=== PATIENT | female | born 1990 | race Caucasian/White ===

== ENCOUNTER 2023-11-25 23:17 | Inpatient (IN) | payer OTHER, SELFPAY ==
--- NOTE | ~2023-11-25 | FL_ITS ---
EXAMINATION: XR FLUOROSCOPY WITH IMAGES CLINICAL INFORMATION: Laparoscopic cholecystectomy. COMPARISON: CT abdomen and pelvis 11/26/2023. TECHNIQUE: Fluoroscopy Supervised By: Dr. Aissatou Lozano. Fluoroscopy Time: 63.6 seconds. Cumulative Dose: 37.74 mGy. Images: 6. FINDINGS: Contrast is seen within the common bile duct and intrahepatic biliary ducts. Some contrast is seen in the region of the jorge alberto hepatis. Please see Dr. Aissatou Lozano's report for full details. FL/FL guidance in OR IMPRESSION: Fluoroscopy and spot films provided during laparoscopic cholecystectomy.
--- NOTE | ~2023-11-25 | US_ITS ---
EXAMINATION: US ABDOMEN LIMITED CLINICAL INFORMATION: Right upper quadrant pain. Elevated LFTs. COMPARISON: CT abdomen and pelvis 11/26/2023. TECHNIQUE: Real-time imaging of the right upper quadrant abdominal viscera. FINDINGS: PANCREAS: Evaluation of pancreas limited due to bowel gas distribution. LIVER: Liver is not enlarged with the right lobe measures 16.5 cm of increased echogenicity without intrahepatic masses or ductal dilatation is seen and there is no evidence of ascites. The liver contour is normal GALLBLADDER: Gallbladder is abnormal with multiple mobile stones. The gallbladder wall collection. Sonographic Miller's sign reported positive. COMMON BILE DUCT: Normal in caliber measuring 0.6 cm in diameter. RIGHT KIDNEY: Normal. No hydronephrosis. No renal calculi or focal parenchymal lesions. The kidney measures 9.3 cm in maximum dimension. FREE FLUID: None. US/US abdomen limited IMPRESSION: Cholelithiasis with sensitivity on compression but no other evidence of cholecystitis. Limited evaluation of the pancreas. Hepatic steatosis.
--- NOTE | ~2023-11-25 | CT_ITS ---
EXAMINATION: CT ABDOMEN AND PELVIS WITHOUT CONTRAST CLINICAL INFORMATION: Right sided abdominal pain. COMPARISON: None available. TECHNIQUE: Multidetector volumetric imaging was performed from the superior aspect of the liver through the pubic symphysis. Sagittal and coronal reformatted images were obtained on the technologist's workstation. This CT examination was performed using dose optimization techniques as appropriate, variously including the following: *Automated exposure control *Adjustment of mA and/or kV according to patient size (this includes techniques or standardized protocols for targeted exams where dose is matched to indication/reason for exam; i.e. extremities or head) *Use of iterative reconstruction technique DLP: 1481 mGy-cm FINDINGS: LUNG BASES: The visualized lung bases are unremarkable. LIVER, GALLBLADDER, AND BILIARY TREE: The liver is normal in size, shape, and attenuation. No focal hepatic lesion or biliary ductal dilatation is present. The gallbladder is unremarkable with no evidence of radiopaque gallstones, gallbladder wall thickening, or obvious pericholecystic inflammatory changes. PANCREAS: There is moderate peripancreatic infiltration/fluid. SPLEEN: Unremarkable. ADRENAL GLANDS: Unremarkable. KIDNEYS AND URETERS: The kidneys are normal in size, shape, and attenuation. No hydronephrosis, hydroureter, or calculi seen. No perinephric stranding. BLADDER: Unremarkable. GASTROINTESTINAL TRACT: The small and large bowel are unremarkable. A small tubular structure along the cecum is likely the appendix. ABDOMINAL WALL: No significant hernia is appreciated. LYMPH NODES: Normal. VASCULAR: Unremarkable. PELVIC VISCERA: Unremarkable. There is a small amount of free fluid within the pelvis. OSSEOUS STRUCTURES: Unremarkable. CT/CT abdomen pelvis wo IV con IMPRESSION: 1. Moderate peripancreatic infiltration/fluid consistent with acute pancreatitis. 2. Small amount of free fluid within the pelvis. Fleischner guidelines were followed.
--- NOTE | ~2023-11-25 | FL_ITS ---
EXAMINATION: XR FLUOROSCOPY WITH IMAGES CLINICAL INFORMATION: Cholelithiasis. COMPARISON: None available. TECHNIQUE: Fluoroscopy Supervised By: Dr. Joslyn De Leon Fluoroscopy Time: 1.9 minutes. Cumulative Dose: 74.5 mGy-cm DAP: 20.3 Gy-cm2 Images: 9 FINDINGS: There are 9 digital images obtained during ERCP with contrast opacifying the CBD, right and left hepatic ducts with no intraluminal filling defect. On the last image there is a common bile duct stent. The gallbladder has been surgically removed. FL/FL guidance in OR IMPRESSION: Fluoroscopy guidance was provided to referring physician for ERCP.
[2023-11-25 23:24] VITALS: BP 133/77; PULSE 79; RESP 18; TEMP 36.6; O2SAT 98; BMI 56.7
[2023-11-25 23:53] LABS: Appearance Urine Cloudy; Color Urine Dark Yellow; Glucose Urine UA Negative (Negative); Leukocyte Esterase Urine Small (1+) (Negative); Nitrite Urine Negative (Negative); UMIC TRIGGER UACC YES; Urine Blood Negative (Negative); Urine Ketones Negative (Negative); Urine Protein Negative (Neg-Trace)
[2023-11-25 23:56] LABS: UPreg QC Valid YES; Urine Pregnancy NEGATIVE (NEGATIVE)
[2023-11-25 23:57] LABS: Bacteria Urine 2+ (None Seen); Hyaline Casts Urine 0-2 /LPF (0-2); RBC Urine 0-2 /HPF (0-2); UACC Culture Trigger YES
[2023-11-26] VITALS (7 sets, daily range): BP systolic 113–135; BP diastolic 61–72; PULSE 78–86; RESP 16–20; TEMP 36.6–36.7; O2SAT 95–99
--- NOTE | 2023-11-26 00:30 | ED.ABDPAIN ---
HPI - Abdominal Pain General Chief Complaint: Abdominal Pain Stated Complaint: Abd pain Time Seen by Provider: 11/26/23 00:00 Source: patient Mode of arrival: ambulatory Limitations: no limitations History of Present Illness HPI narrative: A 33-year-old obese female otherwise healthy came in for right upper quadrant abdominal pain for the past few weeks progressively worse today at 18:00 pain is severe and constant associated with nausea and decreased appetite, no vomiting, no fever, no chills. Pain gets worse with food. No urinary frequency or dysuria or hematuria. Patient had a normal bowel movement this morning. Never had intra-abdominal history of surgery. Patient occasionally drink alcohol. Related Data Allergies Allergy/AdvReac Type Severity Reaction Status Date / Time No Known Allergies Allergy Verified 11/25/23 23:23 Review of Systems Review of Systems All other systems are reviewed and are negative Constitutional: Reports as per HPI and Reports no additional constitutional complaints Eyes: Reports as per HPI and Reports no additional eye complaints Reports system reviewed and no additional complaints, except as documented Cardiovascular: Reports as per HPI and Reports no additional cardiovascular complaints Respiratory: Reports as per HPI and Reports no additional respiratory complaints Gastrointestinal: Reports as per HPI and Reports no additional gastrointestinal complaints Genitourinary: Reports no additional female genitourinary complaints Musculoskeletal: Reports no additional musculoskeletal complaints Skin/Breast: Reports system reviewed and no additional complaints, except as docu Psychiatric: Reports no additional psychiatric complaints Endocrine: Reports no additional endocrine complaints Hematologic/Lymphatic: Reports no additional hematologic/lymphatic complaints Allergic/Immunologic: Reports no additional allergic/immunologic complaints Reports system reviewed and no additional complaints, except as documented and Reports Abnormal speech present [facility] Social History Social History Smoked in Last 30 Days: No Use of substances other than those prescribed or required for medical reasons: No Advance Directives: No Advance Directives Information Provided: Yes Patient : No Physical Exam ED Vital Signs: Vital Signs - 24 hr 11/25/23 23:24 11/26/23 02:25 11/26/23 05:11 Temperature 97.8 F 98 F 98.0 F Pulse Rate 79 78 Respiratory Rate 18 16 16 Blood Pressure 133/77 135/72 129/63 Pulse Oximetry 98 99 96 Oxygen Delivery Method Room Air Room Air Room Air BMI result Body Mass Index 56.7 Vital signs have been reviewed and appear to be correct. Blood pressure elevated. Heart rate normal. Respiratory rate normal. Temperature normal. Oxygen saturation normal. Appearance: Alert. Oriented X3. No acute distress. Head: Normal external exam. Normocephalic. Atraumatic. No Mary signs noted. No raccoon eyes noted Eyes: PERRLA. EOMI. Conjunctiva and sclera normal. Eyelids normal. ENT: TM's Normal. Pharynx normal. Uvula midline. Moist mucous membranes. No trismus noted. No drooling noted. No muffled voice noted. Neck: Normal inspection. Neck supple. FROM. No adenopathy. Thyroid Normal. No meningeal signs. No neck mass noted. CVS: Normal heart rate and rhythm. Heart sound normal. No murmurs noted. Pulses normal throughout. Respiratory: No respiratory distress. Painless inspiration. Breath sounds normal. No wheezes/rales/rhonchi noted. Chest nontender. No accessory muscle usage noted or decreased air movement noted. Abdomen: Soft, obese, RUQ tenderness, no guarding, no rebound tenderness, Bowel sounds normal in all 4 quadrants. No distention noted. No organomegaly noted. No visible injury noted. Back: No CVA tenderness. Full range of motion noted. Skin: Skin warm and dry. Normal skin color. Normal skin turgor. No rashes/lesions/lacerations noted. Extremities: No lower extremity edema. Extremities exhibit normal range of motion. Extremities nontender. Neuro: Oriented X 3. Cranial nerve exam: II-XII are grossly intact No motor deficit. No sensory deficit. Reflexes normal. Course Reevaluation(s) Reevaluation #1: Acute pancreatitis with elevation of LFTs, patient is morbid obese which can be reason for her pancreatitis gallbladder appeared normal on the CT, ultrasound is not available in our facility at this time, discussed with Dr. Greer to get an inpatient ultrasound in the a.m., will admit as an inpatient for IV fluids, pain management. Time: 04:08 Medical Decision Making Differential Diagnosis Differential Diagnoses: The differential diagnosis associated with the presentation includes (Pancreatitis, colitis, cholecystitis, hepatitis, appendicitis, electrolyte abnormality, severe anemia, UTI, .) Admission/Observation Consideration of admission/observation: Escalation of care including admission/observation considered Consult Healthcare Provider Management of the patient was discussed with: Hospitalist (Dr. Greer) Lab Data MDM Lab Attestation statement: I reviewed the patient's lab results. 11/26/23 00:33 11/26/23 01:27 Labs: Lab Results 11/25/23 11/26/23 11/26/23 Range/Units 23:45 00:33 01:27 WBC 9.7 (4.8-10.8) X10*3/uL RBC 4.94 (4.20-5.50) X10*6/uL Hgb 13.9 (12.0-16.0) g/dl Hct 42.3 (37.0-47.0) % MCV 85.6 (80.0-98.0) fL MCH 28.1 (27.0-33.0) pg MCHC 32.9 (31.0-35.0) g/dl RDW 12.8 (11.0-16.0) % Plt Count 232 (160-400) X10*3/uL MPV 10.2 (9.4-12.3) fL Immature Gran % (Auto) 0.4 (0.0-0.4) % Neut % (Auto) 77.5 H (45-73) % Lymph % (Auto) 15.2 L (20-40) % Vance % (Auto) 6.3 (2-11) % Eos % (Auto) 0.3 (0-4) % Baso % (Auto) 0.3 (0-2) % Lymph # (Auto) 1.5 (1.2-4.9) X10*3/uL Vance # (Auto) 0.6 (0.1-1.2) X10*3/uL Eos # (Auto) 0.0 (0.0-0.4) X10*3/uL Baso # (Auto) 0.0 (0.0-0.2) X10*3/uL Abs Immat Gran (auto) 0.04 H (0.00-0.03) X10*3/uL Absolute Neuts (auto) 7.5 (2.0-8.3) x10*3/uL Absolute Nucleated RBC 0.000 (0.0-0.012) X10*3/uL Nucleated RBC % (auto) 0.0 (0.0-0.2) /100WBC Sodium 142 (135-145) mmol/L Potassium 3.8 (3.3-5.1) mmol/L Chloride 104 (96-108) mmol/L Carbon Dioxide 28 (22-29) mmol/L Anion Gap 14 (12-20) BUN 18 H (9-16) mg/dL Creatinine 0.71 (0.5-1.4) mg/dL Estim Creat Clear Calc 169.2 Estimated GFR > 60 Random Glucose 112 (60-115) mg/dL Calcium 9.2 (8.4-10.2) mg/dL Total Bilirubin 1.6 H (0.0-1.0) mg/dL AST 442 H (5-31) U/L ALT 318 H (0-31) U/L Alkaline Phosphatase 239 H (39-117) U/L Total Protein 7.3 (6.5-8.0) g/dL Albumin 3.9 (3.5-5.0) g/dL Lipase > 3000 H (8-78) U/L Urine Color Dark Yellow Urine Appearance Cloudy Urine pH 7.0 (5.0-9.0) Ur Specific [place] 1.020 (1.005-1.025) Urine Protein Negative (Neg-Trace) mg/dL Urine Glucose (UA) Negative (Negative) mg/dL Urine Ketones Negative (Negative) mg/dL Urine Blood Negative (Negative) Urine Nitrite Negative (Negative) Ur Leukocyte Esterase Small (1+) H (Negative) Urine RBC 0-2 (0-2) /HPF Urine WBC 6-10 H (0-5) /HPF Ur Squamous Epith Cells 11-20 (0-2) /HPF Urine Bacteria 2+ (None Seen) Hyaline Casts 0-2 (0-2) /LPF Urine Test NEGATIVE (NEGATIVE) Independent Interpretation I performed an independent interpretation of an: CT Scan (Abdomen pelvis:1. Moderate peripancreatic infiltration/fluid consistent with acute pancreatitis. 2. Small amount of free fluid within the pelvis. ) Radiology Impression Discussion of test interpretation with radiology: I have reviewed the radiologist's reading. Chronic Conditions Patient?s care impacted by: Other (Morbid obesity) Medications Administered Generic Name Dose Route Start Last Admin Trade Name Freq PRN Reason Stop Dose Admin Morphine Sulfate 2 mg 11/26/23 00:21 11/26/23 00:41 Morphine Sulfate 2 Mg/Ml Cartridge IVPUSH 2 mg Q5M PRN Administration Chest Pain Protocol Discontinued Medications Generic Name Dose Route Start Last Admin Trade Name Freq PRN Reason Stop Dose Admin Sodium Chloride 1,000 mls @ 999 mls/hr 11/26/23 00:21 11/26/23 01:45 Ns IV 11/26/23 01:21 Infused .Q1H1M ONE Infusion Sodium Chloride 1,000 mls @ 999 mls/hr 11/26/23 04:14 11/26/23 05:24 Ns IV 11/26/23 05:14 999 mls/hr .Q1H1M ONE Administration Morphine Sulfate 2 mg 11/26/23 04:14 11/26/23 05:24 Morphine Sulfate 2 Mg/Ml Cartridge IVPUSH 11/26/23 04:15 2 mg ONCE ONE Administration Protocol Ondansetron HCl 4 mg 11/26/23 00:21 11/26/23 00:41 Ondansetron Hcl 4 Mg/2 Ml Vial IVPUSH 11/26/23 00:22 4 mg ONCE ONE Administration Discharge Plan Discharge Clinical Impression: Pancreatitis Patient Disposition: Admitted As Inpatient
[2023-11-26] MEDS: Morphine Sulfate 2 MG/ML CARTRIDGE IVPUSH ×6 (00:41→22:28)
[2023-11-26] MEDS: ondansetron HCL 4 MG/2 ML VIAL IVPUSH ×3 (00:41→15:12)
[2023-11-26] MEDS: 0.9 % Sodium Chloride 1,000 ML 999 ML IV ×2 (00:42→05:24)
[2023-11-26 00:43] LABS: Basophils Percent Auto 0.3 % (0-2); Eosinophils Percent Auto 0.3 % (0-4); Hematocrit 42.3 % (37.0-47.0); Hemoglobin 13.9 g/dl (12.0-16.0); Imm Gran Abs Auto 0.04 X10*3/uL (0.00-0.03); Imm Gran Pct Auto 0.4 % (0.0-0.4); Lymphocytes Absolute Auto 1.5 X10*3/uL (1.2-4.9); Lymphocytes Percent Auto 15.2 % (20-40); MANUAL DIFF FLAG NO; Mean Corpuscular HGB Conc 32.9 g/dl (31.0-35.0); Mean Corpuscular Hemoglobin 28.1 pg (27.0-33.0); Mean Corpuscular Volume 85.6 fL (80.0-98.0); Mean Platelet Volume 10.2 fL (9.4-12.3); Monocytes Absolute Auto 0.6 X10*3/uL (0.1-1.2); Monocytes Percent Auto 6.3 % (2-11); Neutrophils Absolute Auto 7.5 x10*3/uL (2.0-8.3); Neutrophils Percent Auto 77.5 % (45-73); Platelet Count 232 X10*3/uL (160-400); Red Blood Count 4.94 X10*6/uL (4.20-5.50); Red Cell Distribution Width 12.8 % (11.0-16.0); White Blood Count 9.7 X10*3/uL (4.8-10.8)
--- NOTE | 2023-11-26 00:49 | PC.NURSE ---
PT vomited large amount of liquid emesis. Provider aware.
[2023-11-26 01:56] LABS: Alanine Aminotransferase 318 U/L (0-31); Albumin Level 3.9 g/dL (3.5-5.0); Alkaline Phosphatase 239 U/L (39-117); Anion Gap 14 (12-20); Aspartate Amino Transferase 442 U/L (5-31); Bilirubin Total 1.6 mg/dL (0.0-1.0); Blood Urea Nitrogen 18 mg/dL (9-16); Calcium 9.2 mg/dL (8.4-10.2); Carbon Dioxide 28 mmol/L (22-29); Chloride 104 mmol/L (96-108); Creatinine Clr Calc Pharmacy 169.2; Estimated Glomerular Filt Rate > 60; Glucose Random 112 mg/dL (60-115); Potassium 3.8 mmol/L (3.3-5.1); Sodium 142 mmol/L (135-145); Total Protein 7.3 g/dL (6.5-8.0)
[2023-11-26 03:59] LABS: Lipase > 3000 U/L (8-78)
--- NOTE | 2023-11-26 05:34 | P.HPHOSP_ITS ---
History of Present Illness Date of Service: 11/26/23 Attending physician on admission: Aylin Vasquez Chief Complaint: Abdominal pain Emma Almanza is a 33 years old woman with no significant past medical history presents to the emergency department complaining of right upper quadrant and epigastric pain that started last night associated with multiple events of bilious vomiting. She described the pain as colicky. Her last meal before the symptoms was assumed. She denies fever, chills, diarrhea or constipation. She did not report any acute urinary symptoms. She denies alcohol abuse (only drinks in occasions -last time she drank alcoholic beverage was 2 weeks ago), no tobacco smoking or illicit drug use. She denied any cardiopulmonary. She has no history of abdominal surgeries and has never been hospitalized. In the ED, she was found to have normal vital signs. Blood workup is remarkable elevated lipase, > 3000 as well as elevated AST, ALT, total bilirubin and alk- phos. There is no leukocytosis or anemia. ED tx: NS 2 L bolus, Zofran 4 mg IV and morphine 2 mg IV. Review of Systems 2 Review of Systems: All 12 systems were reviewed and normal except as noted in HPI. [facility] Social History Smoked in Last 30 Days: No Use of substances other than those prescribed or required for medical reasons: No Advance Directives: No Advance Directives Information Provided: Yes Patient : No Meds Allergies Allergy/AdvReac Type Severity Reaction Status Date / Time No Known Allergies Allergy Verified 11/25/23 23:23 Active Medications: Current Medications Hydromorphone HCl (Hydromorphone Hcl 1 Mg/Ml Syringe) 0.5 mg IVPUSH Q4H PRN; Protocol PRN Reason: Pain, Severe (Pain Scale 7-10) Lactated Ringer's (Lr) 1,000 mls @ 125 mls/hr IVCONT .Q8H GEORGETTE Morphine Sulfate (Morphine Sulfate 2 Mg/Ml Cartridge) 2 mg IVPUSH Q5M PRN; Protocol PRN Reason: Chest Pain Last Admin: 11/26/23 00:41 Dose: 2 mg Ondansetron HCl (Ondansetron Hcl 4 Mg/2 Ml Vial) 4 mg IVPUSH Q8H PRN PRN Reason: Nausea and Vomiting Pantoprazole Sodium (Pantoprazole Sodium 40 Mg/10 Ml Vial) 40 mg IVPUSH DAILY [facility] Sodium Chloride (0.9 % Sodium Chloride Flush 3 Ml Syringe) 3 ml IVFLUSH QSHIFT GEORGETTE Physical Exam 2 Vital Signs and Narrative: Vital Signs: Last Vital Signs Temp 98.0 F 11/26/23 05:11 Pulse 78 11/26/23 05:27 Resp 16 11/26/23 05:27 BP 129/63 11/26/23 05:27 Pulse Ox 98 11/26/23 05:27 O2 Del Method Room Air 11/26/23 05:27 BMI result Body Mass Index 56.7 Constitutional - Awake and Alert, No apparent distress. Looks uncomfortable due to abdominal pain. Obese. Afebrile Eyes - No scleral icterus Heart - S1S2, RRR. Lungs - Normal lung expansion, Normal respiratory effort, No respiratory distress, CTA bilaterally Gastrointestinal - No distension. Increased bowel sounds. Tenderness to palpation: Right upper quadrant epigastrium. No rebound. No guarding Extremities - No calf tenderness bilaterally, no swelling Musculoskeletal - Normal inspection, normal ROM Skin - Warm/Dry Neurological - Alert & oriented x3. No focal weakness grossly noted. Normal speech. Normal behavior. Psychological - Appropriate affect Results Labs 11/26/23 00:33 11/26/23 01:27 Labs: Laboratory Results - last 24 hr 11/25/23 11/26/23 11/26/23 23:45 00:33 01:27 MCV 85.6 MCH 28.1 MCHC 32.9 RDW 12.8 Plt Count 232 MPV 10.2 Immature Gran % (Auto) 0.4 Neut % (Auto) 77.5 H Lymph % (Auto) 15.2 L [place] % (Auto) 6.3 Eos % (Auto) 0.3 Baso % (Auto) 0.3 Lymph # (Auto) 1.5 [place] # (Auto) 0.6 Eos # (Auto) 0.0 Baso # (Auto) 0.0 Abs Immat Gran (auto) 0.04 H Absolute Neuts (auto) 7.5 Absolute Nucleated RBC 0.000 Nucleated RBC % (auto) 0.0 Anion Gap 14 Estim Creat Clear Calc 169.2 Estimated GFR > 60 Random Glucose 112 Calcium 9.2 Total Bilirubin 1.6 H AST 442 H ALT 318 H Alkaline Phosphatase 239 H Total Protein 7.3 Albumin 3.9 Lipase > 3000 H Urine Color Dark Yellow Urine Appearance Cloudy Urine pH 7.0 Ur Specific [place] 1.020 Urine Protein Negative Urine Glucose (UA) Negative Urine Ketones Negative Urine Blood Negative Urine Nitrite Negative Ur Leukocyte Esterase Small (1+) H Urine RBC 0-2 Urine WBC 6-10 H Ur Squamous Epith Cells 11-20 Urine Bacteria 2+ Hyaline Casts 0-2 Urine Test NEGATIVE Imaging Radiologist's Impressions: Impressions Abdomen/Pelvis CT 11/26/23 01:09 IMPRESSION: 1. Moderate peripancreatic infiltration/fluid consistent with acute pancreatitis. 2. Small amount of free fluid within the pelvis. Fleischner guidelines were followed. Assessment and Plan (1) Pancreatitis: Status: Acute (2) Elevated LFTs: Status: Acute Plan Emma Almanza is a 33 years old woman admitted with: * Acute pancreatitis, secondary to choledocholithiasis? Admit to hospitalist service. Keep NPO. Start IV fluids. Pain control with Dilaudid as needed. Antiemetic therapy as needed. Check direct bilirubin. Obtain abdominal ultrasound to assess for cholelithiasis/CBD dilatation. If positive patient might need MRCP or ERCP. Continue to monitor LFTs. Gastroenterology consult for further recommendations. * Obesity. BMI 56.7 kg/m2. Weight loss. DVT prophylaxis: Heparin subcut Code status: Full Patient will need hospitalization for at least 2 midnights for acute pancreatitis treatment with IV fluids and IV pain medications. She also will need evaluation with abdominal ultrasound and assessment by subspecialty. Quality Stroke Does the patient have a stroke diagnosis?: No VTE Prior VTE?: No VTE Risk Level:: Medical - moderate - high VTE Device Contraindication: N/A - Device Ordered VTE Drug Contraindication: Treatment Not Indicated
[2023-11-26 05:47] LABS: Bilirubin Direct 1.1 mg/dL (0.0-0.5)
[2023-11-26 06:06] LABS: MANUAL DIFF FLAG NO
[2023-11-26 06:17] LABS: Basophils Percent Auto 0.2 % (0-2); Hematocrit 39.8 % (37.0-47.0); Imm Gran Abs Auto 0.05 X10*3/uL (0.00-0.03); Imm Gran Pct Auto 0.5 % (0.0-0.4); Lymphocytes Absolute Auto 0.9 X10*3/uL (1.2-4.9); Lymphocytes Percent Auto 9.6 % (20-40); Mean Corpuscular HGB Conc 32.7 g/dl (31.0-35.0); Mean Corpuscular Hemoglobin 28.6 pg (27.0-33.0); Mean Corpuscular Volume 87.5 fL (80.0-98.0); Monocytes Absolute Auto 0.2 X10*3/uL (0.1-1.2); Monocytes Percent Auto 2.1 % (2-11); Neutrophils Absolute Auto 8.6 x10*3/uL (2.0-8.3); Neutrophils Percent Auto 87.6 % (45-73); Platelet Count 222 X10*3/uL (160-400); Red Blood Count 4.55 X10*6/uL (4.20-5.50); Red Cell Distribution Width 12.7 % (11.0-16.0); White Blood Count 9.8 X10*3/uL (4.8-10.8)
[2023-11-26 06:24] LABS: Alanine Aminotransferase 343 U/L (0-31); Albumin Level 3.6 g/dL (3.5-5.0); Alkaline Phosphatase 247 U/L (39-117); Anion Gap 12 (12-20); Aspartate Amino Transferase 379 U/L (5-31); Bilirubin Total 1.8 mg/dL (0.0-1.0); Blood Urea Nitrogen 16 mg/dL (9-16); Calcium 8.7 mg/dL (8.4-10.2); Carbon Dioxide 27 mmol/L (22-29); Chloride 107 mmol/L (96-108); Creatinine Clr Calc Pharmacy 176.6; Estimated Glomerular Filt Rate > 60; Glucose Random 117 mg/dL (60-115); Potassium 4.5 mmol/L (3.3-5.1); Sodium 141 mmol/L (135-145); Total Protein 6.5 g/dL (6.5-8.0)
--- NOTE | 2023-11-26 07:44 | PM.GICN ---
History of Present Illness Data of Consult Service Date: 11/26/23 Requesting physician: Aylin Vasquez Primary Care Provider: Unknown Physician HPI Reason for consult: Elevated LFTs, pancreatitis 33 YF seen at [facility] ED on 11/26/23 with right upper quadrant and epigastric pain with multiple events of bilious vomiting since last night. Pt described the pain as colicky. Her last meal before the symptoms was assumed. She denied fever, chills, diarrhea, constipation or urinary symptoms. She denies alcohol abuse (only drinks on special occasions -last time she drank alcoholic beverage was 2 weeks ago), no tobacco smoking or illicit drug use. Pt denied any cardiac or pulmonary problems or past abdominal surgeries. She has never been hospitalized. In the ED, Labs showed an elevated lipase, > 3000, TB of 1.6, AST 442, ALT 318, AP 239. ED tx: NS 2 L bolus, Zofran 4 mg IV and morphine 2 mg IV. 11/26/[address] SCAN SHOWED: 1. Moderate peripancreatic infiltration/fluid consistent with acute pancreatitis. 2. Small amount of free fluid within the pelvis. 11/26/23 ABD US SHOWED: PANCREAS: Evaluation of pancreas limited due to bowel gas distribution. LIVER: Liver is not enlarged with the right lobe measures 16.5 cm of increased echogenicity without intrahepatic masses or ductal dilatation is seen and there is no evidence of ascites. The liver contour is normal GALLBLADDER: Gallbladder is abnormal with multiple mobile stones. The gallbladder wall collection. Sonographic Miller's sign reported positive. COMMON BILE DUCT: Normal in caliber measuring 0.6 cm in diameter. [facility]LY [facility] Social History Social History Household Members: None Housing: Condominium Do you presently have visiting nurse or other home services: No Patient Tobacco Use Status: Never used Tobacco service: No Meds Allergies Allergy/AdvReac Type Severity Reaction Status Date / Time No Known Allergies Allergy Verified 11/25/23 23:23 Active Medications: Current Medications Hydromorphone HCl (Hydromorphone Hcl 1 Mg/Ml Syringe) 0.5 mg IVPUSH Q4H PRN; Protocol PRN Reason: Pain, Severe (Pain Scale 7-10) Lactated Ringer's (Lr) 1,000 mls @ 125 mls/hr IVCONT .Q8H [facility] Morphine Sulfate (Morphine Sulfate 2 Mg/Ml Cartridge) 2 mg IVPUSH Q5M PRN; Protocol PRN Reason: Chest Pain Last Admin: 11/26/23 00:41 Dose: 2 mg Ondansetron HCl (Ondansetron Hcl 4 Mg/2 Ml Vial) 4 mg IVPUSH Q8H PRN PRN Reason: Nausea and Vomiting Pantoprazole Sodium (Pantoprazole Sodium 40 Mg/10 Ml Vial) 40 mg IVPUSH DAILY [facility] Sodium Chloride (0.9 % Sodium Chloride Flush 3 Ml Syringe) 3 ml IVFLUSH QSHIFT [facility] Home Medications Medication Instructions Recorded Confirmed Last Taken Type ibuprofen 600 mg tablet 600 mg PO DAILY PRN Pain 11/26/23 11/26/23 Unknown History Physical Exam Vital Signs: Vital Signs: Last Vital Signs Temp 98.1 F 11/26/23 07:13 Pulse 80 11/26/23 07:13 Resp 18 11/26/23 07:13 BP 113/69 11/26/23 07:13 Pulse Ox 99 11/26/23 07:13 O2 Del Method Room Air 11/26/23 07:13 BMI result Body Mass Index 56.7 Const: General: no acute distress Nutritional Appearance: obese Orientation/consciousness: patient oriented x3 Limitations: no limitations HEENT: Head: Yes normal to inspection Ears: hearing grossly normal bilaterally Eyes: Sclerae: sclerae normal Pupils: Equal, round and reactive pupils present Neck: Neck: Yes normal visual inspection Chest: Chest palpation & inspection: normal inspection of the chest Resp: Effort & Inspection: normal respiratory effort Auscultation: clear to auscultation bilaterally Cardio: Palpation: normal PMI Rate: regular rate Rhythm: regular rhythm Heart sounds: S1 normal heart sound present, S2 normal heart sound present and no murmurs GI: Palpation (GI): Soft to palpation, Tenderness to palpation present (GI) (epigastric and RUQ tenderness without rebound) and No hepatosplenomegaly present Auscultation: normal bowel sounds Rectal Exam - Female: deferred Skin: General skin exam: no rashes or lesions noted Neuro: General: patient oriented x3, gait normal and moves all extremities Cranial nerves: Yes Equal, round and reactive pupils present Psych: Appearance: grossly normal Mental Status: mental status grossly normal Results Labs 11/26/23 05:59 11/28/23 05:12 Labs: Short CBC 11/26/23 11/26/23 Range/Units 00:33 05:59 WBC 9.7 9.8 (4.8-10.8) X10*3/uL Hgb 13.9 13.0 (12.0-16.0) g/dl Hct 42.3 39.8 (37.0-47.0) % Plt Count 232 222 (160-400) X10*3/uL BMP 11/26/23 11/26/23 01:27 05:59 Sodium 142 141 Potassium 3.8 4.5 Chloride 104 107 Carbon Dioxide 28 27 BUN 18 H 16 Creatinine 0.71 0.68 Calcium 9.2 8.7 Liver Function 11/26/23 11/26/23 Range/Units 01:27 05:59 Total Bilirubin 1.6 H 1.8 H (0.0-1.0) mg/dL Direct Bilirubin 1.1 H (0.0-0.5) mg/dL AST 442 H 379 H (5-31) U/L ALT 318 H 343 H (0-31) U/L Alkaline Phosphatase 239 H 247 H (39-117) U/L Albumin 3.9 3.6 (3.5-5.0) g/dL Urine 11/25/23 Range/Units 23:45 Urine Color Dark Yellow Urine Appearance Cloudy Urine pH 7.0 (5.0-9.0) Ur Specific [place] 1.020 (1.005-1.025) Urine Protein Negative (Neg-Trace) mg/dL Urine Glucose (UA) Negative (Negative) mg/dL Assessment and Plan (1) Elevated LFTs: Status: Acute (2) Pancreatitis: Status: Acute Plan 33 YF admitted to [facility] with epigastric and RUQ pain with multiple episodes of bilious vomiting since last night. She denies alcohol abuse (only drinks on special occasions -last time she drank alcoholic beverage was 2 weeks ago). In the ED, Labs showed an elevated lipase, > 3000, TB of 1.6, AST 442, ALT 318, AP 239. Abd CT scan showed moderate peripancreatic infiltrate/fluid consistent with acute pancreatitis. Abdominal ultrasound showed abnormal gallbladder with multiple mobile stone and a positive Miller's sign and normal CBD of 6 mm. Pt has acute biliary pancreatitis and has likely passed the stone since her abdominal pain and LFTs are improving. RECOMMENDATIONS: 1. Agree with IV pain medications and antiemetics 2. Repeat LFTs and lipase this evening - order placed. If LFT's remain elevated, pt will need an MRCP to rule out CBD stone. 3. Surgical evaluation to discuss lap césar after pancreatitis resolves. Procedures Date of Service Date of Service: 11/29/23
[2023-11-26] MEDS: 0.9 % Sodium Chloride Flush 3 ML SYRINGE IVFLUSH (08:15)
[2023-11-26] MEDS: Pantoprazole Sodium 40 MG/10 ML VIAL IVPUSH (08:15)
[2023-11-26] MEDS: Lactated Ringers 1,000 ML 125 ML IVCONT ×3 (08:17→22:11)
--- NOTE | 2023-11-26 08:19 | PHA.MEDREC ---
Pharmacy Consult ? Medication Reconciliation Pharmacy has completed the medication reconciliation. Patient confirms she is taking no medication except Ibuprofen when needed.
[2023-11-26 08:53] LABS: Triglycerides 65 mg/dL (<150)
--- NOTE | 2023-11-26 11:37 | MHC.CM.PN ---
Female 33 DX Pancreatitis. She lives alone. She is independent with all functional mobility. A new HCP has been documented and scanned into the EMR. DP home self care. Family will provide transport home.
--- NOTE | 2023-11-26 14:53 | PM.EVENT ---
Event Note Date of Service: 11/26/23 Event Note: Patient seen and examined by hospitalist team earlier Seen and examined again Nausea vomiting seems to be improving but still has abdominal pain Physical exam: Unchanged from H&P Assessment and plan: Coordinated in H&P Acute pancreatitis-? Etiology unclear Continue IV fluid, added triglyceride level, GI evaluation pending Time Spent With Patient Time: Total time managing care of this patient today ____ minutes.
[2023-11-26 16:47] LABS: Alanine Aminotransferase 286 U/L (0-31); Albumin Level 3.4 g/dL (3.5-5.0); Alkaline Phosphatase 240 U/L (39-117); Aspartate Amino Transferase 213 U/L (5-31); Bilirubin Direct 0.6 mg/dL (0.0-0.5); Bilirubin Total 1.1 mg/dL (0.0-1.0); Total Protein 6.1 g/dL (6.5-8.0)
[2023-11-26 17:03] LABS: Lipase 1200 U/L (8-78)
[2023-11-27] MEDS: ondansetron HCL 4 MG/2 ML VIAL IVPUSH ×3 (02:19→21:38)
[2023-11-27] MEDS: Morphine Sulfate 2 MG/ML CARTRIDGE IVPUSH ×4 (02:20→21:38)
[2023-11-27 03:12] VITALS: BP 123/60; PULSE 88; RESP 16; TEMP 36.6; O2SAT 95
[2023-11-27] MEDS: Lactated Ringers 1,000 ML 125 ML IVCONT ×4 (03:41→19:57)
[2023-11-27 07:03] LABS: Lipase 431 U/L (8-78)
[2023-11-27] MEDS: Pantoprazole Sodium 40 MG/10 ML VIAL IVPUSH (07:37)
[2023-11-27] MEDS: 0.9 % Sodium Chloride Flush 3 ML SYRINGE IVFLUSH (07:38)
[2023-11-27 07:46] VITALS: BP 132/76; PULSE 90; RESP 16; TEMP 36.7; O2SAT 95
--- NOTE | 2023-11-27 11:02 | HO.PM.IMPN ---
Subjective Subjective Date of Service: 11/27/23 Interval History: pancreatitis , elevated lft's Review of Systems abd pain similar no nausea or vomiting or fevers Physical Exam Vital Signs: Vital Signs: Last Vital Signs Temp 98.0 F 11/27/23 07:46 Pulse 90 11/27/23 07:46 Resp 16 11/27/23 07:46 BP 132/76 11/27/23 07:46 Pulse Ox 95 11/27/23 07:46 O2 Del Method Room Air 11/27/23 07:46 BMI result Body Mass Index 56.7 Objective Data Active Medications Lactated Ringer's (Lr) 1,000 mls @ 125 mls/hr IVCONT .Q8H [facility] Last Admin: 11/27/23 03:41 Dose: 125 mls/hr Documented By: KYA Morphine Sulfate (Morphine Sulfate 2 Mg/Ml Cartridge) 2 mg IVPUSH Q4H PRN; Protocol PRN Reason: Pain, Moderate(Pain Scale 4-6) Last Admin: 11/27/23 07:38 Dose: 2 mg Documented By: LUIS Ondansetron HCl (Ondansetron Hcl 4 Mg/2 Ml Vial) 4 mg IVPUSH Q8H PRN PRN Reason: Nausea and Vomiting Last Admin: 11/27/23 02:19 Dose: 4 mg Documented By: KYA Pantoprazole Sodium (Pantoprazole Sodium 40 Mg/10 Ml Vial) 40 mg IVPUSH DAILY [facility] Last Admin: 11/27/23 07:37 Dose: 40 mg Documented By: LUIS Sodium Chloride (0.9 % Sodium Chloride Flush 3 Ml Syringe) 3 ml IVFLUSH QSHIFT [facility] Last Admin: 11/27/23 07:38 Dose: 3 ml Documented By: LUIS Labs 11/26/23 05:59 11/26/23 05:59 Labs: Laboratory Results - last 24 hr 11/26/23 11/27/23 16:23 05:06 Hold Purple Top SEE NOTE Total Bilirubin 1.1 H Direct Bilirubin 0.6 H AST 213 H ALT 286 H Alkaline Phosphatase 240 H Total Protein 6.1 L Albumin 3.4 L Lipase 1200 H 431 H Assessment and Plan (1) Elevated LFTs: Status: Acute (2) Pancreatitis: Status: Acute Plan 33 years old woman admitted with: Acute pancreatitis, secondary to choledocholithiasis? lft's,lipase improving abd similar abd ct scan: Moderate peripancreatic infiltration/fluid consistent with acute pancreatitis.Small amount of free fluid within the pelvis. abd us:Cholelithiasis with sensitivity on compression but no other evidence of cholecystitis. continue IV fluids,Pain control with Dilaudid , Antiemetic . Gifollowing ,surgery eavl for cholelithasis/pancreaitis. morbid Obesity. BMI 56.7 kg/m2. encouraged to lose weight,cut down calories Dvt prophylaxis: Heparin subcut ongoing hospitalization need for 48-72 hrs for acute pancreatitis treatment with IV fluids and IV pain medications. She also will need evaluation with abdominal ultrasound and assessment by subspecialty. Quality Stroke Does the patient have a stroke diagnosis?: No VTE Prior VTE?: No VTE Risk Level:: Medical - moderate - high VTE Device Contraindication: N/A - Device Ordered VTE Drug Contraindication: Treatment Not Indicated
[2023-11-27 15:30] VITALS: BP 120/60; PULSE 86; RESP 16; TEMP 36.2; O2SAT 96
[2023-11-27 19:57] VITALS: BP 127/60; PULSE 83; RESP 18; TEMP 36.9; O2SAT 95
[2023-11-28] MEDS: Lactated Ringers 1,000 ML 125 ML IVCONT (01:08)
[2023-11-28 03:15] VITALS: BP 131/75; PULSE 79; RESP 16; TEMP 36.7; O2SAT 94
[2023-11-28 06:38] LABS: Alanine Aminotransferase 132 U/L (0-31); Alkaline Phosphatase 172 U/L (39-117); Anion Gap 14 (12-20); Aspartate Amino Transferase 43 U/L (5-31); Bilirubin Total 0.6 mg/dL (0.0-1.0); Blood Urea Nitrogen 6 mg/dL (9-16); Calcium 8.4 mg/dL (8.4-10.2); Carbon Dioxide 26 mmol/L (22-29); Chloride 105 mmol/L (96-108); Creatinine Clr Calc Pharmacy 179.3; Estimated Glomerular Filt Rate > 60; Glucose Random 88 mg/dL (60-115); Potassium 3.9 mmol/L (3.3-5.1); Sodium 141 mmol/L (135-145); Total Protein 5.7 g/dL (6.5-8.0)
[2023-11-28 07:11] VITALS: BP 126/59; PULSE 96; RESP 18; TEMP 36.6; O2SAT 92
[2023-11-28 07:50] LABS: Lipase 63 U/L (8-78)
[2023-11-28] MEDS: Pantoprazole Sodium 40 MG/10 ML VIAL IVPUSH (08:23)
[2023-11-28] MEDS: Acetaminophen 325 MG TABLET 650 MG PO (12:20)
--- NOTE | 2023-11-28 13:08 | HO.PM.IMPN ---
Subjective Subjective Date of Service: 11/28/23 Interval History: abd pain Review of Systems abd pain somewhat improving has headaches no fevers Physical Exam Vital Signs: Vital Signs: Last Vital Signs Temp 97.8 F 11/28/23 07:11 Pulse 96 11/28/23 07:11 Resp 18 11/28/23 07:11 BP 126/59 L 11/28/23 07:11 Pulse Ox 92 11/28/23 07:11 O2 Del Method Room Air 11/28/23 07:11 BMI result Body Mass Index 56.7 Appearance: Alert.? Oriented X3.? not in distress.?. cvs: rrr, [id number] , no murmur res: clear to auscultation ,no rhonchii or wheezing abd: no rebound or guarding ,mild ruq/epigastric discomfort, bs present. ext pulses present , no cyanosis . neuro: axo3 , nonfocal. Objective Data Active Medications Acetaminophen (Acetaminophen 325 Mg Tablet) 650 mg PO Q6H PRN PRN Reason: Pain, Moderate(Pain Scale 4-6) Last Admin: 11/28/23 12:20 Dose: 650 mg Documented By: LUIS Morphine Sulfate (Morphine Sulfate 2 Mg/Ml Cartridge) 2 mg IVPUSH Q4H PRN; Protocol PRN Reason: Pain, Moderate(Pain Scale 4-6) Last Admin: 11/27/23 21:38 Dose: 2 mg Documented By: KYA Ondansetron HCl (Ondansetron Hcl 4 Mg/2 Ml Vial) 4 mg IVPUSH Q8H PRN PRN Reason: Nausea and Vomiting Last Admin: 11/27/23 21:38 Dose: 4 mg Documented By: KYA Pantoprazole Sodium (Pantoprazole Sodium 40 Mg/10 Ml Vial) 40 mg IVPUSH DAILY [facility] Last Admin: 11/28/23 08:23 Dose: 40 mg Documented By: LUIS Sodium Chloride (0.9 % Sodium Chloride Flush 3 Ml Syringe) 3 ml IVFLUSH QSHIFT [facility] Last Admin: 11/28/23 07:51 Dose: Not Given Documented By: LUIS Non-Admin Reason: IV Running Labs 11/26/23 05:59 11/28/23 05:12 Labs: Laboratory Results - last 24 hr 11/28/23 05:12 Hold Purple Top SEE NOTE Anion Gap 14 Estim Creat Clear Calc 179.3 Estimated GFR > 60 Random Glucose 88 Calcium 8.4 Total Bilirubin 0.6 AST 43 H ALT 132 H Alkaline Phosphatase 172 H Total Protein 5.7 L Albumin 3.0 L Lipase 63 Microbiology Microbiology Results: Microbiology 11/25/23 Unknown Urine Culture - Final Urine clean catch - Urine bellamy top Assessment and Plan (1) Elevated LFTs: Status: Acute (2) Pancreatitis: Status: Acute Assessment and Plan: 33 years old woman admitted with: Acute pancreatitis, secondary to choledocholithiasis? lft's,lipase improving abd similar abd ct scan: Moderate peripancreatic infiltration/fluid consistent with acute pancreatitis.Small amount of free fluid within the pelvis. abd us:Cholelithiasis with sensitivity on compression but no other evidence of cholecystitis. continue IV fluids,Pain control with Dilaudid , Antiemetic . Gifollowing ,surgery eval for cholelithasis/pancreaitis. morbid Obesity. BMI 56.7 kg/m2. encouraged to lose weight,cut down calories Dvt prophylaxis: Heparin subcut ongoing hospitalization need for 48-72 hrs for acute pancreatitis treatment with IV fluids and IV pain medications. She also will need evaluation with abdominal ultrasound and assessment by subspecialty. Quality Stroke Does the patient have a stroke diagnosis?: No VTE Prior VTE?: No VTE Risk Level:: Medical - moderate - high VTE Device Contraindication: N/A - Device Ordered VTE Drug Contraindication: Treatment Not Indicated
[2023-11-28 14:55] VITALS: BP 135/75; PULSE 68; RESP 18; TEMP 36.1; O2SAT 97
[2023-11-28] MEDS: Lactated Ringers 1,000 ML 80 ML IVCONT ×2 (15:01→23:22)
--- NOTE | 2023-11-28 15:12 | PM.CNGS ---
History of Present Illness Consult details Consult date: 11/28/23 Reason for consult: abdominal pain Requesting physician: Melissa Holley Narrative: THE PATIENT IS A 33-YEAR-OLD FEMALE WITH A BMI OF 56 who presented with abdominal pain nausea and who it was determined had moderate pancreatitis with elevated lipase in 3000 range. She denies any alcohol intake no significant medications that are causative. Right upper quadrant ultrasound showed gallbladder with multiple stones in the common bile duct at around 0.6 cm. GI saw the patient after she was admitted and she was treated conservatively and her LFTs which were elevated decreased by the next day. As a result we were determining that her pancreatitis was most likely causative to small gallstones causing partial blockage of the common bile duct and as a result causing blockage of the pancreatic drainage and hence some degree of pancreatitis. By hospital day 3. However her LFTs were much improved and her lipase was back to normal. She was tolerating clear liquids well without any other significant abdominal pain. We are being consulted to asked to carry out laparoscopic cholecystectomy for the cholelithiasis. Patient has never had any surgery before. She is gained and lost weight over time. Currently she is 340 lb. Review of Systems Review of Systems: Yes all other systems are reviewed and are negative [facility] Social History Social History Household Members: None Housing: Condominium Do you presently have visiting nurse or other home services: No Patient Tobacco Use Status: Never used Tobacco service: No Meds Allergies Allergy/AdvReac Type Severity Reaction Status Date / Time No Known Allergies Allergy Verified 11/25/23 23:23 Active Medications: Current Medications Acetaminophen (Acetaminophen 325 Mg Tablet) 650 mg PO Q6H PRN PRN Reason: Pain, Moderate(Pain Scale 4-6) Last Admin: 11/28/23 12:20 Dose: 650 mg Lactated Ringer's (Lr) 1,000 mls @ 80 mls/hr IVCONT .[id number] [facility] Last Admin: 11/28/23 15:01 Dose: 80 mls/hr Morphine Sulfate (Morphine Sulfate 2 Mg/Ml Cartridge) 2 mg IVPUSH Q4H PRN; Protocol PRN Reason: Pain, Moderate(Pain Scale 4-6) Last Admin: 11/27/23 21:38 Dose: 2 mg Ondansetron HCl (Ondansetron Hcl 4 Mg/2 Ml Vial) 4 mg IVPUSH Q8H PRN PRN Reason: Nausea and Vomiting Last Admin: 11/27/23 21:38 Dose: 4 mg Pantoprazole Sodium (Pantoprazole Sodium 40 Mg/10 Ml Vial) 40 mg IVPUSH DAILY [facility] Last Admin: 11/28/23 08:23 Dose: 40 mg Sodium Chloride (0.9 % Sodium Chloride Flush 3 Ml Syringe) 3 ml IVFLUSH QSHIFT [facility] Last Admin: 11/28/23 07:51 Dose: Not Given Home Medications Medication Instructions Recorded Confirmed Last Taken Type ibuprofen 600 mg tablet 600 mg PO DAILY PRN Pain 11/26/23 11/26/23 Unknown History Physical Exam Vital Signs: Vital Signs: Last Vital Signs Temp 97.0 F 11/28/23 14:55 Pulse 68 11/28/23 14:55 Resp 18 11/28/23 14:55 BP 135/75 11/28/23 14:55 Pulse Ox 97 11/28/23 14:55 O2 Del Method Room Air 11/28/23 14:55 BMI result Body Mass Index 56.7 Const: General: cooperative, healthy appearing, comfortable and no acute distress Orientation/consciousness: patient oriented x3 Eyes: Other: Nonicteric Resp: Effort & Inspection: normal respiratory effort Auscultation: clear to auscultation bilaterally Cardio: Rate: regular rate Rhythm: regular rhythm GI: Other: Abdomen is obese but she is relatively soft tender in the epigastric and little lower midline area a little less tender in the right upper quadrant and not tender in the left upper quadrant or lower abdomen. No guarding no rebound no peritoneal signs. Skin: Other: Nonicteric Neuro: General: patient oriented x3 Cranial nerves: Yes CN's II-XII intact bilaterally Extrem: General: Yes normal to inspection Psych: Appearance: grossly normal Mental Status: mental status grossly normal Speech and movement: Normal speech and movement present Affect: normal affect Thought process: Normal thought process present Thought content: Normal thought content present Insight: Good insight present (Psych) Judgement: Good judgement present (Psych) Results Labs 11/26/23 05:59 11/28/23 05:12 Labs: Abnormal lab results 11/28/23 Range/Units 05:12 BUN 6 L (9-16) mg/dL AST 43 H (5-31) U/L ALT 132 H (0-31) U/L Alkaline Phosphatase 172 H (39-117) U/L Total Protein 5.7 L (6.5-8.0) g/dL Albumin 3.0 L (3.5-5.0) g/dL BMP 11/28/23 05:12 Sodium 141 Potassium 3.9 Chloride 105 Carbon Dioxide 26 BUN 6 L Creatinine 0.67 Calcium 8.4 Liver Function 11/28/23 Range/Units 05:12 Total Bilirubin 0.6 (0.0-1.0) mg/dL AST 43 H (5-31) U/L ALT 132 H (0-31) U/L Alkaline Phosphatase 172 H (39-117) U/L Albumin 3.0 L (3.5-5.0) g/dL Urine 11/25/23 Range/Units 23:45 Urine Color Dark Yellow Urine Appearance Cloudy Urine pH 7.0 (5.0-9.0) Ur Specific [place] 1.020 (1.005-1.025) Urine Protein Negative (Neg-Trace) mg/dL Urine Glucose (UA) Negative (Negative) mg/dL Urine Test NEGATIVE (NEGATIVE) All other labs normal. Imaging Abdominal ultrasound report/results: report reviewed Assessment and Plan (1) Pancreatitis: Status: Acute Plan 33-year-old female with acute pancreatitis probably secondary to gallstones. She presented with elevated LFTs as well as very elevated lipase which over the last 3 days of conservative care has decreased to almost normal for her lipase her LFTs are considerably improved. At this point she is less tender and with her lipase improved will consider carrying out laparoscopic cholecystectomy. We will put her on the add on for tomorrow. She can continue to do liquid diet today and see how she feels with that. Eventually she does need to do something about her weight and we talked a little bit about that. She is interested in doing something a little more significant to improve her health. Procedures Date of Service Date of Service: 11/28/23
[2023-11-28 19:12] VITALS: BP 131/60; PULSE 69; RESP 18; TEMP 36.2; O2SAT 98
[2023-11-29] VITALS (12 sets, daily range): BP systolic 107–140; BP diastolic 62–82; PULSE 80–103; RESP 12–19; TEMP 36.1–37.5; O2SAT 94–99
[2023-11-29 06:15] LABS: Alanine Aminotransferase 97 U/L (0-31); Alkaline Phosphatase 172 U/L (39-117); Anion Gap 11 (12-20); Aspartate Amino Transferase 28 U/L (5-31); Bilirubin Total 0.6 mg/dL (0.0-1.0); Blood Urea Nitrogen 5 mg/dL (9-16); Calcium 8.2 mg/dL (8.4-10.2); Carbon Dioxide 29 mmol/L (22-29); Chloride 107 mmol/L (96-108); Creatinine Clr Calc Pharmacy 190.7; Estimated Glomerular Filt Rate > 60; Glucose Random 94 mg/dL (60-115); Potassium 3.8 mmol/L (3.3-5.1); Sodium 143 mmol/L (135-145); Total Protein 5.7 g/dL (6.5-8.0)
--- NOTE | 2023-11-29 08:58 | HO.ANESPROP2 ---
[facility] Active Problems Active Problems: All Active Problems (Updated 11/26/23 @ 16:21 by Mumtaz Isbell MD) Elevated LFTs (Acute) Pancreatitis (Acute) Past Medical History Medical History (Updated 11/29/23 @ 09:36 by Lacie Bonilla RN) No known health problems Patient : No Family History Family history of problems with anesthesia: No Surgical History Surgical History (Updated 11/29/23 @ 09:36 by Lacie Bonilla RN) No history of previous surgery History of Problems with Anesthesia: No Social History Social History Household Members: None Housing: Condominium Do you presently have visiting nurse or other home services: No Patient Tobacco Use Status: Never used Tobacco Second Hand Smoke Exposure: No service: No Meds Allergies Allergy/AdvReac Type Severity Reaction Status Date / Time No Known Allergies Allergy Verified 11/25/23 23:23 Active Medications: Current Medications Acetaminophen (Acetaminophen 325 Mg Tablet) 650 mg PO Q6H PRN PRN Reason: Pain, Moderate(Pain Scale 4-6) Last Admin: 11/28/23 12:20 Dose: 650 mg Lactated Ringer's (Lr) 1,000 mls @ 80 mls/hr IVCONT .[id number] [facility] Last Admin: 11/29/23 03:17 Dose: Not Given Morphine Sulfate (Morphine Sulfate 2 Mg/Ml Cartridge) 2 mg IVPUSH Q4H PRN; Protocol PRN Reason: Pain, Moderate(Pain Scale 4-6) Last Admin: 11/27/23 21:38 Dose: 2 mg Ondansetron HCl (Ondansetron Hcl 4 Mg/2 Ml Vial) 4 mg IVPUSH Q8H PRN PRN Reason: Nausea and Vomiting Last Admin: 11/27/23 21:38 Dose: 4 mg Pantoprazole Sodium (Pantoprazole Sodium 40 Mg/10 Ml Vial) 40 mg IVPUSH DAILY [facility] Last Admin: 11/28/23 08:23 Dose: 40 mg Sodium Chloride (0.9 % Sodium Chloride Flush 3 Ml Syringe) 3 ml IVFLUSH QSHIFT [facility] Last Admin: 11/29/23 07:12 Dose: Not Given Home Medications Medication Instructions Recorded Confirmed Last Taken Type ibuprofen 600 mg tablet 600 mg PO DAILY PRN Pain 11/26/23 11/26/23 Unknown History Exam Height,Weight and Vital Signs: Height 5 ft 5 in Weight 154.54 kg Last Vital Signs Temp 97 F 11/29/23 07:36 Pulse 80 11/29/23 07:36 Resp 18 11/29/23 07:36 BP 132/80 11/29/23 07:36 Pulse Ox 95 11/29/23 07:36 O2 Del Method Room Air 11/29/23 07:36 Pertinent Lab Results Pertinent Lab Results: Laboratory Tests 11/25/23 11/26/23 11/26/23 23:45 00:33 01:27 WBC 9.7 RBC 4.94 Hgb 13.9 Hct 42.3 MCV 85.6 MCH 28.1 MCHC 32.9 RDW 12.8 Plt Count 232 MPV 10.2 Immature Gran % (Auto) 0.4 Neut % (Auto) 77.5 H Lymph % (Auto) 15.2 L Gage % (Auto) 6.3 Eos % (Auto) 0.3 Baso % (Auto) 0.3 Lymph # (Auto) 1.5 Gage # (Auto) 0.6 Eos # (Auto) 0.0 Baso # (Auto) 0.0 Abs Immat Gran (auto) 0.04 H Absolute Neuts (auto) 7.5 Absolute Nucleated RBC 0.000 Nucleated RBC % (auto) 0.0 Hold Purple Top Sodium 142 Potassium 3.8 Chloride 104 Carbon Dioxide 28 Anion Gap 14 BUN 18 H Creatinine 0.71 Estim Creat Clear Calc 169.2 Estimated GFR > 60 Random Glucose 112 Calcium 9.2 Total Bilirubin 1.6 H Direct Bilirubin 1.1 H AST 442 H ALT 318 H Alkaline Phosphatase 239 H Total Protein 7.3 Albumin 3.9 Triglycerides 65 Lipase > 3000 H Urine Color Dark Yellow Urine Appearance Cloudy Urine pH 7.0 Ur Specific [place] 1.020 Urine Protein Negative Urine Glucose (UA) Negative Urine Ketones Negative Urine Blood Negative Urine Nitrite Negative Ur Leukocyte Esterase Small (1+) H Urine RBC 0-2 Urine WBC 6-10 H Ur Squamous Epith Cells 11-20 Urine Bacteria 2+ Hyaline Casts 0-2 Urine Test NEGATIVE 11/26/23 11/26/23 11/27/23 05:59 16:23 05:06 WBC 9.8 RBC 4.55 Hgb 13.0 Hct 39.8 MCV 87.5 MCH 28.6 MCHC 32.7 RDW 12.7 Plt Count 222 MPV 10.0 Immature Gran % (Auto) 0.5 H Neut % (Auto) 87.6 H Lymph % (Auto) 9.6 L Gage % (Auto) 2.1 Eos % (Auto) 0.0 Baso % (Auto) 0.2 Lymph # (Auto) 0.9 L Gage # (Auto) 0.2 Eos # (Auto) 0.0 Baso # (Auto) 0.0 Abs Immat Gran (auto) 0.05 H Absolute Neuts (auto) 8.6 H Absolute Nucleated RBC 0.000 Nucleated RBC % (auto) 0.0 Hold Purple Top SEE NOTE Sodium 141 Potassium 4.5 Chloride 107 Carbon Dioxide 27 Anion Gap 12 BUN 16 Creatinine 0.68 Estim Creat Clear Calc 176.6 Estimated GFR > 60 Random Glucose 117 H Calcium 8.7 Total Bilirubin 1.8 H 1.1 H Direct Bilirubin 0.6 H AST 379 H 213 H ALT 343 H 286 H Alkaline Phosphatase 247 H 240 H Total Protein 6.5 6.1 L Albumin 3.6 3.4 L Triglycerides Lipase 1200 H 431 H Urine Color Urine Appearance Urine pH Ur Specific [place] Urine Protein Urine Glucose (UA) Urine Ketones Urine Blood Urine Nitrite Ur Leukocyte Esterase Urine RBC Urine WBC Ur Squamous Epith Cells Urine Bacteria Hyaline Casts Urine Test 11/28/23 11/29/23 05:12 05:19 WBC RBC Hgb Hct MCV MCH MCHC RDW Plt Count MPV Immature Gran % (Auto) Neut % (Auto) Lymph % (Auto) Gage % (Auto) Eos % (Auto) Baso % (Auto) Lymph # (Auto) Gage # (Auto) Eos # (Auto) Baso # (Auto) Abs Immat Gran (auto) Absolute Neuts (auto) Absolute Nucleated RBC Nucleated RBC % (auto) Hold Purple Top SEE NOTE Sodium 141 143 Potassium 3.9 3.8 Chloride 105 107 Carbon Dioxide 26 29 Anion Gap 14 11 L BUN 6 L 5 L Creatinine 0.67 0.63 Estim Creat Clear Calc 179.3 190.7 Estimated GFR > 60 > 60 Random Glucose 88 94 Calcium 8.4 8.2 L Total Bilirubin 0.6 0.6 Direct Bilirubin AST 43 H 28 ALT 132 H 97 H Alkaline Phosphatase 172 H 172 H Total Protein 5.7 L 5.7 L Albumin 3.0 L 3.0 L Triglycerides Lipase 63 Urine Color Urine Appearance Urine pH Ur Specific [place] Urine Protein Urine Glucose (UA) Urine Ketones Urine Blood Urine Nitrite Ur Leukocyte Esterase Urine RBC Urine WBC Ur Squamous Epith Cells Urine Bacteria Hyaline Casts Urine Test Airway Mallampati Class: II TM Dist: <=3cm Neck ROM: Full Loose/Missing/Broken Teeth: No Heart: rrr Lungs: cta b/l Assessment and Plan Assessment Anesthesia Assessment: Anesthesia Plan Discussed and Chart Reviewed Final Anesthetic Review Family History of Problems with Anesthesia: No History of Problems with Anesthesia: No NPO: Yes ASA Class: III Final Preanesthetic Review: No Changes in Pt Med Stat, Consent Obtained/Reviewed and Anes Risks/Benef Reviewed Patient Risk: Intermediate Procedure Risk: Intermediate Anesthetic Plan Anesthetic Plan: GA Disposition: Standard PACU
[2023-11-29] MEDS: Pantoprazole Sodium 40 MG/10 ML VIAL IVPUSH (08:59)
[2023-11-29] MEDS: Lactated Ringers 1,000 ML 80 ML IVCONT ×2 (09:42→16:22)
--- NOTE | 2023-11-29 10:37 | P.PNIM_ITS ---
Subjective Subjective Date of Service: 11/29/23 Interval History: abd pain Review of Systems abd pain somewhat improved significantly no fevers Physical Exam 2 Vital Signs: Vital Signs: Last Vital Signs Temp 98.4 F 11/29/23 09:37 Pulse 91 11/29/23 09:37 Resp 16 11/29/23 09:37 BP 124/82 11/29/23 09:37 Pulse Ox 96 11/29/23 09:37 O2 Del Method Room Air 11/29/23 09:37 BMI result Body Mass Index 56.7 Appearance: Alert.? Oriented X3.? not in distress.?. cvs: rrr, [id number] , no murmur res: clear to auscultation ,no rhonchii or wheezing abd: no rebound or guarding ,nt , bs present. ext pulses present , no cyanosis . neuro: axo3 , nonfocal. Objective Data Active Medications Acetaminophen (Acetaminophen 325 Mg Tablet) 650 mg PO Q6H PRN PRN Reason: Pain, Moderate(Pain Scale 4-6) Last Admin: 11/28/23 12:20 Dose: 650 mg Documented By: LUIS Fentanyl (Fentanyl Citrate/Pf 100 Mcg/2 Ml Vial) 25 mcg IVPUSH Q5M PRN; Protocol PRN Reason: Pain, Moderate(Pain Scale 4-6) Hydromorphone HCl (Hydromorphone Hcl 0.5 Mg/0.5 Ml Syringe) 0.5 mg IVPUSH Q5M PRN; Protocol PRN Reason: Pain, Severe (Pain Scale 7-10) Lactated Ringer's (Lr) 1,000 mls @ 80 mls/hr IVCONT .[id number] [facility] Last Admin: 11/29/23 03:17 Dose: Not Given Documented By: SILVIA Non-Admin Reason: IV Running Lactated Ringer's (Lr) 1,000 mls @ 80 mls/hr IVCONT .[id number] [facility] Last Admin: 11/29/23 09:42 Dose: 80 mls/hr Documented By: BULMARO Morphine Sulfate (Morphine Sulfate 2 Mg/Ml Cartridge) 2 mg IVPUSH Q4H PRN; Protocol PRN Reason: Pain, Moderate(Pain Scale 4-6) Last Admin: 11/27/23 21:38 Dose: 2 mg Documented By: KYA Ondansetron HCl (Ondansetron Hcl 4 Mg/2 Ml Vial) 4 mg IVPUSH Q8H PRN PRN Reason: Nausea and Vomiting Last Admin: 11/27/23 21:38 Dose: 4 mg Documented By: KYA Pantoprazole Sodium (Pantoprazole Sodium 40 Mg/10 Ml Vial) 40 mg IVPUSH DAILY [facility] Last Admin: 11/29/23 08:59 Dose: 40 mg Documented By: RADHA Sodium Chloride (0.9 % Sodium Chloride Flush 3 Ml Syringe) 3 ml IVFLUSH QSHIFT [facility] Last Admin: 11/29/23 07:12 Dose: Not Given Documented By: RADHA Non-Admin Reason: IV Running Labs 11/26/23 05:59 11/29/23 05:19 Labs: Laboratory Results - last 24 hr 11/29/23 05:19 Anion Gap 11 L Estim Creat Clear Calc 190.7 Estimated GFR > 60 Random Glucose 94 Calcium 8.2 L Total Bilirubin 0.6 AST 28 ALT 97 H Alkaline Phosphatase 172 H Total Protein 5.7 L Albumin 3.0 L Assessment and Plan (1) Elevated LFTs: Status: Acute (2) Pancreatitis: Status: Acute Assessment and Plan: 33 years old woman admitted with: Acute pancreatitis, secondary to choledocholithiasis? lft's,lipase improving abd similar abd ct scan: Moderate peripancreatic infiltration/fluid consistent with acute pancreatitis.Small amount of free fluid within the pelvis. abd us:Cholelithiasis with sensitivity on compression but no other evidence of cholecystitis. continue IV fluids,Pain control with Dilaudid , Antiemetic . Gifollowing ,surgery eval for possible lap césar. morbid Obesity. BMI 56.7 kg/m2. encouraged to lose weight,cut down calories Dvt prophylaxis: Heparin subcut ongoing hospitalization need for 48-72 hrs for acute pancreatitis treatment with IV fluids and IV pain medications. She also will need evaluation with abdominal ultrasound and assessment by subspecialty. Quality Stroke Does the patient have a stroke diagnosis?: No VTE Prior VTE?: No VTE Risk Level:: Medical - moderate - high VTE Device Contraindication: N/A - Device Ordered VTE Drug Contraindication: Treatment Not Indicated
--- NOTE | 2023-11-29 13:02 | P.CDIM_ITS ---
PROVIDER RESPONSE TEXT: To clarify, the appropriate diagnosis supported by the clinical indicators: Obesity Due to excess calories QUERY TEXT: PHYSICIAN'S DOCUMENTATION REQUEST Date of Query: 11/29/2023 09:30 AM EST Patient Name: Emma Almanza Admit Date: 11/26/2023 Dear Melissa Holley, A review of the medical record indicates additional documentation may be needed. Please review below and update the documentation accordingly. Clinical Indicators: Height: ( ) 5'5 Weight: ( ) 154.54 kg BMI: ( ) 56.7 Other Clinical Notes Supporting Significance of the BMI: Per Nutritional Risk Assessment 11/26/23: on therapeutic diet If possible, please provide an associated diagnosis related to the abnormal BMI, such as: Overweight Obesity Due to excess calories Obesity Drug induced Obesity Due to other cause Specify the other cause Severe or Morbid Obesity With alveolar hypoventilation Severe or Morbid Obesity Without alveolar hypoventilation BMI is not significant Other (explain) Clinically unable to determine (explain) Thank you, Rina Mcdaniel RN Use of terms such as suspected, likely, concern for, or probable (associated with a specific diagnosi s that is being evaluated, monitored, or treated as if it exists) are acceptable and can be coded in the inpatient se tting, when documented at the time of discharge. Please use your independent medical judgment in providing your response. THIS QUERY IS PART OF THE PERMANENT MEDICAL RECORD
--- NOTE | 2023-11-29 13:15 | P.OP_ITS ---
Operative Note Operative Note Date of Service: 11/29/23 Narrative: Preop diagnosis--gallstone pancreatitis cholelithiasis possible choledocholithiasis Postop diagnosis-- same Procedure done-- laparoscopic cholecystectomy with intraop cholangiogram Surgeon--Marta Runway Model-- Elvira Ny Anesthesia -- GE TA History--patient is a 33-year-old female presents with abdominal pain nausea vomiting and was noted to have gallstone pancreatitis. Her pancreatitis has resolved and ultrasound showed gallstones in her gallbladder little dilated duct at 0.6 cm. As a result she comes in now for laparoscopic cholecystectomy and cholangiogram Findings-- gallbladder with some adhesions and some small stone material in the gallbladder. Cholangiogram shows good fillings of the radicles and the common bile duct but not great filling of the duodenal. There is some contrast goes th rough into the duodenal but this is lagging. Glucagon was given and despite this contrast was not emptying well into the duodenal. All this is worrisome for common bile duct stone. Procedure-- Patient was brought to the operative room under Anesthesia guidance was intubated. She had compression stockings placed before and DrZoraida Received preoperative antibiotics. Her abdomen was prepped and draped in standard surgical fashion. An infraumbilical incision was created after numbing up the area with the corpus and Marcaine with epinephrine. Dissection was carried down to the anterior abdominal wall fascia which was grasped with Arlyn's and transected 0 Vicryl pursestring suture placed and the peritoneum popped in with finger dissection. The De Leon trocar was introduced and pneumoperitoneum was established at 15 mmHg pressure the 5 mm 0 camera was introduced and the gallbladder was not well visualized due to the significant amount of fat in a large liver hanging over it. Three 5 mm ports were then placed under direct visualization using local 1 in the epigastric area and 2 in the right upper quadrant area. The gallbladder was then identified and retracted superiorly and laterally. Some adhesions were taken down bluntly and then the cystic triangle was dissected out. The cystic duct and cystic artery was dissected out such that they were the only structures entering into the gallbladder and this facilitated the critical view. It was decided to do a cholangiogram at this point in time and so a small ductotomy was made in the cystic duct and the cholangiogram catheter introduced through the cystic duct the balloon inflated and then the duct irrigated with saline. This did not reveal any significant leak and so the cholangiogram was carried out with the contrast. This showed the distal common bile duct filling and some contrast going into the duodenal. Patient was then positioned down little had up and the hepatic radicals filled well. A true common bile duct stone or filling defect was not visualized however the injection of contrast was difficult met with resistance and there was not great flow and emptying of the bile tree into the duodenal. Glucagon was given to relax the sphincter of Oddi in the hopes that this would allow for passage of a stone or any distal obstruction and emptying of the contrast but this did not help very much. At this point the cholangiocatheter was removed and the rest of the case completed. The cystic duct was then clipped 3 clips down and 1 up and then transected completely. The cystic artery was behind and had a branched went up to the anterior and posterior aspect and this was clipped together. The gallbladder was then removed intact from the liver bed with hook cautery placed in the Endo bag and removed from the infraumbilical port site. Pneumoperitoneum was then reestablished and the area examined and it was noted that cystic duct clips and cystic artery clips all looked fine and intact the liver bed was dry no bleeding. Will suction irrigation was carried out and then the ports removed under direct visualization. The pursestring suture was approximated at the infraumbilical area and then another figure of 8 0 Vicryl stitch used to completely close off the infraumbilical opening of the muscle and fascia. Subcuticular sutures were then placed and dry dressings with Tegaderm was placed put. At the end of the case all sponge instrument needle counts were correct estimated blood loss was minimal specimen sent was the gallbladder patient was extubated returned stable to the recovery room. Plan to discuss with GI team possibility to carry out postop ERCP.
[2023-11-29] MEDS: HYDROmorphone HCl 0.5 MG/0.5 ML SYRINGE IVPUSH (13:20)
--- NOTE | 2023-11-29 13:26 | MHC.CM.PN ---
Per MD rounds no dc today. Patient scheduled for a Lap Jelly today.Discharge is anticipated tomorrow. DP home self care. Patients Mother will provide transportation home.
[2023-11-29] MEDS: Acetaminophen 1,000 MG/100 ML PIGGYBACK 400 MG IV (13:46)
[2023-11-29] MEDS: oxyCODONE HCl Immed Release 5 MG TABLET 10 MG PO ×2 (15:00→19:14)
[2023-11-29] MEDS: Acetaminophen 325 MG TABLET 650 MG PO (19:14)
[2023-11-30] MEDS: ondansetron HCL 4 MG/2 ML VIAL IVPUSH ×2 (03:30→14:36)
[2023-11-30] MEDS: oxyCODONE HCl Immed Release 5 MG TABLET 10 MG PO (03:31)
[2023-11-30] MEDS: Lactated Ringers 1,000 ML 80 ML IVCONT ×2 (03:34→14:36)
[2023-11-30 03:42] VITALS: BP 163/82; PULSE 74; RESP 18; TEMP 36.6; O2SAT 98
[2023-11-30 06:24] VITALS: RESP 18
[2023-11-30] MEDS: Morphine Sulfate 4 MG/ML CARTRIDGE IVPUSH (06:24)
--- NOTE | 2023-11-30 06:38 | PC.NURSE ---
0615-PATIENT AWAKENED AND STATED TO HAVE 7/10 ABDOMINAL PAIN, NPO STATUS, FEELING DRY HEAVES AND VOMITED 50ML BILE LIQUID. MEDICATED WITH MORPHINE FOR PAIN WITH EFFECT PENDING. REINFORCED NPO AND WATER WITH PO MEDS ONLY. CONT TO MONITOR
[2023-11-30 06:55] VITALS: RESP 18
[2023-11-30 07:40] VITALS: BP 138/72; PULSE 69; RESP 18; TEMP 36.2; O2SAT 97
[2023-11-30 07:56] LABS: Alanine Aminotransferase 91 U/L (0-31); Albumin Level 3.5 g/dL (3.5-5.0); Alkaline Phosphatase 206 U/L (39-117); Aspartate Amino Transferase 32 U/L (5-31); Bilirubin Direct 0.3 mg/dL (0.0-0.5); Bilirubin Total 0.5 mg/dL (0.0-1.0); Total Protein 6.9 g/dL (6.5-8.0)
--- NOTE | 2023-11-30 08:03 | P.PNGS_ITS ---
Subjective Subjective Date of Service: 11/30/23 <Elvira Ny PA-C - Last Filed: 11/30/23 09:06> 11/30/23 <Jonathan Estrada MD - Last Filed: 11/30/23 11:02> Interval history: Had some nausea and vomiting last night after receiving morphine. Was able to tolerate some jello last night. Was OOB and ambulating yesterday but developed severe RUQ and right shoulder pain. Otherwise having some mild incisional pain at the umbilicus. <Elvira Ny PA-C - Last Filed: 11/30/23 09:06> Physical Exam 2 Vital Signs: Vital Signs: Last Vital Signs Temp 97.2 F 11/30/23 07:40 Pulse 69 11/30/23 07:40 Resp 18 11/30/23 07:40 BP 138/72 11/30/23 07:40 Pulse Ox 97 11/30/23 07:40 O2 Del Method Room Air 11/30/23 07:40 O2 Flow Rate 2 11/29/23 14:18 BMI result Body Mass Index 56.7 <Elvira Ny PA-C - Last Filed: 11/30/23 09:06> Const: General: comfortable, no acute distress and alert <CHANDA Rivas Last Filed: 11/30/23 09:06> Orientation/consciousness: patient oriented x3 <CHANDA Rivas Last Filed: 11/30/23 09:06> Resp: Effort & Inspection: normal respiratory effort <CHANDA Rivas Last Filed: 11/30/23 09:06> GI: Inspection: No distended and Yes incision (dressings intact) <CHANDA Rivas Last Filed: 11/30/23 09:06> Palpation (GI): Soft to palpation, Tenderness to palpation present (GI) (mild incisional), no guarding and not rigid <CHANDA Rivas Last Filed: 11/30/23 09:06> Percussion: Yes normal to percussion <CHANDA Rivas Last Filed: 11/30/23 09:06> Skin: General skin exam: no rashes or lesions noted and no jaundice < Elvira Ny PA-C - Last Filed: 11/30/23 09:06> Neuro: General: patient oriented x3 <CHANDA Rivas Last Filed: 11/30/23 09:06> Objective Data Active Medications Acetaminophen (Acetaminophen 325 Mg Tablet) 650 mg PO Q6H PRN PRN Reason: Pain, Moderate(Pain Scale 4-6) Last Admin: 11/29/23 19:14 Dose: 650 mg Documented By: LIVIER Lactated Ringer's (Lr) 1,000 mls @ 80 mls/hr IVCONT .[id number] [facility] Last Admin: 11/30/23 03:34 Dose: 80 mls/hr Documented By: EMANUEL Morphine Sulfate (Morphine Sulfate 4 Mg/Ml Cartridge) 4 mg IVPUSH Q4H PRN; Protocol PRN Reason: Pain, Severe (Pain Scale 7-10) Last Admin: 11/30/23 06:24 Dose: 4 mg Documented By: EMANUEL Ondansetron HCl (Ondansetron Hcl 4 Mg/2 Ml Vial) 4 mg IVPUSH Q8H PRN PRN Reason: Nausea and Vomiting Last Admin: 11/30/23 03:30 Dose: 4 mg Documented By: EMANUEL Oxycodone HCl (Oxycodone Hcl Immed Release 5 Mg Tablet) 5 mg PO Q4H PRN PRN Reason: Pain, Moderate(Pain Scale 4-6) Oxycodone HCl (Oxycodone Hcl Immed Release 5 Mg Tablet) 10 mg PO Q4H PRN PRN Reason: Pain, Severe (Pain Scale 7-10) Last Admin: 11/30/23 03:31 Dose: 10 mg Documented By: EMANUEL Pantoprazole Sodium (Pantoprazole Sodium 40 Mg/10 Ml Vial) 40 mg IVPUSH DAILY [facility] Last Admin: 11/29/23 08:59 Dose: 40 mg Documented By: RADHA Sodium Chloride (0.9 % Sodium Chloride Flush 3 Ml Syringe) 3 ml IVFLUSH QSHIFT [facility] Last Admin: 11/30/23 07:15 Dose: Not Given Documented By: FREDDIE Non-Admin Reason: IV Running <CHANDA Rivas Filed: 11/30/23 09:06> Labs CBC & Chem 7: 11/26/23 05:59 11/29/23 05:19 <Elvira Ny PA-C - Last Filed: 11/30/23 09:06> Labs: Laboratory Results - last 24 hr 11/30/23 06:58 Hold Purple Top SEE NOTE Total Bilirubin 0.5 Direct Bilirubin 0.3 AST 32 H ALT 91 H Alkaline Phosphatase 206 H Total Protein 6.9 Albumin 3.5 <Elvira Ny PA-C - Last Filed: 11/30/23 09:06> Procedures Date of Service Date of Service: 11/30/23 <Elvira Ny PA-C - Last Filed: 11/30/23 09:06> 11/30/23 <Jonathan Estrada MD - Last Filed: 11/30/23 11:02> Progress Note: A&P Assessment and plan (1) Pancreatitis: Status: Acute <Elvira Ny PA-C - Last Filed: 11/30/23 09:06> (2) Elevated LFTs: Status: Acute <Elvira Ny PA-C - Last Filed: 11/30/23 09:06> (3) S/P laparoscopic cholecystectomy: Status: Acute <Elvira Ny PA-C - Last Filed: 11/30/23 09:06> Assessment and Plan: sore on incisions looks well abd soft LFTS low diet as tolerated as per GI - no ERCP planned at this time seen and examined independently <Jonathan Estrada MD - Last Filed: 11/30/23 11:02> Assessment and Plan: POD #1 s/p lap césar for gallstone pancreatitis. ?Filling defect on IOC yesterday. LFTs this morning reviewed and stable. Per Dr. De Leon of GI rec- advance diet and see if tolerated, repeat LFTs in AM. If unable to tolerate diet or jump in LFTs, plan for ERCP to evaluate. VSS. Abd benign with appropriate post op tenderness, dressings intact. Doing well from surgical standpoint. < Elvira Ny PA-C - Last Filed: 11/30/23 09:06> Time Spent With Patient Time: Total time managing care of this patient today ____ minutes. <Elvira Ny PA-C - Last Filed: 11/30/23 09:06> Quality Stroke Does the patient have a stroke diagnosis?: No <Elvira Ny PA-C - Last Filed: 11/30/23 09:06> VTE Prior VTE?: No <Elvira Ny PA-C - Last Filed: 11/30/23 09:06> VTE Risk Level:: Medical - moderate - high <Elvira Ny PA-C - Last Filed: 11/30/23 09:06> VTE Device Contraindication: N/A - Device Ordered <Elvira Ny PA-C - Last Filed: 11/30/23 09:06> VTE Drug Contraindication: Treatment Not Indicated <Elvira Ny PA-C - Last Filed: 11/30/23 09:06>
[2023-11-30] MEDS: Pantoprazole Sodium 40 MG/10 ML VIAL IVPUSH (08:26)
[2023-11-30] MEDS: Acetaminophen 1,000 MG/100 ML PIGGYBACK 400 MG IV (10:20)
--- NOTE | 2023-11-30 13:01 | HO.PM.IMPN ---
Subjective Subjective Date of Service: 11/30/23 Interval History: s/p CCy yesterday, having n/v this morning and pain Physical Exam Vital Signs: Vital Signs: Last Vital Signs Temp 97.2 F 11/30/23 07:40 Pulse 69 11/30/23 07:40 Resp 18 11/30/23 07:40 BP 138/72 11/30/23 07:40 Pulse Ox 97 11/30/23 07:40 O2 Del Method Room Air 11/30/23 07:40 O2 Flow Rate 2 11/29/23 14:18 BMI result Body Mass Index 56.7 Const: Other: General: AO X 3, no acute distress Resp: CTA bilateral CVS: S1,S2,RRR GI: +BS, pain around incisions Skin: No rash Neuro: motor grossly intact Psych: appropriate affect Objective Data Active Medications Acetaminophen (Acetaminophen 325 Mg Tablet) 650 mg PO Q6H PRN PRN Reason: Pain, Moderate(Pain Scale 4-6) Last Admin: 11/29/23 19:14 Dose: 650 mg Documented By: LIVIER Hydromorphone HCl (Hydromorphone Hcl 0.5 Mg/0.5 Ml Syringe) 0.5 mg IVPUSH Q3H PRN; Protocol PRN Reason: Pain, Severe (Pain Scale 7-10) Lactated Ringer's (Lr) 1,000 mls @ 80 mls/hr IVCONT .[id number] GEORGETTE Last Admin: 11/30/23 03:34 Dose: 80 mls/hr Documented By: EMANUEL Ketorolac Tromethamine (Ketorolac Tromethamine 30 Mg/Ml Vial) 30 mg IVPUSH Q6H PRN PRN Reason: abdominal pain Ondansetron HCl (Ondansetron Hcl 4 Mg/2 Ml Vial) 4 mg IVPUSH Q8H PRN PRN Reason: Nausea and Vomiting Last Admin: 11/30/23 03:30 Dose: 4 mg Documented By: EMANUEL Oxycodone HCl (Oxycodone Hcl Immed Release 5 Mg Tablet) 5 mg PO Q4H PRN PRN Reason: Pain, Moderate(Pain Scale 4-6) Oxycodone HCl (Oxycodone Hcl Immed Release 5 Mg Tablet) 10 mg PO Q4H PRN PRN Reason: Pain, Severe (Pain Scale 7-10) Last Admin: 11/30/23 03:31 Dose: 10 mg Documented By: EMANUEL Pantoprazole Sodium (Pantoprazole Sodium 40 Mg/10 Ml Vial) 40 mg IVPUSH DAILY [facility] Last Admin: 11/30/23 08:26 Dose: 40 mg Documented By: FREDDIE Sodium Chloride (0.9 % Sodium Chloride Flush 3 Ml Syringe) 3 ml IVFLUSH QSHIFT [facility] Last Admin: 11/30/23 07:15 Dose: Not Given Documented By: FREDDIE Non-Admin Reason: IV Running Labs 11/26/23 05:59 11/29/23 05:19 Labs: Laboratory Results - last 24 hr 11/30/23 06:58 Hold Purple Top SEE NOTE Total Bilirubin 0.5 Direct Bilirubin 0.3 AST 32 H ALT 91 H Alkaline Phosphatase 206 H Total Protein 6.9 Albumin 3.5 Assessment and Plan (1) Elevated LFTs: Status: Acute (2) Pancreatitis: Status: Acute Assessment and Plan: 33 years old woman admitted with: Acute gallstone pancreatitis, choledocholithiasis? s/p CCY on 11/29 and tolerate liquid diet but this AM, N/V and pain. LFTs trending down ?feeling defect on IOC, GI recommends advancing diet and monotoring LFTs morbid Obesity. BMI 56.7 kg/m2. encouraged to lose weight,cut down calories Dvt prophylaxis: Heparin subcut need for inpt: post op pain, requiring IV narc, n/v and diet been advanced slowly Quality Stroke Does the patient have a stroke diagnosis?: No VTE Prior VTE?: No VTE Risk Level:: Medical - moderate - high VTE Device Contraindication: N/A - Device Ordered VTE Drug Contraindication: Treatment Not Indicated
--- NOTE | 2023-11-30 13:22 | HO.POSTANES ---
Post Anesthesia Evaluation Post Anesthesia Evaluation Date of Service: 11/30/23 Vital Signs: Vital Signs Temp Pulse Resp BP Pulse Ox O2 Del Method 11/30/23 07:40 97.2 F 69 18 138/72 97 Room Air 11/30/23 06:55 18 11/30/23 06:24 18 11/30/23 03:42 97.8 F 74 18 163/82 H 98 Room Air Anesthesia: General Endotracheal-GETA Mental Status: Awake Pain Control: Satisfactory Nausea/Vomiting: Mild Hydration: Adequate Anesthesia-Related Issues: No Anes. Related Issues
[2023-11-30 15:22] VITALS: BP 162/93; PULSE 83; RESP 18; TEMP 36.2; O2SAT 99
[2023-11-30] MEDS: Ketorolac Tromethamine 30 MG/ML VIAL IVPUSH (15:37)
--- NOTE | 2023-11-30 17:45 | PC.NURSE ---
Pt ambulating in jones several times throughout the day. States she passed some flatus. Tolerating po in small amounts and mostly fluids
[2023-11-30] MEDS: HYDROmorphone HCl 0.5 MG/0.5 ML SYRINGE IVPUSH ×2 (19:10→23:19)
[2023-11-30 19:42] VITALS: BP 168/85; PULSE 81; RESP 18; TEMP 36.3; O2SAT 100
--- NOTE | 2023-11-30 23:22 | PC.NURSE ---
Pt medicated per MAR for abd pain, Pt has 4 gauze dressing to abdomen, scant staining noted to mid upper and mid lower dressing. pt resting in bed, respirations even and unlabored, call corona within reach.
[2023-12-01 03:36] VITALS: BP 129/59; PULSE 84; RESP 16; TEMP 36; O2SAT 99
[2023-12-01] MEDS: Ketorolac Tromethamine 30 MG/ML VIAL IVPUSH ×2 (04:12→20:06)
[2023-12-01 06:00] LABS: Alanine Aminotransferase 64 U/L (0-31); Alkaline Phosphatase 153 U/L (39-117); Aspartate Amino Transferase 22 U/L (5-31); Bilirubin Direct 0.3 mg/dL (0.0-0.5); Bilirubin Total 0.5 mg/dL (0.0-1.0); Total Protein 5.8 g/dL (6.5-8.0)
[2023-12-01] MEDS: 0.9 % Sodium Chloride Flush 3 ML SYRINGE IVFLUSH ×2 (08:08→15:34)
[2023-12-01] MEDS: Pantoprazole Sodium 40 MG/10 ML VIAL IVPUSH (08:08)
--- NOTE | 2023-12-01 08:26 | P.PNGS_ITS ---
Subjective Subjective Date of Service: 12/02/23 Interval history: States she had some vomiting yesterday Feels much better No vomiting or nausea overnight Hungry Pain control much better Physical Exam 2 Vital Signs: Vital Signs: Last Vital Signs Temp 96.8 F 12/01/23 03:36 Pulse 84 12/01/23 03:36 Resp 16 12/01/23 03:36 BP 129/59 L 12/01/23 03:36 Pulse Ox 99 12/01/23 03:36 O2 Del Method Room Air 12/01/23 03:36 O2 Flow Rate 2 11/29/23 14:18 BMI result Body Mass Index 56.7 Const: General: comfortable and no acute distress Resp: Effort & Inspection: normal respiratory effort Cardio: Rate: regular rate GI: Other: All incisions clean and dry Palpation (GI): Soft to palpation, not firm and no guarding Objective Data Active Medications Acetaminophen (Acetaminophen 325 Mg Tablet) 650 mg PO Q6H PRN PRN Reason: Pain, Moderate(Pain Scale 4-6) Last Admin: 11/29/23 19:14 Dose: 650 mg Documented By: LIVIER Hydromorphone HCl (Hydromorphone Hcl 0.5 Mg/0.5 Ml Syringe) 0.5 mg IVPUSH Q3H PRN; Protocol PRN Reason: Pain, Severe (Pain Scale 7-10) Last Admin: 11/30/23 23:19 Dose: 0.5 mg Documented By: SILVIA Ketorolac Tromethamine (Ketorolac Tromethamine 30 Mg/Ml Vial) 30 mg IVPUSH Q6H PRN PRN Reason: abdominal pain Last Admin: 12/01/23 04:12 Dose: 30 mg Documented By: SILVIA Ondansetron HCl (Ondansetron Hcl 4 Mg/2 Ml Vial) 4 mg IVPUSH Q8H PRN PRN Reason: Nausea and Vomiting Last Admin: 11/30/23 14:36 Dose: 4 mg Documented By: FREDDIE Oxycodone HCl (Oxycodone Hcl Immed Release 5 Mg Tablet) 5 mg PO Q4H PRN PRN Reason: Pain, Moderate(Pain Scale 4-6) Oxycodone HCl (Oxycodone Hcl Immed Release 5 Mg Tablet) 10 mg PO Q4H PRN PRN Reason: Pain, Severe (Pain Scale 7-10) Last Admin: 11/30/23 03:31 Dose: 10 mg Documented By: EMANUEL Pantoprazole Sodium (Pantoprazole Sodium 40 Mg/10 Ml Vial) 40 mg IVPUSH DAILY [facility] Last Admin: 12/01/23 08:08 Dose: 40 mg Documented By: DOREENEMA Sodium Chloride (0.9 % Sodium Chloride Flush 3 Ml Syringe) 3 ml IVFLUSH QSHIFT [facility] Last Admin: 12/01/23 08:08 Dose: 3 ml Documented By: COTEMA Labs 11/26/23 05:59 11/29/23 05:19 Labs: Laboratory Results - last 24 hr 12/01/23 05:30 Hold Purple Top SEE NOTE Total Bilirubin 0.5 Direct Bilirubin 0.3 AST 22 ALT 64 H Alkaline Phosphatase 153 H Total Protein 5.8 L Albumin 3.0 L Procedures Date of Service Date of Service: 12/02/23 Progress Note: A&P Assessment and plan (1) S/P laparoscopic cholecystectomy: Status: Acute Assessment and Plan: Clinically looks well Bilirubin remains low Rest of LFTs trending down She had vomited yesterday again but feels much better today Off nausea or vomiting overnight Okay to restart diet, and advance as tolerated Time Spent With Patient Time: Total time managing care of this patient today ____ minutes. Quality Stroke Does the patient have a stroke diagnosis?: No VTE Prior VTE?: No VTE Risk Level:: Medical - moderate - high VTE Device Contraindication: N/A - Device Ordered VTE Drug Contraindication: Treatment Not Indicated
--- NOTE | 2023-12-01 09:54 | PM.DS ---
DS: Providers Provider Date of Service: 12/01/23 Date of admission: 11/26/23 05:21 Primary care physician: Paz Berrios DNP, RECONCILIATION SPECIALIST, N Consults: 11/26/23 05:33 Consult to Gastroenterology Routine Consulting Provider: Cheryl Burdick Reason for consultation: Pancreatitis, elevated LFTs Has provider been notified: No 11/26/23 16:37 Consult to General Surgery Routine Consulting Provider: [facility] General Surgeons Reason for consultation: cholelitasis ,pancreatitis Has provider been notified: No DS: Diagnosis Discharge Diagnosis (1) S/P laparoscopic cholecystectomy: Status: Acute DS: Summary Hospital Course Hospital Course: Chief Complaint: Abdominal pain Emma Almanza is a 33 years old woman with no significant past medical history presents to the emergency department complaining of right upper quadrant and epigastric pain that started last night associated with multiple events of bilious vomiting. She described the pain as colicky. Her last meal before the symptoms was assumed. She denies fever, chills, diarrhea or constipation. She did not report any acute urinary symptoms. She denies alcohol abuse (only drinks in occasions -last time she drank alcoholic beverage was 2 weeks ago), no tobacco smoking or illicit drug use. She denied any cardiopulmonary. She has no history of abdominal surgeries and has never been hospitalized. In the ED, she was found to have normal vital signs. Blood workup is remarkable elevated lipase, > 3000 as well as elevated AST, ALT, total bilirubin and alk-phos. There is no leukocytosis or anemia. ED tx: NS 2 L bolus, Zofran 4 mg IV and morphine 2 mg IV. hospital course: patient presented with abdominal pain and workup revealed gallstone pancreatitis, choledocholithiasis, with lipase level greater than 3000. Over the course of hospitalization LFTs trended down along with lipase and thus did not need ERCP and eventually underwent cholecystecomy. Lipase level is now normal, and LFTs continue to trend down, but patient noted to have persistent pain and unable to tolerate diet, therefore evaluated by Gastroenterology and underwent ERCP that showed bile leak from cystic duct underwent stent placement, a possible filling defect was noted a sphincterotomy was performed and a basket was used to sweep the duct but nothing was retrieved, cholangiogram did not reveal any filling defects but revealed the bile leak, post procedure diet was advanced and she is tolerating well recommend low-fat diet and advised weight loss. Time Attestation Discharge coordination time: Greater than 30 minutes Quality: Safe Use of Opioids Does Pt have an Active Cancer Diagnosis on the Problem List?: No Quality: Stroke Does the patient have a stroke diagnosis?: No Physical Exam Vital Signs: Vital Signs: Last Vital Signs Temp 96.8 F 12/01/23 03:36 Pulse 84 12/01/23 03:36 Resp 16 12/01/23 03:36 BP 129/59 L 12/01/23 03:36 Pulse Ox 99 12/01/23 03:36 O2 Del Method Room Air 12/01/23 03:36 O2 Flow Rate 2 11/29/23 14:18 BMI result Body Mass Index 56.7 General: AO X 3, no acute distress Resp: CTA bilateral CVS: S1,S2,RRR GI: +BS, NT, no distention Skin: No rash Neuro: motor grossly intact Psych: appropriate affect DS: Data Data Completed and Pending Completed studies during hospitalization [Text1]: Pending at discharge 11/29/23 12:43 Surgical [PTH] Routine Labs on day of discharge: Laboratory Results - last 24 hr 12/01/23 05:30 Hold Purple Top SEE NOTE Total Bilirubin 0.5 Direct Bilirubin 0.3 AST 22 ALT 64 H Alkaline Phosphatase 153 H Total Protein 5.8 L Albumin 3.0 L Discharge Plan Discharge Anticipated Discharge Date/Time: 12/01/23 09:52 Patient Disposition: Home, Self-Care Discharge Diagnosis: gallstone pancreatitis, choledocholithiasis, bile leak Referrals: Jonathan Estrada MD [Physician] - 2 Weeks Paz Berrios DNP, RECONCILIATION SPECIALIST, [employer] [Primary Care Provider] - 1 Week Discharge Medications: No Action No Known Home Meds Discharge Orders: Discharge Order (Routine); Ordered 12/04/23 Ordered By: Alexsander Bond Diet: Low fat, low cholesterol Activity on Discharge: No heavy lifting Stand Alone Forms: Patient Portal Discharge page Print Language: Portuguese Activity Restrictions/Additional Instructions: If the incision area is tender, you may apply an ice pack for short intervals (No more than 20 minutes on, followed by at least 20 minutes off). Do not apply heat. Do not use creams, lotions, or topical antibiotics. These can cause infection or allergic reaction. Ok to shower 24 hours after your surgery. You have steri strips (small white cloth strips) covering your incision- these will fall off ~1 week. Follow up in office with Dr. Estrada in 2 weeks. ([phone]) No heavy lifting (>10-20lbs) or strenuous activity! Call Your Doctor If: -Your temperature exceeds 101.5? F -You experience excessive pain or swelling -You have an unexpected reaction to medication -You have excessive bleeding -You experience continued vomiting/nausea -Your incision begins to separate -Your incision shows signs of infection such as increased redness, swelling, excessive pain, drainage (light blood or clear fluid is normal) or heat Care Plan Goals: full recovery from gallstone pancreatitis and gallbladder removal Health Concerns: gallstone pancreatitis choledocholithiasis Bile leak status post stent placement Plan of Treatment: Follow-up with Dr. De Leon from Gastroenterology in 8 weeks for removal of stent Assessment: see above Discharge Date/Time: 12/04/23 09:11
[2023-12-01] MEDS: Acetaminophen 325 MG TABLET 650 MG PO (10:58)
--- NOTE | 2023-12-01 12:15 | MHC.CM.PN ---
Patient is discharged today. She is s/p Lap Jelly. She is discharge to home self care. She has arranged for her mother to provide transport home.
[2023-12-01] MEDS: ondansetron HCL 4 MG/2 ML VIAL IVPUSH (14:43)
[2023-12-01 15:05] VITALS: BP 147/91; PULSE 90; RESP 20; TEMP 36.6; O2SAT 100
[2023-12-01] MEDS: HYDROmorphone HCl 0.5 MG/0.5 ML SYRINGE IVPUSH ×3 (15:32→23:24)
--- NOTE | 2023-12-01 15:44 | PC.NURSE ---
Pt ambulatory throughout the day. States she had a BM today. Tolerated bites of pancake and egg this morning at breakfast. Ate a muffin and applesauce at lunch but vomited afterwards. Zofran IV given, Dr Gusman notified. Pt medicated with IV dilaudid for pain with good effect
--- NOTE | 2023-12-01 17:19 | P.PNIM_ITS ---
Subjective Subjective Date of Service: 12/01/23 Interval History: s/p CCY, was going to be dsicharged but didn't tolerate diet with n/v Physical Exam 2 Vital Signs: Vital Signs: Last Vital Signs Temp 97.8 F 12/01/23 15:05 Pulse 90 12/01/23 15:05 Resp 20 12/01/23 15:05 BP 147/91 H 12/01/23 15:05 Pulse Ox 100 12/01/23 15:05 O2 Del Method Room Air 12/01/23 15:05 O2 Flow Rate 2 11/29/23 14:18 BMI result Body Mass Index 56.7 Const: Other: General: AO X 3, no acute distress Resp: CTA bilateral CVS: S1,S2,RRR GI: +BS, pain around incisions Skin: No rash Neuro: motor grossly intact Psych: appropriate affect Objective Data Active Medications Acetaminophen (Acetaminophen 325 Mg Tablet) 650 mg PO Q6H PRN PRN Reason: Pain, Moderate(Pain Scale 4-6) Last Admin: 12/01/23 10:58 Dose: 650 mg Documented By: AIYANA Hydromorphone HCl (Hydromorphone Hcl 0.5 Mg/0.5 Ml Syringe) 0.5 mg IVPUSH Q3H PRN; Protocol PRN Reason: Pain, Severe (Pain Scale 7-10) Last Admin: 12/01/23 15:32 Dose: 0.5 mg Documented By: FREDDIE Ketorolac Tromethamine (Ketorolac Tromethamine 30 Mg/Ml Vial) 30 mg IVPUSH Q6H PRN PRN Reason: abdominal pain Last Admin: 12/01/23 04:12 Dose: 30 mg Documented By: SILVIA Ondansetron HCl (Ondansetron Hcl 4 Mg/2 Ml Vial) 4 mg IVPUSH Q8H PRN PRN Reason: Nausea and Vomiting Last Admin: 12/01/23 14:43 Dose: 4 mg Documented By: FREDDIE Oxycodone HCl (Oxycodone Hcl Immed Release 5 Mg Tablet) 5 mg PO Q4H PRN PRN Reason: Pain, Moderate(Pain Scale 4-6) Oxycodone HCl (Oxycodone Hcl Immed Release 5 Mg Tablet) 10 mg PO Q4H PRN PRN Reason: Pain, Severe (Pain Scale 7-10) Last Admin: 11/30/23 03:31 Dose: 10 mg Documented By: EMANUEL Sodium Chloride (0.9 % Sodium Chloride Flush 3 Ml Syringe) 3 ml IVFLUSH QSHIFT [facility] Last Admin: 12/01/23 15:34 Dose: 3 ml Documented By: FREDDIE Labs 11/26/23 05:59 11/29/23 05:19 Labs: Laboratory Results - last 24 hr 12/01/23 05:30 Hold Purple Top SEE NOTE Total Bilirubin 0.5 Direct Bilirubin 0.3 AST 22 ALT 64 H Alkaline Phosphatase 153 H Total Protein 5.8 L Albumin 3.0 L Assessment and Plan (1) Elevated LFTs: Status: Acute (2) Pancreatitis: Status: Acute Assessment and Plan: 33 years old woman admitted with: Acute gallstone pancreatitis, choledocholithiasis? s/p CCY on 11/29 and tolerate liquid diet but this AM, N/V and pain. LFTs trending down ?feeling defect on IOC, GI recommends advancing diet and monotoring LFTs which continue to trend down -advance diet as kun, antiemetic and surgery to follow morbid Obesity. BMI 56.7 kg/m2. encouraged to lose weight,cut down calories Dvt prophylaxis: Heparin subcut need for inpt: post op pain, requiring IV narc, n/v and diet been advanced slowly Quality Stroke Does the patient have a stroke diagnosis?: No VTE Prior VTE?: No VTE Risk Level:: Medical - moderate - high VTE Device Contraindication: N/A - Device Ordered VTE Drug Contraindication: Treatment Not Indicated
[2023-12-01] MEDS: Dextrose 5 % and 0.45 % NaCl 1,000 ML 100 ML IVCONT (17:54)
[2023-12-01 18:46] VITALS: BP 154/79; PULSE 87; RESP 22; TEMP 37.2; O2SAT 99
[2023-12-02] VITALS (10 sets, daily range): BP systolic 96–142; BP diastolic 53–85; PULSE 58–89; RESP 16–20; TEMP 36.1–37.4; O2SAT 96–100
[2023-12-02] MEDS: HYDROmorphone HCl 0.5 MG/0.5 ML SYRINGE IVPUSH ×2 (04:19→11:00)
[2023-12-02] MEDS: Dextrose 5 % and 0.45 % NaCl 1,000 ML 100 ML IVCONT ×2 (04:21→18:20)
[2023-12-02] MEDS: Ketorolac Tromethamine 30 MG/ML VIAL IVPUSH ×2 (07:30→23:01)
[2023-12-02] MEDS: 0.9 % Sodium Chloride Flush 3 ML SYRINGE IVFLUSH (07:30)
--- NOTE | 2023-12-02 07:51 | P.PNGS_ITS ---
Subjective Subjective Date of Service: 12/02/23 Interval history: was to about to go home yesterday afternoon when she started to have nausea and vomitting says she has episodes of nausea still c/o abdl pain Physical Exam 2 Vital Signs: Vital Signs: Last Vital Signs Temp 97.1 F 12/02/23 07:32 Pulse 78 12/02/23 07:32 Resp 18 12/02/23 07:32 BP 139/83 12/02/23 07:32 Pulse Ox 96 12/02/23 07:32 O2 Del Method Room Air 12/02/23 07:32 O2 Flow Rate 2 11/29/23 14:18 BMI result Body Mass Index 56.7 Const: General: no acute distress Eyes: Other: anicteric sclerae Resp: Effort & Inspection: normal respiratory effort Cardio: Rate: regular rate GI: Other: some tenderness upper abd, umbilical areas, incisions clean and dry Palpation (GI): Soft to palpation Objective Data Active Medications Acetaminophen (Acetaminophen 325 Mg Tablet) 650 mg PO Q6H PRN PRN Reason: Pain, Moderate(Pain Scale 4-6) Last Admin: 12/01/23 10:58 Dose: 650 mg Documented By: AIYANA Hydromorphone HCl (Hydromorphone Hcl 0.5 Mg/0.5 Ml Syringe) 0.5 mg IVPUSH Q3H PRN; Protocol PRN Reason: Pain, Severe (Pain Scale 7-10) Last Admin: 12/02/23 04:19 Dose: 0.5 mg Documented By: KARLENE Dextrose/Sodium Chloride (D51/2ns) 1,000 mls @ 100 mls/hr IVCONT .Q10H GEORGETTE Last Admin: 12/02/23 04:21 Dose: 100 mls/hr Documented By: KARLENE Ketorolac Tromethamine (Ketorolac Tromethamine 30 Mg/Ml Vial) 30 mg IVPUSH Q6H PRN PRN Reason: abdominal pain Last Admin: 12/02/23 07:30 Dose: 30 mg Documented By: YOAV Ondansetron HCl (Ondansetron Hcl 4 Mg/2 Ml Vial) 4 mg IVPUSH Q8H PRN PRN Reason: Nausea and Vomiting Last Admin: 12/01/23 14:43 Dose: 4 mg Documented By: FREDDIE Oxycodone HCl (Oxycodone Hcl Immed Release 5 Mg Tablet) 5 mg PO Q4H PRN PRN Reason: Pain, Moderate(Pain Scale 4-6) Oxycodone HCl (Oxycodone Hcl Immed Release 5 Mg Tablet) 10 mg PO Q4H PRN PRN Reason: Pain, Severe (Pain Scale 7-10) Last Admin: 11/30/23 03:31 Dose: 10 mg Documented By: EMANUEL Sodium Chloride (0.9 % Sodium Chloride Flush 3 Ml Syringe) 3 ml IVFLUSH [facility] Last Admin: 12/02/23 07:30 Dose: 3 ml Documented By: YOAV Labs 11/26/23 05:59 11/29/23 05:19 Procedures Date of Service Date of Service: 12/02/23 Progress Note: A&P Assessment and plan (1) S/P laparoscopic cholecystectomy: Status: Acute Assessment and Plan: has nausea and vomitting CT ordered repeat labs ordered NPO for now for CT scan stable VS mother Lena in room - explained plan Time Spent With Patient Time: Total time managing care of this patient today ____ minutes. Quality Stroke Does the patient have a stroke diagnosis?: No VTE Prior VTE?: No VTE Risk Level:: Medical - moderate - high VTE Device Contraindication: N/A - Device Ordered VTE Drug Contraindication: Treatment Not Indicated
[2023-12-02 08:07] LABS: Hematocrit 31.9 % (37.0-47.0); Hemoglobin 10.4 g/dl (12.0-16.0); Mean Corpuscular HGB Conc 32.6 g/dl (31.0-35.0); Mean Corpuscular Hemoglobin 28.5 pg (27.0-33.0); Mean Corpuscular Volume 87.4 fL (80.0-98.0); Mean Platelet Volume 9.4 fL (9.4-12.3); Platelet Count 194 X10*3/uL (160-400); Red Blood Count 3.65 X10*6/uL (4.20-5.50); Red Cell Distribution Width 13.2 % (11.0-16.0); White Blood Count 5.4 X10*3/uL (4.8-10.8)
[2023-12-02 08:28] LABS: Alanine Aminotransferase 55 U/L (0-31); Albumin Level 3.1 g/dL (3.5-5.0); Alkaline Phosphatase 169 U/L (39-117); Anion Gap 9 (12-20); Aspartate Amino Transferase 23 U/L (5-31); Bilirubin Direct 0.3 mg/dL (0.0-0.5); Bilirubin Total 0.5 mg/dL (0.0-1.0); Blood Urea Nitrogen 8 mg/dL (9-16); Calcium 8.2 mg/dL (8.4-10.2); Carbon Dioxide 29 mmol/L (22-29); Chloride 105 mmol/L (96-108); Creatinine Clr Calc Pharmacy 174.1; Estimated Glomerular Filt Rate > 60; Glucose Random 103 mg/dL (60-115); Potassium 3.7 mmol/L (3.3-5.1); Sodium 139 mmol/L (135-145)
--- NOTE | 2023-12-02 08:36 | P.PNGS_ITS ---
Subjective Subjective Date of Service: 12/02/23 Interval history: Continued nausea and vomiting. Persistent RUQ pain. Physical Exam 2 Vital Signs: Vital Signs: Last Vital Signs Temp 97.1 F 12/02/23 07:32 Pulse 78 12/02/23 07:32 Resp 18 12/02/23 07:32 BP 139/83 12/02/23 07:32 Pulse Ox 96 12/02/23 07:32 O2 Del Method Room Air 12/02/23 07:32 O2 Flow Rate 2 11/29/23 14:18 BMI result Body Mass Index 56.7 Const: Other: uncomfortable appearing Orientation/consciousness: patient oriented x3 Resp: Effort & Inspection: normal respiratory effort GI: Inspection: No distended and Yes incision (clean) Palpation (GI): Soft to palpation, Tenderness to palpation present (GI), no guarding and not rigid Skin: General skin exam: no rashes or lesions noted and no jaundice Neuro: General: patient oriented x3 Objective Data Active Medications Acetaminophen (Acetaminophen 325 Mg Tablet) 650 mg PO Q6H PRN PRN Reason: Pain, Moderate(Pain Scale 4-6) Last Admin: 12/01/23 10:58 Dose: 650 mg Documented By: AIYANA Hydromorphone HCl (Hydromorphone Hcl 0.5 Mg/0.5 Ml Syringe) 0.5 mg IVPUSH Q3H PRN; Protocol PRN Reason: Pain, Severe (Pain Scale 7-10) Last Admin: 12/02/23 04:19 Dose: 0.5 mg Documented By: KARLENE Dextrose/Sodium Chloride (D51/2ns) 1,000 mls @ 100 mls/hr IVCONT .Q10H [facility]TE Last Admin: 12/02/23 04:21 Dose: 100 mls/hr Documented By: KARLENE Ketorolac Tromethamine (Ketorolac Tromethamine 30 Mg/Ml Vial) 30 mg IVPUSH Q6H PRN PRN Reason: abdominal pain Last Admin: 12/02/23 07:30 Dose: 30 mg Documented By: YOAV Ondansetron HCl (Ondansetron Hcl 4 Mg/2 Ml Vial) 4 mg IVPUSH Q8H PRN PRN Reason: Nausea and Vomiting Last Admin: 12/01/23 14:43 Dose: 4 mg Documented By: FREDDIE Oxycodone HCl (Oxycodone Hcl Immed Release 5 Mg Tablet) 5 mg PO Q4H PRN PRN Reason: Pain, Moderate(Pain Scale 4-6) Oxycodone HCl (Oxycodone Hcl Immed Release 5 Mg Tablet) 10 mg PO Q4H PRN PRN Reason: Pain, Severe (Pain Scale 7-10) Last Admin: 11/30/23 03:31 Dose: 10 mg Documented By: EMANUEL Sodium Chloride (0.9 % Sodium Chloride Flush 3 Ml Syringe) [facility] Last Admin: 12/02/23 07:30 Dose: 3 ml Documented By: YOAV Labs 12/02/23 08:03 12/02/23 08:03 Labs: Laboratory Results - last 24 hr 12/02/23 08:03 MCV 87.4 MCH 28.5 MCHC 32.6 RDW 13.2 Plt Count 194 MPV 9.4 Absolute Nucleated RBC 0.000 Nucleated RBC % (auto) 0.0 Anion Gap 9 L Estim Creat Clear Calc 174.1 Estimated GFR > 60 Random Glucose 103 Calcium 8.2 L Total Bilirubin 0.5 Direct Bilirubin 0.3 AST 23 ALT 55 H Alkaline Phosphatase 169 H Total Protein 6.0 L Albumin 3.1 L Procedures Date of Service Date of Service: 12/02/23 Progress Note: A&P Assessment and plan (1) S/P laparoscopic cholecystectomy: Status: Acute (2) Pancreatitis: Status: Acute Plan Unable to tolerated solid diet without nausea or vomiting and has persistent RUQ pain. AM LFTs pending, CT scan to r/o bile leak. May need ERCP. Will discuss with Dr. De Leon. Keep NPO. Discussed plan with patient. Time Spent With Patient Time: Total time managing care of this patient today ____ minutes. Quality Stroke Does the patient have a stroke diagnosis?: No VTE Prior VTE?: No VTE Risk Level:: Medical - moderate - high VTE Device Contraindication: N/A - Device Ordered VTE Drug Contraindication: Treatment Not Indicated
--- NOTE | 2023-12-02 09:01 | MHC.CM.PN ---
Addendum entered by Gretchen Sandoval RN 12/02/23 12:24: *CORRECTION* PLAN IS NOW FOR ERCP TODAY NO PLAN FOR DC. CM FOLLOWING FOR DC NEEDS Original Note: PATIENT IS DC HOME TODAY WITH NO SERVICES NEEDED. MOTHER TO TRANSPORT. RN AWARE OF PLAN.
--- NOTE | 2023-12-02 10:54 | P.PNIM_ITS ---
Subjective Subjective Date of Service: 12/02/23 Interval History: s/p CCY, still w/ n/v and not tolerating diet Review of Systems n/v, abd pain Physical Exam 2 Vital Signs: Vital Signs: Last Vital Signs Temp 97.1 F 12/02/23 07:32 Pulse 78 12/02/23 07:32 Resp 18 12/02/23 07:32 BP 139/83 12/02/23 07:32 Pulse Ox 96 12/02/23 07:32 O2 Del Method Room Air 12/02/23 07:32 O2 Flow Rate 2 11/29/23 14:18 BMI result Body Mass Index 56.7 General: AO X 3, no acute distress Resp: CTA bilateral CVS: S1,S2,RRR GI: +BS, NT, no distention Skin: No rash Neuro: motor grossly intact Psych: appropriate affect Const: Other: General: AO X 3, no acute distress Resp: CTA bilateral CVS: S1,S2,RRR GI: +BS, pain around incisions Skin: No rash Neuro: motor grossly intact Psych: appropriate affect Objective Data Active Medications Acetaminophen (Acetaminophen 325 Mg Tablet) 650 mg PO Q6H PRN PRN Reason: Pain, Moderate(Pain Scale 4-6) Last Admin: 12/01/23 10:58 Dose: 650 mg Documented By: AIYANA Hydromorphone HCl (Hydromorphone Hcl 0.5 Mg/0.5 Ml Syringe) 0.5 mg IVPUSH Q3H PRN; Protocol PRN Reason: Pain, Severe (Pain Scale 7-10) Last Admin: 12/02/23 04:19 Dose: 0.5 mg Documented By: KARLENE Dextrose/Sodium Chloride (D51/2ns) 1,000 mls @ 100 mls/hr IVCONT .Q10H GEORGETTE Last Admin: 12/02/23 04:21 Dose: 100 mls/hr Documented By: KARLENE Ketorolac Tromethamine (Ketorolac Tromethamine 30 Mg/Ml Vial) 30 mg IVPUSH Q6H PRN PRN Reason: abdominal pain Last Admin: 12/02/23 07:30 Dose: 30 mg Documented By: YOAV Ondansetron HCl (Ondansetron Hcl 4 Mg/2 Ml Vial) 4 mg IVPUSH Q8H PRN PRN Reason: Nausea and Vomiting Last Admin: 12/01/23 14:43 Dose: 4 mg Documented By: FREDDIE Oxycodone HCl (Oxycodone Hcl Immed Release 5 Mg Tablet) 5 mg PO Q4H PRN PRN Reason: Pain, Moderate(Pain Scale 4-6) Oxycodone HCl (Oxycodone Hcl Immed Release 5 Mg Tablet) 10 mg PO Q4H PRN PRN Reason: Pain, Severe (Pain Scale 7-10) Last Admin: 11/30/23 03:31 Dose: 10 mg Documented By: EMANUEL Sodium Chloride (0.9 % Sodium Chloride Flush 3 Ml Syringe) 3 ml IVFLUSH QSHIFT GEORGETTE Last Admin: 12/02/23 07:30 Dose: 3 ml Documented By: YOAV Labs 12/02/23 08:03 12/02/23 08:03 Labs: Laboratory Results - last 24 hr 12/02/23 08:03 MCV 87.4 MCH 28.5 MCHC 32.6 RDW 13.2 Plt Count 194 MPV 9.4 Absolute Nucleated RBC 0.000 Nucleated RBC % (auto) 0.0 Anion Gap 9 L Estim Creat Clear Calc 174.1 Estimated GFR > 60 Random Glucose 103 Calcium 8.2 L Total Bilirubin 0.5 Direct Bilirubin 0.3 AST 23 ALT 55 H Alkaline Phosphatase 169 H Total Protein 6.0 L Albumin 3.1 L Assessment and Plan (1) Elevated LFTs: Status: Acute (2) Pancreatitis: Status: Acute Assessment and Plan: 33 years old woman admitted with: Acute gallstone pancreatitis, choledocholithiasis? s/p CCY on 11/29 with persistent N/V and not tolerating diet, LFTs trending down ?feeling defect on IOC. For ERCP today morbid Obesity. BMI 56.7 kg/m2. encouraged to lose weight,cut down calories Dvt prophylaxis: Heparin subcut need for inpt: post op pain, requiring IV narc, n/v and diet been advanced slowly Quality Stroke Does the patient have a stroke diagnosis?: No VTE Prior VTE?: No VTE Risk Level:: Medical - moderate - high VTE Device Contraindication: N/A - Device Ordered VTE Drug Contraindication: Treatment Not Indicated
--- NOTE | 2023-12-02 13:48 | P.HPSUR_ITS ---
Pre-Procedural Eval Section A - 24 Hr Update-Section A only Date of Service: 12/02/23 Section B - Complete if H&P > 30 days Chief Complaint: gallstones Details of Present Illness: persistent raised LFT with RUq pain, inspite of cholecystectomy, abn intra op cholangiogram. Relevant Family History (Specify if Yes): No Relevant Social History: None Present Medications: see Short Stay Collaborative assessment Medical History: Significant History History of Previous Operations: Relevant previous surgery/procedure and date(s) Allergies: Allergies Allergy/AdvReac Type Severity Reaction Status Date / Time No Known Allergies Allergy Verified 11/25/23 23:23 Review of Systems Sugical H&P ROS: Negative: Constitution, Cardiovascular, Respiratory, Neurological, Psychiatric, Hem-Onc, Allergic/Immunologic, Gastrointestinal, Genitourinary, Musculoskeletal, Integumentary, Endocrine and Eyes/Ears/Nose/Throat Exam Surgical H&P Exam: Normal: HEENT, Normal: Heart, Normal: Lungs, Normal: Extrem ities, Normal: Abdomen, Normal: Skin and Normal: Neurological Plan Diagnosis/Plan: Unchanged I have reviewed the history and physical and performed a pertinent physical examination on my patient. No changes have occurred unless specified. Time Spent With Patient Time: Total time managing care of this patient today ____ minutes.
--- NOTE | 2023-12-02 14:43 | HO.ANESPROP2 ---
HPI - Anesthesia Eval Consult details Narrative: [facility] Active Problems Active Problems: All Active Problems (Updated 11/29/23 @ 09:36 by Lacie Bonilla RN) S/P laparoscopic cholecystectomy (Acute) Elevated LFTs (Acute) Pancreatitis (Acute) Past Medical History Medical History No known health problems Patient : No Family History Family history of problems with anesthesia: No Surgical History Surgical History (Updated 12/02/23 @ 12:27 by Lissette Epsinoza) History of laparoscopic cholecystectomy History of Problems with Anesthesia: No Social History Social History Household Members: None Housing: Condominium Do you presently have visiting nurse or other home services: No Comment: counts correct Patient Tobacco Use Status: Never used Tobacco Second Hand Smoke Exposure: No service: No Meds Allergies Allergy/AdvReac Type Severity Reaction Status Date / Time No Known Allergies Allergy Verified 11/25/23 23:23 Active Medications: Current Medications Acetaminophen (Acetaminophen 325 Mg Tablet) 650 mg PO Q6H PRN PRN Reason: Pain, Moderate(Pain Scale 4-6) Last Admin: 12/01/23 10:58 Dose: 650 mg Hydromorphone HCl (Hydromorphone Hcl 0.5 Mg/0.5 Ml Syringe) 0.5 mg IVPUSH Q3H PRN; Protocol PRN Reason: Pain, Severe (Pain Scale 7-10) Last Admin: 12/02/23 11:00 Dose: 0.5 mg Dextrose/Sodium Chloride (D51/2ns) 1,000 mls @ 100 mls/hr IVCONT .Q10H GEORGETTE Last Infusion: 12/02/23 14:24 Dose: Infused Ketorolac Tromethamine (Ketorolac Tromethamine 30 Mg/Ml Vial) 30 mg IVPUSH Q6H PRN PRN Reason: abdominal pain Last Admin: 12/02/23 07:30 Dose: 30 mg Ondansetron HCl (Ondansetron Hcl 4 Mg/2 Ml Vial) 4 mg IVPUSH Q8H PRN PRN Reason: Nausea and Vomiting Last Admin: 12/01/23 14:43 Dose: 4 mg Oxycodone HCl (Oxycodone Hcl Immed Release 5 Mg Tablet) 5 mg PO Q4H PRN PRN Reason: Pain, Moderate(Pain Scale 4-6) Oxycodone HCl (Oxycodone Hcl Immed Release 5 Mg Tablet) 10 mg PO Q4H PRN PRN Reason: Pain, Severe (Pain Scale 7-10) Last Admin: 11/30/23 03:31 Dose: 10 mg Sodium Chloride (0.9 % Sodium Chloride Flush 3 Ml Syringe) [facility] Last Admin: 12/02/23 07:30 Dose: 3 ml Home Medications Medication Instructions Recorded Confirmed Last Taken Type ibuprofen 600 mg tablet 600 mg PO DAILY PRN Pain 11/26/23 11/26/23 Unknown History Exam Height,Weight and Vital Signs: Height 5 ft 5 in Weight 154.54 kg Last Vital Signs Temp 98.3 F 12/02/23 14:04 Pulse 79 12/02/23 14:04 Resp 20 12/02/23 14:04 BP 104/60 12/02/23 14:04 Pulse Ox 98 12/02/23 14:04 O2 Del Method Room Air 12/02/23 14:04 O2 Flow Rate 2 11/29/23 14:18 Pertinent Lab Results Pertinent Lab Results: Laboratory Tests 11/25/23 11/26/23 11/26/23 23:45 00:33 01:27 WBC 9.7 RBC 4.94 Hgb 13.9 Hct 42.3 MCV 85.6 MCH 28.1 MCHC 32.9 RDW 12.8 Plt Count 232 MPV 10.2 Immature Gran % (Auto) 0.4 Neut % (Auto) 77.5 H Lymph % (Auto) 15.2 L Lyman % (Auto) 6.3 Eos % (Auto) 0.3 Baso % (Auto) 0.3 Lymph # (Auto) 1.5 Lyman # (Auto) 0.6 Eos # (Auto) 0.0 Baso # (Auto) 0.0 Abs Immat Gran (auto) 0.04 H Absolute Neuts (auto) 7.5 Absolute Nucleated RBC 0.000 Nucleated RBC % (auto) 0.0 Hold Purple Top Sodium 142 Potassium 3.8 Chloride 104 Carbon Dioxide 28 Anion Gap 14 BUN 18 H Creatinine 0.71 Estim Creat Clear Calc 169.2 Estimated GFR > 60 Random Glucose 112 Calcium 9.2 Total Bilirubin 1.6 H Direct Bilirubin 1.1 H AST 442 H ALT 318 H Alkaline Phosphatase 239 H Total Protein 7.3 Albumin 3.9 Triglycerides 65 Lipase > 3000 H Urine Color Dark Yellow Urine Appearance Cloudy Urine pH 7.0 Ur Specific [place] 1.020 Urine Protein Negative Urine Glucose (UA) Negative Urine Ketones Negative Urine Blood Negative Urine Nitrite Negative Ur Leukocyte Esterase Small (1+) H Urine RBC 0-2 Urine WBC 6-10 H Ur Squamous Epith Cells 11-20 Urine Bacteria 2+ Hyaline Casts 0-2 Urine Test NEGATIVE 11/26/23 11/26/23 11/27/23 05:59 16:23 05:06 WBC 9.8 RBC 4.55 Hgb 13.0 Hct 39.8 MCV 87.5 MCH 28.6 MCHC 32.7 RDW 12.7 Plt Count 222 MPV 10.0 Immature Gran % (Auto) 0.5 H Neut % (Auto) 87.6 H Lymph % (Auto) 9.6 L Lyman % (Auto) 2.1 Eos % (Auto) 0.0 Baso % (Auto) 0.2 Lymph # (Auto) 0.9 L Lyman # (Auto) 0.2 Eos # (Auto) 0.0 Baso # (Auto) 0.0 Abs Immat Gran (auto) 0.05 H Absolute Neuts (auto) 8.6 H Absolute Nucleated RBC 0.000 Nucleated RBC % (auto) 0.0 Hold Purple Top SEE NOTE Sodium 141 Potassium 4.5 Chloride 107 Carbon Dioxide 27 Anion Gap 12 BUN 16 Creatinine 0.68 Estim Creat Clear Calc 176.6 Estimated GFR > 60 Random Glucose 117 H Calcium 8.7 Total Bilirubin 1.8 H 1.1 H Direct Bilirubin 0.6 H AST 379 H 213 H ALT 343 H 286 H Alkaline Phosphatase 247 H 240 H Total Protein 6.5 6.1 L Albumin 3.6 3.4 L Triglycerides Lipase 1200 H 431 H Urine Color Urine Appearance Urine pH Ur Specific [place] Urine Protein Urine Glucose (UA) Urine Ketones Urine Blood Urine Nitrite Ur Leukocyte Esterase Urine RBC Urine WBC Ur Squamous Epith Cells Urine Bacteria Hyaline Casts Urine Test 11/28/23 11/29/23 11/30/23 05:12 05:19 06:58 WBC RBC Hgb Hct MCV MCH MCHC RDW Plt Count MPV Immature Gran % (Auto) Neut % (Auto) Lymph % (Auto) Lyman % (Auto) Eos % (Auto) Baso % (Auto) Lymph # (Auto) Lyman # (Auto) Eos # (Auto) Baso # (Auto) Abs Immat Gran (auto) Absolute Neuts (auto) Absolute Nucleated RBC Nucleated RBC % (auto) Hold Purple Top SEE NOTE SEE NOTE Sodium 141 143 Potassium 3.9 3.8 Chloride 105 107 Carbon Dioxide 26 29 Anion Gap 14 11 L BUN 6 L 5 L Creatinine 0.67 0.63 Estim Creat Clear Calc 179.3 190.7 Estimated GFR > 60 > 60 Random Glucose 88 94 Calcium 8.4 8.2 L Total Bilirubin 0.6 0.6 0.5 Direct Bilirubin 0.3 AST 43 H 28 32 H ALT 132 H 97 H 91 H Alkaline Phosphatase 172 H 172 H 206 H Total Protein 5.7 L 5.7 L 6.9 Albumin 3.0 L 3.0 L 3.5 Triglycerides Lipase 63 Urine Color Urine Appearance Urine pH Ur Specific [place] Urine Protein Urine Glucose (UA) Urine Ketones Urine Blood Urine Nitrite Ur Leukocyte Esterase Urine RBC Urine WBC Ur Squamous Epith Cells Urine Bacteria Hyaline Casts Urine Test 12/01/23 12/02/23 05:30 08:03 WBC 5.4 RBC 3.65 L Hgb 10.4 L Hct 31.9 L MCV 87.4 MCH 28.5 MCHC 32.6 RDW 13.2 Plt Count 194 MPV 9.4 Immature Gran % (Auto) Neut % (Auto) Lymph % (Auto) Lyman % (Auto) Eos % (Auto) Baso % (Auto) Lymph # (Auto) Lyman # (Auto) Eos # (Auto) Baso # (Auto) Abs Immat Gran (auto) Absolute Neuts (auto) Absolute Nucleated RBC 0.000 Nucleated RBC % (auto) 0.0 Hold Purple Top SEE NOTE Sodium 139 Potassium 3.7 Chloride 105 Carbon Dioxide 29 Anion Gap 9 L BUN 8 L Creatinine 0.69 Estim Creat Clear Calc 174.1 Estimated GFR > 60 Random Glucose 103 Calcium 8.2 L Total Bilirubin 0.5 0.5 Direct Bilirubin 0.3 0.3 AST 22 23 ALT 64 H 55 H Alkaline Phosphatase 153 H 169 H Total Protein 5.8 L 6.0 L Albumin 3.0 L 3.1 L Triglycerides Lipase Urine Color Urine Appearance Urine pH Ur Specific [place] Urine Protein Urine Glucose (UA) Urine Ketones Urine Blood Urine Nitrite Ur Leukocyte Esterase Urine RBC Urine WBC Ur Squamous Epith Cells Urine Bacteria Hyaline Casts Urine Test Airway Mallampati Class: III (small mouth) TM Dist: <=3cm Neck ROM: Full Loose/Missing/Broken Teeth: No Heart: ok Lungs: ok Assessment and Plan Assessment Anesthesia Assessment: Anesthesia Plan Discussed and Chart Reviewed Final Anesthetic Review Family History of Problems with Anesthesia: No History of Problems with Anesthesia: No NPO: Yes ASA Class: III Final Preanesthetic Review: No Changes in Pt Med Stat, Meds/Allgs Chart Reviewed, Consent Obtained/Reviewed and Anes Risks/Benef Reviewed Patient Risk: High Procedure Risk: Intermediate Anesthetic Plan Anesthetic Plan: GA and Agree w/ Assess. and Plan Disposition: Standard PACU
--- NOTE | 2023-12-02 16:33 | W.PM.OPN ---
Operative Note Operative Note Date of Service: 12/02/23 Narrative: Description: Endoscopic retrograde cholangiopancreatography (ERCP) PROCEDURE: Endoscopic retrograde cholangiopancreatography with sphincterotomy, intra op cholangiogram, balloon sweep, and stent placement. INDICATION FOR THE PROCEDURE: Patient with a history of recent cholecystectomy with abnormal cholangiogram and ongoing RUQ pain. MEDICATIONS: General anesthesia, rectal indomethacin 100 mg, cefotetan 2 g IV The risks of the procedure were made aware to the patient and consisted of medication reaction, bleeding, perforation, aspiration, and post ERCP pancreatitis. DESCRIPTION OF PROCEDURE: After informed consent and appropriate sedation, the duodenoscope was inserted into the oropharynx, down the esophagus, and into the stomach. The scope was then advanced through the pylorus to the ampulla. The ampulla had a markedly abnormal appearance, and appeared inflammed. The tome was directed and the wire entered the PD. The wire was removed but again went into the PD. A albin precut was then performed and the tome re-angled with access into the CBD. A cholangiogram was done and bile leak noted from the cystic duct remnant. A possible filling defect was noted. a sphincterotomy was performed and a basket was then used to sweep the duct but nothing was retrieved. A balloon was then passed and swept across the duct. An occlusion cholangiogram did not reveal any filling defect but again revealed the bile leak. At this point a 10 Fr x 9 cm stent was placed with excellent biliary drainage noted. There was some minor oozing which had ceased by the end of the procedure. The stomach was then decompressed and the endoscope was withdrawn. FINDINGS: 1. Bile leak from cystic duct s/p RECOMMENDATIONS: 1. NPO except ice chips for next 4-6 hrs then clears as tolerated, can advance diet tomorrow if feels well 2. ERCP in 8 weeks or so to remove the stent
--- NOTE | 2023-12-02 17:00 | PM.EVENT ---
Event Note Date of Service: 12/02/23 Event Note: pt underwent ERCP had a cystic duct leak - stenting and sphicnterotomy done no CBD stone seen looks well abd soft follow LFTs ok to have clear liquids later, advance slowly as tolarated explained above to pt and her mom and dad Time Spent With Patient Time: Total time managing care of this patient today ____ minutes.
--- NOTE | 2023-12-02 17:43 | PC.NURSE ---
Approximately 1735- Patient arrived back to floor from PACU s/p ERCP. Patient assisted to the restroom with positive void. Vital signs obtained and stable. Patient awake and oriented, and presenting with mild sedation. C/o mild abdominal, reporting it is improved from prior to having her ERCP today.
[2023-12-03 03:05] VITALS: BP 132/65; PULSE 58; RESP 18; TEMP 36.4; O2SAT 98
[2023-12-03] MEDS: Dextrose 5 % and 0.45 % NaCl 1,000 ML 100 ML IVCONT (03:07)
[2023-12-03 07:35] VITALS: BP 149/75; PULSE 99; RESP 16; TEMP 35.9; O2SAT 98
[2023-12-03] MEDS: oxyCODONE HCl Immed Release 5 MG TABLET PO ×2 (07:48→16:44)
--- NOTE | 2023-12-03 08:15 | PM.PNGS ---
Subjective Subjective Date of Service: 12/03/23 <Elvira Ny PA-C - Last Filed: 12/03/23 08:16> 12/03/23 <Jonathan Estrada MD - Last Filed: 12/03/23 09:57> Interval history: Feels much better this morning. RUQ pain resolved. Tolerated some jello last night. <Elvira Ny PA-C - Last Filed: 12/03/23 08:16> Physical Exam Vital Signs: Vital Signs: Last Vital Signs Temp 96.7 F L 12/03/23 07:35 Pulse 99 12/03/23 07:35 Resp 16 12/03/23 07:35 BP 149/75 H 12/03/23 07:35 Pulse Ox 98 12/03/23 07:35 O2 Del Method Room Air 12/03/23 07:35 O2 Flow Rate 4 12/02/23 16:43 BMI result Body Mass Index 56.7 <Elvira Ny PA-C - Last Filed: 12/03/23 08:16> Const: General: comfortable, no acute distress and alert <Elvira Ny PA-C - Last Filed: 12/03/23 08:16> Orientation/consciousness: patient oriented x3 <CHANDA Rivas Last Filed: 12/03/23 08:16> Resp: Effort & Inspection: normal respiratory effort <Elvira Ny PA-C - Last Filed: 12/03/23 08:16> GI: Inspection: No distended and Yes incision (clean) <Elvira Ny PA-C - Last Filed: 12/03/23 08:16> Palpation (GI): Soft to palpation, Tenderness to palpation present (GI) (mild incisional), no guarding and not rigid <CHANDA Rivas Last Filed: 12/03/23 08:16> Skin: General skin exam: no rashes or lesions noted and no jaundice <CHANDA Rivas Last Filed: 12/03/23 08:16> Neuro: General: patient oriented x3 and moves all extremities <CHANDA Rivas Last Filed: 12/03/23 08:16> Objective Data Active Medications Acetaminophen (Acetaminophen 325 Mg Tablet) 650 mg PO Q6H PRN PRN Reason: Pain, Moderate(Pain Scale 4-6) Last Admin: 12/01/23 10:58 Dose: 650 mg Documented By: AIYANA Fentanyl (Fentanyl Citrate/Pf 100 Mcg/2 Ml Vial) 50 mcg IVPUSH Q5M PRN; Protocol PRN Reason: Pain, Severe (Pain Scale 7-10) Hydromorphone HCl (Hydromorphone Hcl 0.5 Mg/0.5 Ml Syringe) 0.5 mg IVPUSH Q3H PRN; Protocol PRN Reason: Pain, Severe (Pain Scale 7-10) Last Admin: 12/02/23 11:00 Dose: 0.5 mg Documented By: YOAV Hydromorphone HCl (Hydromorphone Hcl 0.5 Mg/0.5 Ml Syringe) 0.5 mg IVPUSH Q5M PRN; Protocol PRN Reason: Pain, Severe (Pain Scale 7-10) Dextrose/Sodium Chloride (D51/2ns) 1,000 mls @ 100 mls/hr IVCONT .Q10H GEORGETTE Last Admin: 12/03/23 03:07 Dose: 100 mls/hr Documented By: KARLENE Ketorolac Tromethamine (Ketorolac Tromethamine 30 Mg/Ml Vial) 30 mg IVPUSH Q6H PRN PRN Reason: abdominal pain Last Admin: 12/02/23 23:01 Dose: 30 mg Documented By: KARLENE Ondansetron HCl (Ondansetron Hcl 4 Mg/2 Ml Vial) 4 mg IVPUSH Q8H PRN PRN Reason: Nausea and Vomiting Last Admin: 12/01/23 14:43 Dose: 4 mg Documented By: FREDDIE Ondansetron HCl (Ondansetron Hcl 4 Mg/2 Ml Vial) 4 mg IVPUSH ONCE PRN PRN Reason: Nausea and Vomiting Oxycodone HCl (Oxycodone Hcl Immed Release 5 Mg Tablet) 5 mg PO Q4H PRN PRN Reason: Pain, Moderate(Pain Scale 4-6) Last Admin: 12/03/23 07:48 Dose: 5 mg Documented By: IVON Oxycodone HCl (Oxycodone Hcl Immed Release 5 Mg Tablet) 10 mg PO Q4H PRN PRN Reason: Pain, Severe (Pain Scale 7-10) Last Admin: 11/30/23 03:31 Dose: 10 mg Documented By: EMANUEL Sodium Chloride (0.9 % Sodium Chloride Flush 3 Ml Syringe) 3 ml IVFLUSH QSHIFT [facility] Last Admin: 12/03/23 07:34 Dose: Not Given Documented By: IVON Non-Admin Reason: IV Running <Elvira Ny PA-C - Last Filed: 12/03/23 08:16> Labs CBC & Chem 7: 12/02/23 08:03 12/02/23 08:03 <Elvira Ny PA-C - Last Filed: 12/03/23 08:16> Labs: Laboratory Results - last 24 hr 12/02/23 08:03 Anion Gap 9 L Estim Creat Clear Calc 174.1 Estimated GFR > 60 Random Glucose 103 Calcium 8.2 L Total Bilirubin 0.5 Direct Bilirubin 0.3 AST 23 ALT 55 H Alkaline Phosphatase 169 H Total Protein 6.0 L Albumin 3.1 L <Elvira Ny PA-C - Last Filed: 12/03/23 08:16> Procedures Date of Service Date of Service: 12/03/23 <Elvira Ny PA-C - Last Filed: 12/03/23 08:16> 12/03/23 <Jonathan Estrada MD - Last Filed: 12/03/23 09:57> Progress Note: A&P Assessment and plan (1) S/P laparoscopic cholecystectomy: Status: Acute <Elvira Ny PA-C - Last Filed: 12/03/23 08:16> Assessment and Plan: ERCP done with stenting for bile leak doing well feels well diet as tolerated ok to dc home today when tolerating diet ffup in office seen and examined independently <Jonathan Estrada MD - Last Filed: 12/03/23 09:57> (2) Elevated LFTs: Status: Acute <Elvira Ny PA-C - Last Filed: 12/03/23 08:16> Assessment and Plan: S/p Endoscopic retrograde cholangiopancreatography with sphincterotomy, intra op cholangiogram, balloon sweep, and stent placement. Doing well this morning, RUQ pain nearly resolved. Advance to solid diet. If tolerating, stable for dc to home. F/u in office in 2 weeks, f/u with GI for stent removal. <Elvira Ny PA-C - Last Filed: 12/03/23 08:16> Time Spent With Patient Time: Total time managing care of this patient today ____ minutes. <Elvira Ny PA-C - Last Filed: 12/03/23 08:16> Quality Stroke Does the patient have a stroke diagnosis?: No <Elvira Ny PA-C - Last Filed: 12/03/23 08:16> VTE Prior VTE?: No <Elvira Ny PA-C - Last Filed: 12/03/23 08:16> VTE Risk Level:: Medical - moderate - high <Elvira Ny PA-C - Last Filed: 12/03/23 08:16> VTE Device Contraindication: N/A - Device Ordered <Elvira Ny PA-C - Last Filed: 12/03/23 08:16> VTE Drug Contraindication: Treatment Not Indicated <Elvira Ny PA-C - Last Filed: 12/03/23 08:16>
--- NOTE | 2023-12-03 08:33 | P.PNGI_ITS ---
Subjective Subjective Date of Service: 12/03/23 Interval History: Doing well since procedure yesterday Ok with PO passing wind no abdominal pain, no nausea no jaundice Critical Care Time (minutes): 0 Physical Exam 2 Vital Signs: Vital Signs: Last Vital Signs Temp 96.7 F L 12/03/23 07:35 Pulse 99 12/03/23 07:35 Resp 16 12/03/23 07:35 BP 149/75 H 12/03/23 07:35 Pulse Ox 98 12/03/23 07:35 O2 Del Method Room Air 12/03/23 07:35 O2 Flow Rate 4 12/02/23 16:43 BMI result Body Mass Index 56.7 EXAM: GENERAL: The patient is well developed and nontoxic, obese VITAL SIGNS:see workflow HEENT: Nonicteric sclerae, PERRLA, EOMI. Oropharynx clear. Moist mucous membranes. Conjunctivae appear well perfused. No thyroid mass. CHEST: Chest wall is nontender. HEART: Regular rate and rhythm without murmurs. LUNGS: Clear to auscultation bilaterally. ABDOMEN: Soft, positive bowel sounds, nontender, no organomegaly.no flank tenderness, incisions noted SKIN: No rash, no excessive bruising, petechiae, or purpura. NEUROLOGIC: Cranial nerves II-XII intact without motor/sensory deficit. Psych: Appearance: grossly normal Objective Data Labs 12/02/23 08:03 12/02/23 08:03 Microbiology Microbiology Results: Microbiology 11/25/23 Unknown Urine clean catch - Urine bellamy top Urine Culture - Final Procedures Date of Service Date of Service: 12/03/23 Progress Note: A&P Assessment and plan (1) S/P laparoscopic cholecystectomy: Status: Acute (2) Bile leak: Status: Acute Plan 1/ 33 yr old lady s/p cholecystectomy with post op pain now s/p ERCP with stent after concern for bile leak, doing well PLAN: 1/ Advance diet 2/ mobilize 3/ remove stent in 2 months or so, advised to come to ED [facility] if any jaundice, chills, fever in case of stent occlusion Time Spent With Patient Time: Total time managing care of this patient today ____ minutes. Quality Stroke Does the patient have a stroke diagnosis?: No VTE Prior VTE?: No VTE Risk Level:: Medical - moderate - high VTE Device Contraindication: N/A - Device Ordered VTE Drug Contraindication: Treatment Not Indicated
--- NOTE | 2023-12-03 08:40 | HO.POSTANES ---
Post Anesthesia Evaluation Post Anesthesia Evaluation Date of Service: 12/03/23 Vital Signs: Vital Signs Temp Pulse Resp BP Pulse Ox O2 Del Method 12/03/23 07:35 96.7 F L 99 16 149/75 H 98 Room Air 12/03/23 03:05 97.6 F 58 18 132/65 98 Room Air Anesthesia: General Endotracheal-GETA Mental Status: Awake Pain Control: Satisfactory Nausea/Vomiting: None Hydration: Adequate Anesthesia-Related Issues: No Anes. Related Issues
--- NOTE | 2023-12-03 08:41 | MHC.CM.PN ---
PT TO DC HOME TODAY WITH NO SERVICES [facility]IA [facility]
--- NOTE | 2023-12-03 12:44 | P.PNIM_ITS ---
Subjective Subjective Date of Service: 12/03/23 Interval History: Abdominal pain significantly improved but not completely resolved, denies fever, no chills ,took few bites of breakfast, feels full, no nausea no vomiting, no diarrhea, no other acute issues overnight. Review of Systems All other system reviewed and negative. Physical Exam 2 Vital Signs: Vital Signs: Last Vital Signs Temp 96.7 F L 12/03/23 07:35 Pulse 99 12/03/23 07:35 Resp 16 12/03/23 07:35 BP 149/75 H 12/03/23 07:35 Pulse Ox 98 12/03/23 07:35 O2 Del Method Room Air 12/03/23 07:35 O2 Flow Rate 4 12/02/23 16:43 BMI result Body Mass Index 56.7 Const: Other: General awake alert x3, resting comfortably in no acute distress. Neck supple no JVD. CVS regular rate rhythm, Respiratory lungs clear to auscultation, no respiratory distress, no wheeze, no rhonchi. Gastrointestinal abdomen soft, mild epigastric tenderness to palpation, bowel sounds audible, no guarding , no rigidity. Extremities no edema. Neuro non focal Skin no rash Psych appropriate affect Objective Data Active Medications Acetaminophen (Acetaminophen 325 Mg Tablet) 650 mg PO Q6H PRN PRN Reason: Pain, Moderate(Pain Scale 4-6) Last Admin: 12/01/23 10:58 Dose: 650 mg Documented By: AIYANA Hydromorphone HCl (Hydromorphone Hcl 0.5 Mg/0.5 Ml Syringe) 0.5 mg IVPUSH Q3H PRN; Protocol PRN Reason: Pain, Severe (Pain Scale 7-10) Last Admin: 12/02/23 11:00 Dose: 0.5 mg Documented By: YOAV Ketorolac Tromethamine (Ketorolac Tromethamine 30 Mg/Ml Vial) 30 mg IVPUSH Q6H PRN PRN Reason: abdominal pain Last Admin: 12/02/23 23:01 Dose: 30 mg Documented By: KARLENE Ondansetron HCl (Ondansetron Hcl 4 Mg/2 Ml Vial) 4 mg IVPUSH Q8H PRN PRN Reason: Nausea and Vomiting Last Admin: 12/01/23 14:43 Dose: 4 mg Documented By: FREDDIE Ondansetron HCl (Ondansetron Hcl 4 Mg/2 Ml Vial) 4 mg IVPUSH ONCE PRN PRN Reason: Nausea and Vomiting Oxycodone HCl (Oxycodone Hcl Immed Release 5 Mg Tablet) 5 mg PO Q4H PRN PRN Reason: Pain, Moderate(Pain Scale 4-6) Last Admin: 12/03/23 07:48 Dose: 5 mg Documented By: IVON Oxycodone HCl (Oxycodone Hcl Immed Release 5 Mg Tablet) 10 mg PO Q4H PRN PRN Reason: Pain, Severe (Pain Scale 7-10) Last Admin: 11/30/23 03:31 Dose: 10 mg Documented By: EMANUEL Sodium Chloride (0.9 % Sodium Chloride Flush 3 Ml Syringe) [address] [facility] Last Admin: 12/03/23 07:34 Dose: Not Given Documented By: IVON Non-Admin Reason: IV Running Labs 12/02/23 08:03 12/02/23 08:03 Assessment and Plan (1) Elevated LFTs: Status: Acute (2) Pancreatitis: Status: Acute Assessment and Plan: 33 years old woman admitted with: Acute gallstone pancreatitis s/p CCY on 11/29 postprocedure noted to have persistent N/V and not tolerating diet, LFTs trending down Underwent ERCP that showed bile leak from cystic duct, status post stent placement patient with mild persistent pain, tolerating clears Will follow LFTs, diet advanced to regular, DC IV fluids minimize narcotics encourage ambulation If tolerates well DC home in 24 hours morbid Obesity. BMI 56.7 kg/m2. encouraged to lose weight, recommend low calories Dvt prophylaxis: Compression boots need for inpt: Post stent placement need close monitoring while diet is being advanced , pain management on IV narcotics. Quality Stroke Does the patient have a stroke diagnosis?: No VTE Prior VTE?: No VTE Risk Level:: Medical - moderate - high VTE Device Contraindication: N/A - Device Ordered VTE Drug Contraindication: Treatment Not Indicated
[2023-12-03 16:00] VITALS: BP 153/64; PULSE 68; RESP 16; TEMP 36; O2SAT 100
[2023-12-03] MEDS: 0.9 % Sodium Chloride Flush 3 ML SYRINGE IVFLUSH ×2 (16:31→19:19)
[2023-12-03 19:28] VITALS: BP 113/58; PULSE 82; RESP 18; TEMP 36.6; O2SAT 100
[2023-12-04] MEDS: oxyCODONE HCl Immed Release 5 MG TABLET PO (01:08)
[2023-12-04 03:14] VITALS: BP 137/61; PULSE 71; RESP 18; TEMP 36.4; O2SAT 98
[2023-12-04 06:52] LABS: Alanine Aminotransferase 50 U/L (0-31); Albumin Level 2.8 g/dL (3.5-5.0); Alkaline Phosphatase 161 U/L (39-117); Anion Gap 11 (12-20); Aspartate Amino Transferase 25 U/L (5-31); Bilirubin Direct 0.3 mg/dL (0.0-0.5); Bilirubin Total 0.4 mg/dL (0.0-1.0); Blood Urea Nitrogen 8 mg/dL (9-16); Calcium 7.8 mg/dL (8.4-10.2); Carbon Dioxide 29 mmol/L (22-29); Chloride 104 mmol/L (96-108); Creatinine Clr Calc Pharmacy 184.8; Estimated Glomerular Filt Rate > 60; Glucose Random 85 mg/dL (60-115); Potassium 3.7 mmol/L (3.3-5.1); Sodium 140 mmol/L (135-145); Total Protein 5.3 g/dL (6.5-8.0)
[2023-12-04] MEDS: 0.9 % Sodium Chloride Flush 3 ML SYRINGE IVFLUSH (07:28)
[2023-12-04 08:00] VITALS: BP 120/68; PULSE 78; RESP 18; TEMP 36.3; O2SAT 99
--- NOTE | 2023-12-04 11:05 | P.DS_ITS ---
DS: Providers Provider Date of Service: 12/04/23 Date of admission: 11/26/23 05:21 Primary care physician: Paz Berrios DNP, CHILD SUPPORT AGENT, N Consults: 11/26/23 05:33 Consult to Gastroenterology Routine Consulting Provider: Cheryl Burdick Reason for consultation: Pancreatitis, elevated LFTs Has provider been notified: No 11/26/23 16:37 Consult to General Surgery Routine Consulting Provider: [facility] [place] [facility] [place] [facility] Reason for consultation: cholelitasis ,pancreatitis Has provider been notified: No DS: Diagnosis Discharge Diagnosis (1) Elevated LFTs: Status: Acute (2) Pancreatitis: Status: Acute DS: Summary Hospital Course Hospital Course: Chief Complaint: Abdominal pain Emma Almanza is a 33 years old woman with no significant past medical history presents to the emergency department complaining of right upper quadrant and epigastric pain that started last night associated with multiple events of bilious vomiting. She described the pain as colicky. Her last meal before the symptoms was assumed. She denies fever, chills, diarrhea or constipation. She did not report any acute urinary symptoms. She denies alcohol abuse (only drinks in occasions -last time she drank alcoholic beverage was 2 weeks ago), no tobacco smoking or illicit drug use. She denied any cardiopulmonary. She has no history of abdominal surgeries and has never been hospitalized. In the ED, she was found to have normal vital signs. Blood workup is remarkable elevated lipase, > 3000 as well as elevated AST, ALT, total bilirubin and alk- phos. There is no leukocytosis or anemia. ED tx: NS 2 L bolus, Zofran 4 mg IV and morphine 2 mg IV. hospital course: patient presented with abdominal pain and workup revealed gallstone pancreatitis, choledocholithiasis, with lipase level greater than 3000. Over the course of hospitalization LFTs trended down along with lipase and thus did not need ERCP and eventually underwent cholecystecomy. Lipase level is now normal, and LFTs continue to trend down, but patient noted to have persistent pain and unable to tolerate diet, therefore evaluated by Gastroenterology and underwent ERCP that showed bile leak from cystic duct underwent stent placement, a possible filling defect was noted a sphincterotomy was performed and a basket was used to sweep the duct but nothing was retrieved, cholangiogram did not reveal any filling defects but revealed the bile leak, post procedure diet was advanced and she is tolerating well recommend low-fat diet and advised weight loss. Time Attestation Discharge coordination time: Greater than 30 minutes Quality: Safe Use of Opioids Does Pt have an Active Cancer Diagnosis on the Problem List?: No Quality: Stroke Does the patient have a stroke diagnosis?: No Physical Exam Vital Signs: Vital Signs: Last Vital Signs Temp 97.4 F 12/04/23 08:00 Pulse 78 12/04/23 08:00 Resp 18 12/04/23 08:00 BP 120/68 12/04/23 08:00 Pulse Ox 99 12/04/23 08:00 O2 Del Method Room Air 12/04/23 08:00 O2 Flow Rate 4 12/02/23 16:43 BMI result Body Mass Index 56.7 Const: Other: General awake alert x3, resting comfortably in no acute distress. Neck supple no JVD. CVS regular rate rhythm, Respiratory lungs clear to auscultation, no respiratory distress, no wheeze, no rhonchi. Gastrointestinal abdomen soft, mild tenderness to palpation mid abdomen, bowel sounds audible, no guarding , no rigidity. Extremities no edema. Neuro non focal Skin no rash Psych appropriate affect DS: Data Data Completed and Pending Completed studies during hospitalization [Text1]: Pending at discharge 11/29/23 12:43 Surgical [PTH] Routine Labs on day of discharge: Laboratory Results - last 24 hr 12/04/23 06:03 Hold Purple Top SEE NOTE Sodium 140 Potassium 3.7 Chloride 104 Carbon Dioxide 29 Anion Gap 11 L BUN 8 L Creatinine 0.65 Estim Creat Clear Calc 184.8 Estimated GFR > 60 Random Glucose 85 Calcium 7.8 L Total Bilirubin 0.4 Direct Bilirubin 0.3 AST 25 ALT 50 H Alkaline Phosphatase 161 H Total Protein 5.3 L Albumin 2.8 L Discharge Plan Discharge Anticipated Discharge Date/Time: 12/01/23 09:52 Patient Disposition: Home, Self-Care Discharge Diagnosis: gallstone pancreatitis, choledocholithiasis, bile leak Referrals: Jonathan Estrada MD [Physician] - 2 Weeks Paz Berrios, DNP, CHILD SUPPORT AGENT, SHUT OFF WORKER-C [Primary Care Provider] - 1 Week Discharge Medications: New oxycodone 5 mg tablet 5 mg PO Q4H PRN (Reason: pain (scale score 7-10)) Qty: 24 0RF Rx Instructions: Partial Fill upon patient request. docusate sodium [Colace] 100 mg capsule 100 mg PO BID PRN (Reason: constipation) Qty: 30 0RF Continued ibuprofen 600 mg Tablet 600 mg PO DAILY PRN (Reason: Pain) Discharge Orders: Discharge Order (Routine); Ordered 12/04/23 Ordered By: Alexsander Bond Diet: Low fat, low cholesterol Activity on Discharge: No heavy lifting Stand Alone Forms: Patient Portal Discharge page Activity Restrictions/Additional Instructions: If the incision area is tender, you may apply an ice pack for short intervals (No more than 20 minutes on, followed by at least 20 minutes off). Do not apply heat. Do not use creams, lotions, or topical antibiotics. These can cause infection or allergic reaction. Ok to shower 24 hours after your surgery. You have steri strips (small white cloth strips) covering your incision- these will fall off ~1 week. Follow up in office with Dr. Estrada in 2 weeks. ([phone]) No heavy lifting (>10-20lbs) or strenuous activity! Call Your Doctor If: -Your temperature exceeds 101.5? F -You experience excessive pain or swelling -You have an unexpected reaction to medication -You have excessive bleeding -You experience continued vomiting/nausea -Your incision begins to separate -Your incision shows signs of infection such as increased redness, swelling, excessive pain, drainage (light blood or clear fluid is normal) or heat Care Plan Goals: full recovery from gallstone pancreatitis and gallbladder removal Health Concerns: gallstone pancreatitis choledocholithiasis Bile leak status post stent placement Plan of Treatment: Follow-up with Dr. De Leon from Gastroenterology in 8 weeks for removal of stent Assessment: see above Discharge Date/Time: 12/04/23 09:11
== END 2023-12-04 09:11 | disposition home or self-care (01) | DRG 263 ==
LOC: HO.ED 11-26 04:08 → HO.EDOVER 11-26 05:27 → HO.S3 11-26 07:54
PROVIDERS: Internal Medicine; Internal Medicine Gastroenterology; Physician Assistant Surgical; Surgery; Admitting Provider Internal Medicine; Emergency Provider Emergency Medicine; PCP Nurse Practitioner Family; Visit Provider Hospitalist
PROC: 0FT44ZZ Resection of Gallbladder, Percutaneous Endoscopic Approach (ICD-10-PCS; CPT 47562; principal; 2023-11-29 10:30)
PROC: 0F798DZ Dilation of Common Bile Duct with Intraluminal Device, Via Natural or Artificial Opening Endoscopic (ICD-10-PCS; CPT 43260; principal; 2023-12-02 14:50)
DX: K85.10 Biliary acute pancreatitis without necrosis or infection (principal); K80.50 Calculus of bile duct without cholangitis or cholecystitis without obstruction; Z68.43 Body mass index [BMI] 50.0-59.9, adult; E66.01 Morbid (severe) obesity due to excess calories; Z71.3 Dietary counseling and surveillance; K91.89 Other postprocedural complications and disorders of digestive system
CPT/HCPCS: 36415; 74176; 76705; 80048; 80053; 80076; 81001; 81025; 82248; 83690; 84478; 85025; 85027; 87086; 88304; 99285; 99499; C1726; C2617; C9113; J0131; J0665; J0690; J1100; J1170; J1610; J1885; J2250; J2270; J2371; J2405; J2704; J3010; J7120; Q9967

== ENCOUNTER → 2023-11-26 05:21 | Outpatient (BNV) | payer OTHER, SELFPAY | PROVIDERS: Admitting Provider Internal Medicine; Emergency Provider Emergency Medicine; PCP Nurse Practitioner Family; Visit Provider Internal Medicine Gastroenterology | DX: K85.90 Acute pancreatitis without necrosis or infection, unspecified (principal); R79.89 Other specified abnormal findings of blood chemistry | CPT/HCPCS: 99222 ==

== ENCOUNTER → 2023-11-26 05:21 | Outpatient (BNV) | payer OTHER, SELFPAY | PROVIDERS: Admitting Provider Internal Medicine; Emergency Provider Emergency Medicine; Visit Provider Internal Medicine | DX: Z90.49 Acquired absence of other specified parts of digestive tract (principal) | CPT/HCPCS: 99223; 99232; 99233; 99238; 99239 ==

== ENCOUNTER → 2023-11-26 05:21 | Outpatient (BNV) | payer OTHER, SELFPAY | PROVIDERS: Admitting Provider Internal Medicine; Emergency Provider Emergency Medicine; PCP Nurse Practitioner Family; Visit Provider Internal Medicine Gastroenterology | DX: K85.90 Acute pancreatitis without necrosis or infection, unspecified (principal); R79.89 Other specified abnormal findings of blood chemistry | CPT/HCPCS: 43274; 99232 ==

== ENCOUNTER → 2023-11-26 05:21 | Outpatient (BNV) | payer OTHER, SELFPAY | PROVIDERS: Admitting Provider Internal Medicine; Emergency Provider Emergency Medicine; PCP Nurse Practitioner Family; Visit Provider Surgery | DX: Z90.49 Acquired absence of other specified parts of digestive tract (principal); K85.90 Acute pancreatitis without necrosis or infection, unspecified | CPT/HCPCS: 47563; 99024; 99222; 99499 ==

== ENCOUNTER 2023-12-16 09:50 | Outpatient (AMB) | payer OTHER, SELFPAY ==
--- NOTE | 2023-12-16 09:53 | MHC.OFFVIS ---
Intake Vital Signs 12/16/23 10:00 BP 119/69 Blood Pressure Location Lt brachial Position Standing Pulse 123 H Intake Visit Reasons: s/p laparoscopic cholecystectomy Intake Note: This patient presents for a post-op assessment status post laparoscopic cholecystectomy. Pt c/o; reports no complaints at this time. Photographer Motion Picture Required: No Accompanied by: Other Relationship Allergies No Known Allergies Allergy (Verified 11/25/23 23:23) HPI s/p laparoscopic cholecystectomy HPI Details 33-year-old female here for follow-up after laparoscopic cholecystectomy. She would undergone laparoscopic cholecystectomy as an inpatient for acute cholecystitis with Dr. Lozano last 11/29/2023. She tolerated procedure well. However, she developed a bile leak from the cystic duct and underwent ERCP with stenting on December 02, 2023. She was discharged thereafter She has been doing very well at home. She is good oral intake. [facility] Medical History (Updated 12/16/23 @ 10:05 by Jonathan Estrada MD) Morbid obesity No known health problems Surgical History History of laparoscopic cholecystectomy (~11/29/23) Social History Household Members: None Housing: Condominium Do you presently have visiting nurse or other home services: No Comment: counts correct Patient Tobacco Use Status: Never used Tobacco Second Hand Smoke Exposure: No service: No Review of Systems Const Denies chills and Denies fever(s) Card Denies chest pain, Denies dyspnea and Denies dyspnea on exertion Resp Denies cough, Denies dyspnea and Denies dyspnea on exertion GI Denies hematochezia and Denies change in bowel habits Denies hematuria Musc Denies back pain and Denies limited range of motion Neuro Denies focal weakness and Denies convulsions Psych Denies depression and Denies mood swings Physical Exam Vital Signs: Last Vital Signs Pulse 123 H 12/16/23 10:00 BP 119/69 12/16/23 10:00 Const Other: Morbidly obese General: comfortable and no acute distress Eyes Other: Nonicteric GI Other: Soft, no guarding, no rebound, incisions well healed Assessment & Plan Assessment & Plan (1) S/P laparoscopic cholecystectomy: Code(s): Z90.49 - Acquired absence of other specified parts of digestive tract Plan: She is doing very well postoperatively. All incisions are well healed. I advised her to avoid lifting anything more than 20 lb for about 2 more weeks. She is to follow up with Dr. De Leon to have her stent eventually removed. Follow up on a p.r.n. basis here Coding Level of Care Code Global (87156) Diagnoses S/P laparoscopic cholecystectomy Z90.49
[2023-12-16 10:00] VITALS: BP 119/69; PULSE 123
== END 2023-12-16 10:08 | disposition home or self-care (01) ==
PROVIDERS: PCP Nurse Practitioner Family; Visit Provider Surgery
DX: Z90.49 Acquired absence of other specified parts of digestive tract (principal)
CPT/HCPCS: 99024

== ENCOUNTER → 2023-12-16 09:50 | Outpatient (BNVA) | payer OTHER, SELFPAY | PROVIDERS: PCP Nurse Practitioner Family; Visit Provider Surgery ==

== ENCOUNTER 2024-02-17 09:18 | Day surgery (SDC) | payer OTHER, SELFPAY ==
[2024-02-15 12:37] VITALS: BMI 56.6
--- NOTE | 2024-02-15 14:42 | HO.ANESPROP2 ---
HPI - Anesthesia Eval Consult details Narrative: 33yo F for ERCP s/p lap césar then ERCP 11/2023 both with GA-ETT 7 during [facility] [place] admission hospital course: patient presented with abdominal pain and workup revealed gallstone pancreatitis, choledocholithiasis, with lipase level greater than 3000. Over the course of hospitalization LFTs trended down along with lipase and thus did not need ERCP and eventually underwent cholecystecomy. Lipase level is now normal, and LFTs continue to trend down, but patient noted to have persistent pain and unable to tolerate diet, therefore evaluated by Gastroenterology and underwent ERCP that showed bile leak from cystic duct underwent stent placement, a possible filling defect was noted a sphincterotomy was performed and a basket was used to sweep the duct but nothing was retrieved, cholangiogram did not reveal any filling defects but revealed the bile leak, post procedure diet was advanced and she is tolerating well recommend low-fat diet and advised weight loss. PMFSH Active Problems Active Problems: All Active Problems S/P laparoscopic cholecystectomy (Acute) Morbid obesity (Acute) Past Medical History Medical History Morbid obesity No known health problems Family History Family history of problems with anesthesia: No Surgical History Surgical History S/P ERCP (12/02/23) History of laparoscopic cholecystectomy (~11/29/23) History of Problems with Anesthesia: No Social History Social History Household Members: None Housing: Condominium Are you a primary resident care aid to a significant other at home: No Do you presently have visiting nurse or other home services: No Comment: counts correct Patient Tobacco Use Status: Never used Tobacco Second Hand Smoke Exposure: No Advance Directives Date on File: 12/07/23 service: No Meds Allergies Allergy/AdvReac Type Severity Reaction Status Date / Time No Known Allergies Allergy Verified 02/15/24 12:40 Home Medications ?Medication ?Instructions ?Recorded ?Confirmed ?Last Taken ?Type No Known Home Meds 02/15/24 02/15/24 Unknown History Exam Height,Weight and Vital Signs: Height 5 ft 5 in Weight 154.221 kg Pertinent Lab Results Pertinent Lab Results: Laboratory Tests 12/02/23 12/04/23 08:03 06:03 WBC 5.4 Hgb 10.4 L Hct 31.9 L Plt Count 194 Sodium 140 Potassium 3.7 Chloride 104 Carbon Dioxide 29 BUN 8 L Creatinine 0.65 Assessment and Plan Assessment Anesthesia Assessment: Chart Reviewed Final Anesthetic Review Family History of Problems with Anesthesia: No History of Problems with Anesthesia: No
[2024-02-17 10:00] VITALS: BP 129/73; PULSE 82; RESP 18; TEMP 36.1; O2SAT 97
[2024-02-17 10:05] VITALS: BMI 56.6
[2024-02-17 10:07] LABS: UPreg QC Valid YES; Urine Pregnancy NEGATIVE (NEGATIVE)
[2024-02-17] MEDS: Lactated Ringers 1,000 ML 100 ML IVCONT (10:20)
--- NOTE | 2024-02-17 10:44 | MHC.SHP ---
Pre-Procedural Eval Section A - 24 Hr Update-Section A only Date of Service: 02/17/24 Section B - Complete if H&P > 30 days Chief Complaint: Encounter for fitting and adjustment of other fabián Details of Present Illness: stent removal Relevant Family History (Specify if Yes): No Relevant Social History: None Present Medications: see Short Stay Collaborative assessment Medical History: Significant History (gallstones, obesity ) History of Previous Operations: Relevant previous surgery/procedure and date(s) (S/P ERCP (12/02/23) History of laparoscopic cholecystectomy (~11/29/23)) Allergies: Allergies Allergy/AdvReac Type Severity Reaction Status Date / Time No Known Allergies Allergy Verified 02/15/24 12:40 Review of Systems Sugical H&P ROS: Negative: Constitution, Cardiovascular, Respiratory, Neurological, Psychiatric, Hem-Onc, Allergic/Immunologic, Gastrointestinal, Genitourinary, Musculoskeletal, Integumentary, Endocrine and Eyes/Ears/Nose/Throat Exam Surgical H&P Exam: Normal: HEENT, Normal: Heart, Normal: Lungs, Normal: Extremities, Normal: Abdomen, Normal: Skin and Normal: Neurological Plan Diagnosis/Plan: Unchanged I have reviewed the history and physical and performed a pertinent physical examination on my patient. No changes have occurred unless specified. upper endoscopy with stent removal Time Spent With Patient Time: Total time managing care of this patient today ____ minutes.
--- NOTE | 2024-02-17 12:07 | W.PM.OPN ---
Operative Note Operative Note Date of Service: 02/17/24 Narrative: Procedure Description: EGD Indication: stent removal using side viewing scope Anesthesia: MAC FLEXIBLE TRANSORAL UPPER GASTROINTESTINAL ENDOSCOPY UPPER ENDOSCOPY Consent: Indications for the procedure and potential complications of bleeding, perforation, reaction to medications and missed diagnosis were discussed with the patient and informed consent was obtained. Instrument: Side viewing ERCP scope Monitoring: Vital signs and clinical assessment, continuous EKG monitoring, Pulse oximetry, Carbon Dioxide monitoring and blood pressure monitoring were done throughout the procedure. Procedure: The patient was placed in the left lateral decubitis position and pre-procedure medications were administered and a bite block was placed. The endoscope was inserted into the mouth and advanced under direct vision to the third part of duodenum. Findings and interventions are described below. Findings: Limited views up till duodenum which appeared normal. The previously placed stent was noted with good biliary drainage. This was snared and removed from the duct with good bilious flow noted thereafter. Intervention:biliary stent removal Impression/Findings: stent removal PLAN: Regular diet today, if any worsening abdominal pain, fever etc call my office TIANA
[2024-02-17 12:11] VITALS: BP 110/60; PULSE 88; RESP 16; TEMP 36.4; O2SAT 97
--- NOTE | 2024-02-17 12:14 | P.CONAN_ITS ---
[facility] Active Problems Active Problems: All Active Problems S/P laparoscopic cholecystectomy (Acute) Morbid obesity (Acute) Past Medical History Medical History Morbid obesity No known health problems Functional capacity: independent ambulation Family History Family history of problems with anesthesia: No Surgical History Surgical History S/P ERCP (12/02/23) History of laparoscopic cholecystectomy (~11/29/23) History of Problems with Anesthesia: No Social History Social History Household Members: None Housing: Condominium Are you a primary emergency care attendant to a significant other at home: No Do you presently have visiting nurse or other home services: No Comment: counts correct Patient Tobacco Use Status: Never used Tobacco Second Hand Smoke Exposure: No Use of substances other than those prescribed or required for medical reasons: No Have you been hit, kicked, punched, or otherwise hurt by someone within the past year? If so, by whom?: No Are you DNR?: No Advance Directives: No Advance Directives Information Provided: Yes Advance Directives on File: Yes Advance Directives Date on File: 12/07/23 Recently lost weight without trying: No Nutrition Risks: No Nutritional Risk Patient : No FDLMP: 02/01/2024 : No Poor oral hygiene: No service: No Meds Allergies Allergy/AdvReac Type Severity Reaction Status Date / Time No Known Allergies Allergy Verified 02/15/24 12:40 Active Medications: Current Medications Lactated Ringer's (Lr) 1,000 mls @ 100 mls/hr IVCONT .Q10H GEORGETTE Last Admin: 02/17/24 10:20 Dose: 100 mls/hr Home Medications ?Medication ?Instructions ?Recorded ?Confirmed ?Last Taken ?Type No Known Home Meds 02/15/24 02/15/24 Unknown History Exam Height,Weight and Vital Signs: Height 5 ft 5 in Weight 154.221 kg Last Vital Signs Temp 97.6 F 02/17/24 12:11 Pulse 88 02/17/24 12:11 Resp 16 02/17/24 12:11 BP 110/60 02/17/24 12:11 Pulse Ox 97 05/02/24 12:11 O2 Del Method Room Air 02/17/24 12:11 Pertinent Lab Results Pertinent Lab Results: Laboratory Tests 02/17/24 Unknown Urine Test NEGATIVE Airway Mallampati Class: II TM Dist: >3cm Neck ROM: Full Heart: RRR Lungs: CTA Assessment and Plan Assessment Anesthesia Assessment: Anesthesia Plan Discussed Final Anesthetic Review Family History of Problems with Anesthesia: No History of Problems with Anesthesia: No ASA Class: II Final Preanesthetic Review: Meds/Allgs Chart Reviewed, Consent Obtained/Reviewed and Anes Risks/Benef Reviewed Patient Risk: Intermediate Procedure Risk: Low Anesthetic Plan Anesthetic Plan: MAC: Disposition: Standard PACU
[2024-02-17 12:27] VITALS: BP 122/69; PULSE 66; RESP 18; TEMP 36.4; O2SAT 100
== END 2024-02-17 12:50 | disposition home or self-care (01) ==
PROVIDERS: Nurse Practitioner; PCP Nurse Practitioner Family; Visit Provider Internal Medicine Gastroenterology
PROC: (CPT 43260; principal; 2024-02-17 13:10)
DX: Z46.59 Encounter for fitting and adjustment of other gastrointestinal appliance and device (principal); Z90.49 Acquired absence of other specified parts of digestive tract
CPT/HCPCS: 43247; 81025; J2704

== ENCOUNTER → 2024-02-17 09:18 | Outpatient (BNV) | payer OTHER, SELFPAY | PROVIDERS: PCP Nurse Practitioner Family; Visit Provider Internal Medicine Gastroenterology | DX: Z46.59 Encounter for fitting and adjustment of other gastrointestinal appliance and device (principal) | CPT/HCPCS: 43247 ==

== ENCOUNTER → 2024-08-29 07:40 | Outpatient (BNVA) | payer OTHER, SELFPAY | PROVIDERS: PCP Nurse Practitioner Family; Visit Provider Physician Assistant Surgical ==

== ENCOUNTER 2024-09-01 07:54 | Outpatient (AMB) | payer OTHER, SELFPAY ==
--- NOTE | 2024-09-01 08:05 | MHC.OFFVISWM ---
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: Details: Start time: 8.00am, End time: 8.45am ?I spent 40 minutes speaking with the patient on the phone plus an additional 5 minutes reviewing and updating records for a total of 45 minutes HPI Comments Details: Previous weight loss efforts: BRIANA Zheng Wakes up: 6am, Sleeps: 9pm Breakfast: 9am (egg whites with cheese, spinach and turkey burger) Lunch: 1pm (turkey sandwich, soup, salad) Dinner: 8pm (cereal) Snacks: none Exercise: Home stationary bike Fluids: Coffee: 1-2/day (cream), iced tea: Crystal light, soda: none, juice: none, ETOH: rarely PFSH Medical History (Updated 09/01/24 @ 08:07 by Frederic Gatica MD) Back pain Insomnia Morbid obesity No known health problems Surgical History S/P ERCP (12/02/23) History of laparoscopic cholecystectomy (~11/29/23) Family History (Updated 08/29/24 @ 08:13 by Katie Severino CMA) Mother Breast cancer Thyroid condition Depression affecting Father Family history unknown Social History Household Members: None Housing: Condominium Are you a primary career representative to a significant other at home: No Do you presently have visiting nurse or other home services: No Comment: counts correct Patient Tobacco Use Status: Never used Tobacco Second Hand Smoke Exposure: No Advance Directives Date on File: 12/07/23 service: No Telehealth Telehealth Telehealth Platform: Telephone Location of provider rendering services: practice address Location of patient: address on file Patient Identification confirmed using: Name, : Yes Telehealth method: voice only Patient verbally consented to treatment: Yes Patient verbally consented to billing insurance company: Yes Patient informed of any privacy concerns related to visit: Yes Minutes spent on Phone/Video with Pt.: 45 Assessment & Plan Assessment & Plan (1) Morbid obesity: Code(s): E66.01 - Morbid (severe) obesity due to excess calories Category: Medical Plan: 1.? Plan for lap sleeve gastrectomy. If diaphragmatic or ventral hernias are present at time of surgery, these will be repaired laparoscopically as well. Risks and complications include possible conversion to an open procedure, anastomotic leak, bleeding requiring transfusion, small bowel obstruction, , DVT and pulmonary embolism, cardiac, or pulmonary complications, as termite renewal inspector complications such as anastomotic ulcer, insufficient weight loss and vitamin deficiencies. I emphasized the importance of close follow-up, adherence to instructions and good communication. 2. You will receive a link of our software rogelio to generate an individualized nutritional and exercise plan specific for you. Please send me a screenshot of the plans you will generate Meal to include lean meat (beef, fish, pork, turkey, chicken), or north korean yogurt, or egg whites, or beans with a salad with olive oil and fruits (berries, pears, apples, kiwi). Avoid salt, breads, potatoes, rice, pasta, desserts. ?3. If you choose shakes, each shake would be drunk slowly, like coffee in a period of 2 hours. ?4. If you choose bars, cut each bar in 4 pieces and eat each piece in 30min ?to make each bar last 2 hours. ?5. I emphasized the importance of measuring accurately the food portion and measure it when serving the food in plate ?6. The meal portions include a specific number of forks of meat and salad. You always eat the meat portion but you can replace up to half of salad/vegetables portion with rice, potatoes or pasta, or a fruit ?if you like. The less you do it the better weight loss will be. ?7. One full-size fork is what it can be scooped on the fork without falling aside and not what can be bit with the fork. Use regular forks like those you find in a typical restaurant. ?8.? Please send me weight measurements as soon as possible and then once a week. Always include your diet and exercise plan. 9. The best choice would be to purchase a stationary bike, elliptical or treadmill at home that can track calories. Let me know if you do so I can give you an exercise plan. ?10.?It is important of avoiding and for at least 18 months postoperatively and has been discussed at the infosession. ?11. Goal is to lose at least 1.5-2lbs per week ?12. Goal to lose 10% of your weight before surgery, which is about 34lbs. Ultimate weight goal: 303lbs before surgery 13. Please follow the diet plan exactly without any change. If you don't like something about the plan or you feel hungry you need to communicate with me so I can help you revise the plan. You should not change the plan yourself. 14. To be scheduled for EGD to assess the stomach's anatomy. The possibility of biopsies was discussed. Patient needs to avoid use of NSAIDs and aspirin for 1 week prior to EGD. Risks of perforation and bleeding was discussed with the patient. This will be an outpatient procedure with IV sedation. Orders: Orders Insulin Today E66.01 - Morbid (severe) obesity due to excess calories H Pylori Breath Test Today E66.01 - Morbid (severe) obesity due to excess calories Complete Blood Count Auto Diff Today E66.01 - Morbid (severe) obesity due to excess calories Lipid Panel Today E66.01 - Morbid (severe) obesity due to excess calories Zinc Today E66.01 - Morbid (severe) obesity due to excess calories TSH reflex Free T4 Today E66.01 - Morbid (severe) obesity due to excess calories Vitamin D 25-OH Total Today E66.01 - Morbid (severe) obesity due to excess calories FL upper GI w air Today E66.01 - Morbid (severe) obesity due to excess calories Hemoglobin A1c Today E66.01 - Morbid (severe) obesity due to excess calories IRON PROFILE Today E66.01 - Morbid (severe) obesity due to excess calories Comprehensive Met. Panel Today E66.01 - Morbid (severe) obesity due to excess calories Vitamin B12 and Folate Today E66.01 - Morbid (severe) obesity due to excess calories C Reactive Protein Today E66.01 - Morbid (severe) obesity due to excess calories Vitamin B1 Today E66.01 - Morbid (severe) obesity due to excess calories Vitamin A Today E66.01 - Morbid (severe) obesity due to excess calories Ferritin Today E66.01 - Morbid (severe) obesity due to excess calories US abdomen comp w elastography Today E66.01 - Morbid (severe) obesity due to excess calories XR chest 2V Today E66.01 - Morbid (severe) obesity due to excess calories ECG 12 lead EKG Today E66.01 - Morbid (severe) obesity due to excess calories Referrals Behavioral Health Referral E66.01 - Morbid (severe) obesity due to excess calories Nutrition/Dietitian Referral E66.01 - Morbid (severe) obesity due to excess calories
[2024-09-01 08:19] VITALS: BMI 56.1
== END 2024-09-01 08:48 | disposition home or self-care (01) ==
LOC: HO.HBS 07:54
PROVIDERS: PCP Nurse Practitioner Family; Visit Provider Surgery
DX: E66.01 Morbid (severe) obesity due to excess calories (principal)
CPT/HCPCS: 99204

== ENCOUNTER → 2024-09-01 07:54 | Outpatient (BNVA) | payer OTHER, SELFPAY | PROVIDERS: PCP Nurse Practitioner Family; Visit Provider Surgery ==

== ENCOUNTER 2024-09-07 07:02 | Outpatient (REF) | payer OTHER, SELFPAY ==
--- NOTE | 2024-09-07 07:07 | ECG_ITS ---
Test Reason : E66.01 - Morbid (severe) obesity due to excess calories Blood Pressure : / mmHG Vent. Rate : 078 BPM Atrial Rate : 078 BPM P-R Int : 114 ms QRS Dur : 078 ms QT Int : 388 ms P-R-T Axes : 051 067 072 degrees QTc Int : 442 ms Normal sinus rhythm with sinus arrhythmia Normal ECG No previous ECGs available Referred By: Frederic Gatica Electronically Signed By:LANDRY FOLEY MD
[2024-09-07 07:21] LABS: MANUAL DIFF FLAG NO
[2024-09-07 07:34] LABS: Basophils Percent Auto 0.5 % (0-2); Eosinophils Absolute Auto 0.1 X10*3/uL (0.0-0.4); Hematocrit 39.9 % (37.0-47.0); Hemoglobin 13.3 g/dl (12.0-16.0); Imm Gran Abs Auto 0.02 X10*3/uL (0.00-0.03); Imm Gran Pct Auto 0.3 % (0.0-0.4); Lymphocytes Absolute Auto 1.8 X10*3/uL (1.2-4.9); Lymphocytes Percent Auto 28.7 % (20-40); Mean Corpuscular HGB Conc 33.3 g/dl (31.0-35.0); Mean Corpuscular Hemoglobin 29.1 pg (27.0-33.0); Mean Corpuscular Volume 87.3 fL (80.0-98.0); Mean Platelet Volume 10.5 fL (9.4-12.3); Monocytes Absolute Auto 0.3 X10*3/uL (0.1-1.2); Monocytes Percent Auto 5.2 % (2-11); Neutrophils Absolute Auto 4.1 x10*3/uL (2.0-8.3); Neutrophils Percent Auto 64.3 % (45-73); Platelet Count 225 X10*3/uL (160-400); Red Blood Count 4.57 X10*6/uL (4.20-5.50); Red Cell Distribution Width 12.5 % (11.0-16.0); White Blood Count 6.3 X10*3/uL (4.8-10.8)
[2024-09-07 07:44] LABS: Estimated Average Glucose 94 mg/dL; Hemoglobin A1C 106.8967 umol/L; Hemoglobin A1c % 4.9 % (<6.0); Total Hemoglobin (HGBA1C) 3544.2036 umol/L
[2024-09-07 08:01] LABS: Alanine Aminotransferase 29 U/L (0-31); Albumin Level 3.9 g/dL (3.5-5.0); Alkaline Phosphatase 76 U/L (39-117); Anion Gap 12 (12-20); Aspartate Amino Transferase 28 U/L (5-31); Bilirubin Total 0.6 mg/dL (0.0-1.0); Blood Urea Nitrogen 14 mg/dL (9-16); C Reactive Protein 0.96 mg/dL (< or = 0.50); Calcium 9.8 mg/dL (8.4-10.2); Carbon Dioxide 27 mmol/L (22-29); Chloride 104 mmol/L (96-108); Cholesterol 125 mg/dL (<200); Estimated Glomerular Filt Rate > 60; Glucose Random 97 mg/dL (60-115); HDL Cholesterol 41 mg/dL (>40); Iron 78 mcg/dL (30-160); LDL Cholesterol Calculated 71 mg/dL (<100); Percent Iron Saturation 32 % (15-50); Potassium 4.4 mmol/L (3.3-5.1); Sodium 139 mmol/L (135-145); Total Iron Binding Capacity 244 mcg/dL (228-428); Total Protein 6.9 g/dL (6.5-8.0); Triglycerides 67 mg/dL (<150); Unsaturated Iron Binding 166 ug/dL
[2024-09-07 08:30] LABS: Ferritin 50 ng/mL (10-122); TSH reflex Free T4 1.87 uIU/mL (0.32-4.0); Vitamin D 25-OH Total 25.8 ng/mL (>30)
[2024-09-07 08:34] LABS: Folate 11.6 ng/mL (> or = 4.0); Vitamin B12 527 pg/mL (200-900)
[2024-09-07 10:33] LABS: Insulin 7 uU/mL (2-29)
[2024-09-12 02:53] LABS: Zinc 74 mcg/dL (60-130)
[2024-09-13 16:02] LABS: Vitamin B1 6 nmol/L (8-30)
[2024-09-14 06:38] LABS: Vitamin A 40 mcg/dL (38-98)
== END 2024-09-07 07:03 | disposition home or self-care (01) ==
LOC: HO.XRAY 07:02
PROVIDERS: PCP Nurse Practitioner Family; Visit Provider Surgery
DX: E66.01 Morbid (severe) obesity due to excess calories (principal); Z13.1 Encounter for screening for diabetes mellitus
CPT/HCPCS: 36415; 71046; 80053; 80061; 82306; 82607; 82728; 82746; 83036; 83525; 83540; 84425; 84443; 84590; 84630; 85025; 86140; 93005

== ENCOUNTER → 2024-09-07 07:07 | Outpatient (BNV) | payer OTHER, SELFPAY | PROVIDERS: PCP Nurse Practitioner Family; Visit Provider Internal Medicine Cardiovascular Disease | DX: E66.01 Morbid (severe) obesity due to excess calories (principal) | CPT/HCPCS: 93010 ==

== ENCOUNTER → 2024-09-19 09:32 | Outpatient (AMB) | payer OTHER, SELFPAY ==
--- NOTE | 2024-09-19 09:15 | A.OFFWM_ITS ---
Intake Intake Visit Reasons: VIDEO BH Intake Allergies No Known Allergies Allergy (Verified 09/01/24 08:05) [facility] Medical History (Updated 09/16/24 @ 09:45 by Frederic Gatica MD) Back pain Insomnia Morbid obesity No known health problems Surgical History (Updated 09/06/24 @ 00:03 by Gem Tellez) S/P ERCP (12/02/23) History of laparoscopic cholecystectomy (~11/29/23) Family History (Updated 08/29/24 @ 08:13 by Katie Severino CMA) Mother Breast cancer Thyroid condition Depression affecting Father Family history unknown Social History Household Members: None Housing: Condominium Are you a primary md do resident urgent care to a significant other at home: No Do you presently have visiting nurse or other home services: No Comment: counts correct Patient Tobacco Use Status: Never used Tobacco Second Hand Smoke Exposure: No Advance Directives Date on File: 12/07/23 service: No Behavioral Health Assessment Weight Management Therapy Therapy Notes Details PT is a 33 years old female, who presents for initial visit to complete BH assessment as part of surgical weight loss program. Presenting Concerns Referral Source WMP-Provider Reason for referral Completion of behavioral health assessment as part of process for weight-loss surgery. Precipitating Event Obesity Living Situation Current Living Situation Own At risk of losing current housing? No Satisfied with current living situation? Yes Comments PT lives alone, with 2 cats. Food/Weight/Diet Expectations of change Initial goal is to lose 10% of her weight before surgery, which is about 34lbs. Ultimate weight goal: 303lbs before surgery PT initial goal on 09/01/2024 was 337Lbs, most recent weight 338Lbs. PT is implementing the following: Current meal plan: 2 shakes, 2 bars, 1 meal (12F/12F) Exercise plan: 5 days at week for 400Calories on stationery bike at home. 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 She tend to skip meals, some days she would have 1-2 meals and others it feels she eats constantly the whole day. PT reports she tends to reward herself with food or pick certain foods based on her emotions, this often happens with Maltese. Also notices she tends to eat more when depressed/stressed or anxious and makes the worse food decisions. Most of the time she would have breakfast then nothing else until dinner, and by that time she was very hungry and her choices were fast food or take out and at times bigger portions. Example of meals before starting the program: Breakfast: very consistent. Eggs, sausage, cheese with cauliflower and sweet potatoes. Lunch: a sandwich with a soup Dinner: mostly take out. often would be Maltese food. Snacks: apples or popcorn Drinks/Liquids: before was doing 4 lattes at day with almond milk and mocha/caramel flavor. Currently does 1 coffee at day w/ 2 creamers. Drinks marcos cristofer light and lots of water at day. History/Relationship with weight PT reports she has always been overweight, in middle school she was already 220Lbs. then 300Lbs in HS. In the last 10 years, the patient's Lowest weight was 307Lbs and highest 390Lbs. History/Relationship with dieting Walking with Meal prep, lost 80Lbs in 1 year. Carolyn Eagle, BRIANA. With these she lost 10-Lbs over couple months but after losing motivation gained all the weight back. Binge Eating Do you frequently eat large amounts of food in short periods of time, not feeling physically hungry? No Do you feel out of control when you eat a large amount of food in a short period of time? No Do you eat large amounts of food rapidly and typically alone? No Night Eating Do you wake up at least once during the night to eat? No If you wake up in the night, do you find that it is necessary to eat something in order to fall back asleep? No Do you have little or no appetite in the morning and feel very hungry in the evening, often overeating between dinner and when you go to bed? Yes Social History Family history and relationship PT is single. Parents when she was young. She has 1 brother who is 7 years youngest, they're close and he's very supportive. No relationship with her father since age 18. She has a variable relationship with her mother. 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 Developmental history and status None. Social support Brother. Community support Some friends. Gnosticism/Spirituality Parents were Temple and she attended mormonism school but she is not affiliated to any. Cultural/Ethnic information . Born and raised in [place]. Legal Involvement and History Current or historical involvement with the legal system? None reported. Education Highest grade completed HS. Some college. Preferred learning style Learn by doing and Visual Currently enrolled in educational program? No Interested in further educational program? 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 No Meaningful activities Painting, yogesh, travel, reading. Financial Situation Describe current financial situation Comfortable and Occasional struggle Financial assistance? None Service Service? No Mental Health and Addiction Treatment Psychiatric history Went to therapy as a teenager. Questionnaires PHQ-9 Over the last 2 weeks, how often have you been bothered by any of the following problems? 1. Little interest or pleasure in doing things: not at all 2. Feeling down, depressed, or hopeless: not at all 3. Trouble falling or staying asleep, or sleeping too much: not at all 4. Feeling tired or having little energy: not at all 5. Poor appetite or overeating: several days 6. Feeling bad about yourself - or that you are a failure or have let yourself or your family down: not at all 7. Trouble concentrating on things, such as reading the newspaper or watching television: not at all 8. Moving or speaking so slowly that other people could have noticed. Or the opposite - being so fidgety or restless that you have been moving around a lot more than usual: not at all 9. Thoughts that you would be better off or of hurting yourself in some way: not at all Total score: 1 Depression Screening Interpretation: Negative (scores from 08/29 with new PT pack.) Depression Screening Done: Yes Source: Developed by Drs. Nelson Ahumada, Ania Domínguez, Vinod Hinojosa and colleagues, with an educational jelena from [employer]. Assessment & Plan Assessment & Plan (1) Adjustment disorder: Code(s): F43.20 - Adjustment disorder, unspecified (2) Inappropriate diet and eating habits: Code(s): Z72.4 - Inappropriate diet and eating habits Plan PT will return in 2-4 weeks to finish assessment. she will also need support working on habit building and emotional eating. BES will be reviewed at next visit, a new PHQ-9 will be administered again before assessment is finalized. Next rogelio: 10/09 @1pm, TH. 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 so we changed to regular phone call) Location of provider rendering services: other Location of patient: other ([facility], [place], [place]) Patient Identification confirmed using: Name, : Yes Telehealth method: voice only Patient verbally consented to treatment: Yes Patient verbally consented to billing insurance company: Yes Patient informed of any privacy concerns related to visit: Yes Minutes spent on Phone/Video with Pt.: 55 Coding Level of Care Code New Pt Tele Psy Diag Eval (67808) Patient Type New Diagnoses Adjustment disorder F43.20 Inappropriate diet and eating habits Z72.4 Time Spent (min) 55
== END ==
LOC: HO.HBST 09:32
PROVIDERS: PCP Nurse Practitioner Family; Visit Provider Counselor Mental Health
DX: F43.20 Adjustment disorder, unspecified (principal); Z72.4 Inappropriate diet and eating habits
CPT/HCPCS: 90791

== ENCOUNTER 2024-09-20 06:57 | Day surgery (SDC) | payer OTHER, SELFPAY ==
[2024-09-18 07:32] VITALS: BMI 56.1
--- NOTE | 2024-09-19 08:32 | P.CONAN_ITS ---
Documented by User: Patricia Rankin NP 09/19/24 08:32 HPI - Anesthesia Eval Consult details Narrative: 33yo F for Upper Endoscopy PMFSH Active Problems Active Problems: All Active Problems Vitamin B1 deficiency (Acute) Back pain (Acute) Insomnia (Acute) S/P laparoscopic cholecystectomy (Acute) Morbid obesity (Acute) Past Medical History Medical History Back pain Insomnia Morbid obesity No known health problems Family History Family History Mother Breast cancer Thyroid condition Depression affecting Father Family history unknown Family history of problems with anesthesia: No Surgical History Surgical History S/P ERCP (12/02/23) History of laparoscopic cholecystectomy (~11/29/23) History of Problems with Anesthesia: No Social History Social History Household Members: None [facility] Are you a primary coronary care unit nurse to a significant other at home: No Do you presently have visiting nurse or other home services: No Comment: counts correct Patient Tobacco Use Status: Never used Tobacco Second Hand Smoke Exposure: No Use of substances other than those prescribed or required for medical reasons: No Are you DNR?: No Advance Directives: No Advance Directives Information Provided: Yes Advance Directives on File: No Advance Directives Date on File: 12/07/23 Nutrition Risks: No Nutritional Risk service: No Meds Allergies Allergy/AdvReac Type Severity Reaction Status Date / Time No Known Allergies Allergy Verified 09/01/24 08:05 Home Medications ?Medication ?Instructions ?Recorded ?Confirmed ?Last Taken ?Type ibuprofen 200 mg capsule 200 mg PO Q6H PRN 08/29/24 09/01/24 Unknown History melatonin 5 mg capsule mg PO .prn 08/29/24 09/01/24 Unknown History Exam Height,Weight and Vital Signs: Height 5 ft 5 in Weight 152.861 kg Assessment and Plan Assessment Anesthesia Assessment: Chart Reviewed Final Anesthetic Review Family History of Problems with Anesthesia: No History of Problems with Anesthesia: No Documented by User: Karen Negrete MD 09/20/24 08:17 [facility] Active Problems Active Problems: All Active Problems Vitamin B1 deficiency (Acute) Back pain (Acute) Insomnia (Acute) S/P laparoscopic cholecystectomy (Acute) Morbid obesity (Acute) Denies ALCIRA Past Medical History Medical History Back pain Insomnia Morbid obesity No known health problems Family History Family History Mother Breast cancer Thyroid condition Depression affecting Father Family history unknown Family history of problems with anesthesia: No Surgical History Surgical History S/P ERCP (12/02/23) History of laparoscopic cholecystectomy (~11/29/23) History of Problems with Anesthesia: No Social History Social History Household Members: None Housing: Condominium Are you a primary coronary care unit nurse to a significant other at home: No Do you presently have visiting nurse or other home services: No Comment: counts correct Patient Tobacco Use Status: Never used Tobacco Second Hand Smoke Exposure: No Use of substances other than those prescribed or required for medical reasons: No Are you DNR?: No Advance Directives: No Advance Directives Information Provided: Yes Advance Directives on File: No Advance Directives Date on File: 12/07/23 Nutrition Risks: No Nutritional Risk service: No Meds Allergies Allergy/AdvReac Type Severity Reaction Status Date / Time No Known Allergies Allergy Verified 09/01/24 08:05 Home Medications ?Medication ?Instructions ?Recorded ?Confirmed ?Last Taken ?Type ibuprofen 200 mg capsule 200 mg PO Q6H PRN 08/29/24 09/01/24 Unknown History melatonin 5 mg capsule mg PO .prn 08/29/24 09/01/24 Unknown History Exam Height,Weight and Vital Signs: Height 5 ft 5 in Weight 152.861 kg Vital Signs Temp Pulse Resp BP Pulse Ox O2 Del Method 09/20/24 07:55 97.5 F 82 16 108/50 L 97 Room Air Pertinent Lab Results Pertinent Lab Results: Lab Results 09/20/24 Range/Units 07:35 Urine Test NEGATIVE (NEGATIVE) Airway Mallampati Class: II TM Dist: >3cm Neck ROM: Full Loose/Missing/Broken Teeth: No Heart: RRR Lungs: CTAB Assessment and Plan Assessment Anesthesia Assessment: Anesthesia Plan Discussed and Chart Reviewed Final Anesthetic Review Family History of Problems with Anesthesia: No History of Problems with Anesthesia: No NPO: Yes ASA Class: III Final Preanesthetic Review: No Changes in Pt Med Stat, Meds/Allgs Chart Reviewed, Consent Obtained/Reviewed and Anes Risks/Benef Reviewed Patient Risk: Intermediate Procedure Risk: Low Assessment/Block/Sedation in SS: Assess/Block/Sedation-SS Anesthetic Plan Anesthetic Plan: TIVA Disposition: Standard PACU
[2024-09-20 07:34] VITALS: BMI 55.8
[2024-09-20 07:39] VITALS: BMI 55.8
[2024-09-20 07:55] VITALS: BP 108/50; PULSE 82; RESP 16; TEMP 36.4; O2SAT 97
[2024-09-20] MEDS: Lactated Ringers 1,000 ML 80 ML IVCONT (08:02)
[2024-09-20 08:07] LABS: UPreg QC Valid YES; Urine Pregnancy NEGATIVE (NEGATIVE)
--- NOTE | 2024-09-20 08:13 | MHC.SHP ---
Pre-Procedural Eval Section A - 24 Hr Update-Section A only Date of Service: 09/20/24 The patient is an INPATIENT: No The patient has been examined within 24 hours of the surgical procedure. The History & Physical has been completed within 30 days and I have reviewed it.: Yes Section B - Complete if H&P > 30 days Chief Complaint: Morbid (severe) obesity due to excess calories Relevant Family History (Specify if Yes): No Relevant Social History: None Present Medications: None Medical History: No relevant PMH History of Previous Operations: No relevant previous surgery Allergies: Allergies Allergy/AdvReac Type Severity Reaction Status Date / Time No Known Allergies Allergy Verified 09/01/24 08:05 Review of Systems Sugical H&P ROS: Negative: Constitution, Cardiovascular, Respiratory, Neurological, Psychiatric, Hem-Onc, Allergic/Immunologic, Gastrointestinal, Genitourinary, Musculoskeletal, Integumentary, Endocrine and Eyes/Ears/Nose/Throat Exam Surgical H&P Exam: Normal: HEENT, Normal: Heart, Normal: Lungs, Normal: Extremities, Normal: Abdomen, Normal: Skin and Normal: Neurological Plan Diagnosis/Plan: Unchanged (EGD to assess the stomach's anatomy. Risks of bleeding and perforation were discussed with the patient and she is in agreement with the plan.) I have reviewed the history and physical and performed a pertinent physical examination on my patient. No changes have occurred unless specified. Time Spent With Patient Time: Total time managing care of this patient today ____ minutes.
--- NOTE | 2024-09-20 08:21 | P.BOP_ITS ---
Brief Operative Note Date of Service: 09/20/24 Pre-op diagnosis: Morbid obesity Post-op diagnosis: same Procedure: PROCEDURE DATE: 09/20/2024 PREOPERATIVE DIAGNOSIS: Morbid obesity POSTOPERATIVE DIAGNOSIS: ?Same as above. 1) Normal endoscopy PROCEDURE: [id number] with biopsies Surgeon: Kaylah Gatica M.D.. Ph.D. [employer] Floorperson: None ? Anesthesia: IV sedation Estimated blood loss: ?Minimal FINDINGS AND PROCEDURE: ? OPERATIVE INDICATIONS: ?The patient is a 33 year old female known to me who is interested in bariatric surgery. Based on this information I recommended an upper endoscopy to evaluate the stomach's anatomy. Risks and complications of the surgery were discussed with the patient in advance particularly the possibility of perforation or bleeding that may require surgical intervention. The patient understood the risks and was in agreement with the plan. ? PROCEDURE: After informed consent was obtained by the patient, the patient was ?transferred to the Operating Room and was placed in the supine position.? After successful induction of IV sedation, a mouth block was inserted and the patient was placed in the left lateral decubitus position. An upper endoscopy was performed next, the oropharynx and esophagus appeared within the normal limits. There was no hiatal hernia. The z-line was smooth. Two biopsies were obtained from the distal esophagus 2-3 cm proximal to the GE junction and two additional biopsies from the GE junction. The stomach was entered and it appeared to be of normal size. There was no gastritis. There was no stricture or ulcer. A biopsy was obtained from the gastric fundus and antrum. No significant bleeding was noted from any of the biopsy sites. Retroflexion of the scope revealed a normal GE junction. The scope was then advanced into the duodenum which appeared to be normal as well. At that point the duodenum ?and the stomach were decompressed and the scope was withdrawn from the patient's mouth. The patient extubated and was transferred in stable condition to the Recovery Room for further care. I was present and performed all steps of the procedure. There were no residents to assist with this case. Dylan Gatica M.D., Ph.D. Surgeon: Frederic Gatica MD Anesthesia: MAC Was an [employer] Floorperson used for this Procedure?: No Estimated blood loss (mL): 0 IV fluids (mL): 400 Urine output (mL): 0 (No Schreiber to record output) Pathology: other (1) antrum x1, 2) fundus x1, 3) GE junction x2, 4) distal esophagus x2) Condition: stable Disposition: PACU
[2024-09-20 08:44] VITALS: BP 94/55; PULSE 94; RESP 16; TEMP 36.4; O2SAT 98
[2024-09-20 08:59] VITALS: BP 98/55; PULSE 74; RESP 18; TEMP 36.4; O2SAT 98
== END 2024-09-20 09:34 | disposition home or self-care (01) ==
PROVIDERS: Nurse Practitioner; PCP Nurse Practitioner Family; Visit Provider Surgery
PROC: 0DJ08ZZ Inspection of Upper Intestinal Tract, Via Natural or Artificial Opening Endoscopic (ICD-10-PCS; CPT 43235; principal; 2024-09-20 08:10)
DX: E66.01 Morbid (severe) obesity due to excess calories (principal); Z68.43 Body mass index [BMI] 50.0-59.9, adult; M54.9 Dorsalgia, unspecified; G47.00 Insomnia, unspecified; Z79.1 Long term (current) use of non-steroidal anti-inflammatories (NSAID); Z79.899 Other long term (current) drug therapy; Z96.89 Presence of other specified functional implants; Z90.49 Acquired absence of other specified parts of digestive tract
CPT/HCPCS: 43239; 81025; 88305; 88312; 88313; 88342; J1596; J2003; J2250; J2704

== ENCOUNTER → 2024-09-20 06:57 | Outpatient (BNV) | payer OTHER, SELFPAY | PROVIDERS: PCP Nurse Practitioner Family; Visit Provider Surgery | DX: E66.01 Morbid (severe) obesity due to excess calories (principal); E66.813 Obesity, class 3; Z68.43 Body mass index [BMI] 50.0-59.9, adult | CPT/HCPCS: 43239 ==

== ENCOUNTER 2024-09-22 09:24 | Outpatient (REF) | payer OTHER, SELFPAY ==
--- NOTE | ~2024-09-22 | US_ITS ---
EXAMINATION: US COMPLETE ABDOMEN WITH LIVER ELASTOGRAPHY CLINICAL INFORMATION: Morbid obesity secondary to excess calories. COMPARISON: 11/26/2023 ultrasound abdomen limited. No prior elastography. TECHNIQUE: Real-time imaging of the abdominal viscera. Noninvasive ultrasound liver fibrosis assessment is performed using Nadia ElastPQ point quantification shear wave elastography (pSWE) with a C5-2 MHz transducer. Multiple elastography samples are obtained. 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 FINDINGS: -As per technologist note, Limited exam due to patient habitus. PANCREAS: The visualized pancreatic head and body are normal in appearance. The remainder of the pancreas is obscured from visualization by the overlying bowel gas. ABDOMINAL AORTA: No aortic aneurysm is seen. INFERIOR VENA CAVA: Visualized portions are normal. LIVER: Liver is mildly enlarged, and demonstrates mild diffusely increased echogenicity. No suspicious focal lesion. No biliary dilatation. Smooth contour. The right lobe measures 18.5 cm in length. The left lobe measures 9.3 cm in length. Portal flow is hepatopedal. Shear wave liver elastography median stiffness is 1.59 m/s (reference: normal median stiffness is 1.3 m/s or less). IQR/median stiffness to assess sampling precision is 0.23 (reference: good quality data set is IQR/median stiffness of 0.15 or less). GALLBLADDER: Surgically Absent. COMMON BILE DUCT: Normal in caliber measuring 0.6 cm in diameter. RIGHT KIDNEY: No hydronephrosis. No renal calculi or focal parenchymal lesions. The kidney measures 9.2 cm in maximum dimension. LEFT KIDNEY: No hydronephrosis. No renal calculi or focal parenchymal lesions. The kidney measures 10.2 cm in maximum dimension. SPLEEN: Unremarkable. The spleen measures 11.8 cm in maximum dimension. FREE FLUID: None seen. US/US abdomen comp w elastography IMPRESSION: 1. Mildly diffusely increased hepatic echogenicity with mild hepatic enlargement. This likely represents fatty infiltration. No suspicious lesion. 2. Liver elastography: Although measurements appear to rule out compensated advanced chronic liver disease, there is statistical variability of the sampling which decreases accuracy. 3. Cholecystectomy. 4. Remainder of the exam is normal allowing for limitations from body habitus. REFERENCE: Society of Radiologists in Ultrasound Liver Stiffness Thresholds (2020): LIVER STIFFNESS THRESHOLDS: *Liver Stiffness equal or less than 1.3 m/s: High probability of being normal. *Liver Stiffness less than 1.7 m/s: In the absence of other known clinical signs, rules out compensated advanced chronic liver disease. *Liver Stiffness 1.7-2.1 m/s: Suggestive of compensated advanced chronic liver disease but need further test for confirmation. *Liver Stiffness over 2.1 m/s: Rules in compensated advanced chronic liver disease. *Liver Stiffness over 2.4 m/s: Suggestive of clinically significant portal hypertension. QUALITY OF DATA SET: *IQR/Median value equal or less than 0.15 implies a quality data set. *IQR/Median value over 0.15 implies a poor quality data set. SIGNIFICANT CHANGE FROM PRIOR EXAM: Significant change if liver stiffness measurement is 10% or greater from prior exam. OTHER CONSIDERATIONS: The stage of liver fibrosis may be overestimated in the setting of acute hepatitis, liver inflammation, elevated liver function tests, hepatic vascular congestion, obstructive cholestasis, non-fasting state, and infiltrative diseases such as amyloidosis and lymphoma. In some patients with NAFLD, the liver stiffness thresholds for compensated advanced chronic liver disease may be lower. In causes other than viral hepatitis and NAFLD, liver stiffness thresholds are not well established. Electronically signed by: Micheal Callaway MD 11/10/2024 12:11 PM [facility] [place]
== END 2024-09-22 09:25 | disposition home or self-care (01) ==
LOC: HO.US 09:24
PROVIDERS: PCP Nurse Practitioner Family; Visit Provider Surgery
DX: E66.01 Morbid (severe) obesity due to excess calories (principal)
CPT/HCPCS: 76700; 76981

== ENCOUNTER → 2024-09-22 09:25 | Outpatient (BNV) | payer OTHER, SELFPAY | PROVIDERS: PCP Nurse Practitioner Family; Visit Provider Radiology Diagnostic Radiology | DX: R16.0 Hepatomegaly, not elsewhere classified (principal); E66.01 Morbid (severe) obesity due to excess calories | CPT/HCPCS: 76700 ==

== ENCOUNTER 2024-10-09 13:36 | Outpatient (AMB) | payer OTHER, SELFPAY ==
--- NOTE | 2024-10-09 13:05 | A.OFFWM_ITS ---
Intake Intake Visit Reasons: VIDEO F/U Allergies No Known Allergies Allergy (Verified 09/01/24 08:05) [facility] Medical History Back pain Insomnia Morbid obesity No known health problems Surgical History S/P ERCP (12/02/23) History of laparoscopic cholecystectomy (~11/29/23) Family History Mother Breast cancer Thyroid condition Depression affecting Father Family history unknown Social History Household Members: None Housing: Condominium Are you a primary primary care pediatrician to a significant other at home: No Do you presently have visiting nurse or other home services: No Comment: counts correct Patient Tobacco Use Status: Never used Tobacco Second Hand Smoke Exposure: No Advance Directives Date on File: 12/07/23 service: No Behavioral Health Assessment Weight Management Therapy Therapy Notes Details PT is a 33 years old female, who presents for second visit to complete assessment as part of surgical weight loss program. PT denied current mental health treatment, she attended counseling while in and college to cope with family rupture and address strong emotions triggered by parents separation. PT denied any past hospitalization/crisis for behavioral health and there is no history or recent safety concerns around SI/SA and/or self-harm/other-harm, also there is no history of substance use reported. PT reports some concerns with stress/emotional-eating, but scores from BES suggest low risk for binge eating behavior. PHQ- scores also showed no active symptoms/concerns with depression. On the other hand, mental status exam is within normal limits, suggesting person's functioning is not impaired. PT has been cleared from standpoint and will be seen post-op for support. Presenting Concerns Referral Source WMP-Provider Reason for referral Completion of behavioral health assessment as part of process for weight-loss surgery. Precipitating Event Obesity Living Situation Current Living Situation Own At risk of losing current housing? No Satisfied with current living situation? Yes Comments PT lives alone, with 2 cats. Food/Weight/Diet Expectations of change The initial goal is to lose 10% of her weight before surgery, about 34 lbs. Ultimate weight goal: 303lbs before surgery PT initial goal on 09/01/2024 was 337 lbs, most recent weight 338 lbs. Today's weight (10/09/2024): 327Lbs. PT is implementing the following: Current meal plan: 2 shakes, 2 bars, 1 meal (12F/12F) Exercise plan: 5 days at week for [address] bike at home. 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 She tend to skip meals, some days she would have 1-2 meals and others it feels she eats constantly the whole day. PT reports she tends to reward herself with food or pick certain foods based on her emotions, this often happens with [place]. Also notices she tends to eat more when depressed/stressed or anxious and makes the worse food decisions. Most of the time she would have breakfast then nothing else until dinner, and by that time she was very hungry and her choices were fast food or take out and at times bigger portions. Example of meals before starting the program: Breakfast: very consistent. Eggs, sausage, cheese with cauliflower and sweet potatoes. Lunch: a sandwich with a soup Dinner: mostly take out. often would be [place] food. Snacks: apples or popcorn Drinks/Liquids: before was doing 4 lattes at day with almond milk and mocha/caramel flavor. Currently does 1 coffee at day w/ 2 creamers. Drinks crystal light and lots of water at day. History/Relationship with weight PT reports she has always been overweight, in middle school she was already 220Lbs. then 300Lbs in HS. In the last 10 years, the patient's Lowest weight was 307Lbs and highest 390Lbs. History/Relationship with dieting Walking with Meal prep, lost 80Lbs in 1 year. BRIANA Zheng. With these she lost 10-Lbs over couple months but after losing motivation gained all the weight back. Binge Eating Do you frequently eat large amounts of food in short periods of time, not feeling physically hungry? No Do you feel out of control when you eat a large amount of food in a short period of time? No Do you eat large amounts of food rapidly and typically alone? No Night Eating Do you wake up at least once during the night to eat? No If you wake up in the night, do you find that it is necessary to eat something in order to fall back asleep? No Do you have little or no appetite in the morning and feel very hungry in the evening, often overeating between dinner and when you go to bed? Yes Social History Family history and relationship PT is single. Parents when she was young. She has 1 brother who is 7 years youngest, they're close and he's very supportive. No relationship with her father since age 18. She has a variable relationship with her mother. 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 Developmental history and status None. Social support Brother. Community support Some friends. Baptism/Spirituality Parents were Christian and she attended [employer] school but she is not affiliated to any. Cultural/Ethnic information . Born and raised in [place]. Legal Involvement and History Current or historical involvement with the legal system? None reported. Education Highest grade completed HS. Some college. Preferred learning style Learn by doing and Visual Currently enrolled in educational program? No Interested in further educational program? 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 No Meaningful activities Painting, yogesh, travel, reading. Financial Situation Describe current financial situation Comfortable and Occasional struggle Financial assistance? None Service Service? No Mental Health and Addiction Treatment Current/Past substance abuse? No Comments Alcohol: Rarely. 2-3 times in current year. Cigarettes/Tobacco: None Cannabis/Edibles: None Current/Past addictive behavior concerns? No Psychiatric history Went to therapy as a teenager while in and college, she reported increased anger due to past negative experiences. Currently not in counseling, also not under any psychotropic medication for MH. PT denies ever being in crisis or inpatient for mental health. There is no history and/or current concern about SI/SA and self-harm or other harm. Medical and Physical Health Summary Additional Medical History not covered in history None reported Sexual History concerns None reported. Physical exam in the last year? No (Upcoming in 10/2024.) Pain Screening Current pain? No Pain in the last few months? No Medications Is the patient compliant with medications? Not applicable Does the patient have Hodges Guardian in place? Not applicable Does the patient use complimentary health approaches? No Trauma/Abuse History History of trauma? No Questionnaires PHQ-9 Over the last 2 weeks, how often have you been bothered by any of the following problems? 1. Little interest or pleasure in doing things: not at all 2. Feeling down, depressed, or hopeless: not at all 3. Trouble falling or staying asleep, or sleeping too much: nearly every day (Trouble falling or staying asleep.) 4. Feeling tired or having little energy: nearly every day (Due to sleeping issues.) 5. Poor appetite or overeating: not at all 6. Feeling bad about yourself - or that you are a failure or have let yourself or your family down: not at all 7. Trouble concentrating on things, such as reading the newspaper or watching t elevision: several days 8. Moving or speaking so slowly that other people could have noticed. Or the opposite - being so fidgety or restless that you have been moving around a lot more than usual: not at all 9. Thoughts that you would be better off or of hurting yourself in some way: not at all Total score: 7 Depression Screening Interpretation: Positive (Nothing concerning for depression as Sx are related to sleeping issues. PT will talk with PCP. ) Depression Screening Done: Yes 04039 - PHQ-9 Billing: Yes Source: Developed by Drs. Nelson Ahumada, Ania Domínguez, Vinod Hinojosa and colleagues, with an educational jelena from [employer]. Binge Eating Scale Group 1 A. I don't feel self-conscious about my wt. or body size when I'm with others. B. I feel concerned about how I look to others, but it normally does not make me fell disappointed with myself C. I do get self-conscious about my appearance and wt. which makes me feel disappointed in myself. D. I feel very self-conscious about my wt. and frequently I feel intense shame and disgust for myself. I try to avoid social contacts because of my self- consciousness. Response Group 1: B Group 2 A. I don't have any difficulty eating slowly in the proper manner. B. Although I seem to gobble down foods, I don't end up feeling stuffed because of eating to much. C. At times, I tend to eat quickly and then, I feel uncomfortably full afterwards. D. I have the habit of bolting down my food, without really chewing it. When this happens I usually feel uncomfortably stuffed because I've eaten to much. Response Group 2: B Group 3 A. I feel capable to control my eating urges when I want to. B. I feel like I have failed to control my eating more than the average person. C. I feel utterly helpless when it comes to feeling in control of my eating urges. D. Because I feel so helpless about controlling my eating I have become very desperate about trying to get control. Response Group 3: B Group 4 A. I don't have the habit of eating when I'm bored. B. I sometimes eat when I'm bored, but often I'm able to get busy and get my mind off food. C. I have a regular habit of eating when I'm bored, but occasionally, I can use some other activity to get my mind off eating. D. I have a strong habit of eating when I'm bored. Nothing seems to help me breath the habit. Response Group 4: B Group 5 A. I'm usually physically hungry when I eat something. B. Occasionally, I eat something on impulse even though I really am not hungry. C. I have the regular habit of eating foods, that I might not really enjoy, to satisfy a hungry feeling even though physically, I don't need the food. D. Although I'm not physically hungry, I get a hungry feeling in my mouth that only seems to be satisfied when I eat a food, like sandwich, that fills my mouth. Sometimes, when I eat the food to satisfy my mouth hunger, I then spit the food out so I won't gain weight. Response Group 5: B Group 6 A. I don't feel any guilt or self-hate after I overeat. B. After I overeat, occasionally I feel guilt or self-hate. C. Almost all the time I experience strong guilt or self-hate after I overeat. Response Group 6: B Group 7 A. I don't lose total control of my eating when dieting even after periods when I overeat. B. Sometimes when I eat a forbidden food on a diet, I feel like I blew it and eat even more. C. Frequently, I have the habit of saying to myself, I've blown it now, why not go all the way, when I overeat on a diet. When that happens I eat more. D. I have a regular habit of starting a strict diets for myself but I break the diets by going on an eating binge. My life seems to be either a feast or famine. Response Group 7: B Group 8 A. I rarely eat so much food that I feel uncomfortably stuffed afterwards. B. Usually about once a month, I each such a quantity of food, I end up feeling very stuffed. C. I have regular periods during the month when I eat large amounts of food, either at mealtime or at snacks. D. I eat so much food that I regularly feel quite uncomfortable after eating and sometimes a bit nauseous. Response Group 8: C Group 9 A. My level of calorie intake does not go up very high or go down very low on a regular basis. B. Sometimes after I overeat, I will try to reduce my caloric intake to almost nothing to compensate for the excess calories I've eaten. C. I have a regular habit of overeating during the night. It seems that my routine is not to be hungry in the morning but overeat in the evening. D. In my adult years, I have had week-long periods where I practically starve myself. This follows periods when I overeat. It seems I live a life of either feast or famine. Response Group 9: B Group 10 A. I usually am able to stop eating when I want to. I know when enough is enough. B. Every so often, I experience a compulsion to eat which I can't seem to control. C. Frequently, I experience strong urges to eat which I seem unable to control, but at other times I can control my eating urges. D. I feel incapable of controlling urges to eat. I have a fear of not being able to stop eating voluntarily. Response Group 10: B Group 11 A. I don't have any problem stopping eating when I feel full. B. I usually can stop eating when I feel full but occasionally overeat leaving me feeling uncomfortably stuffed. C. I have a problem stopping eating once I start and usually I feel uncomfortably stuffed after I eat a meal. D. Because I have a problem not being able to stop eating when I want, I sometimes have to induce vomiting to relieve my stuffed feeling. Response Group 11: B Group 12 A. I seem to eat just as much when I'm with others, Family social gatherings as when I'm by myself. B. Sometimes, when I'm with other persons, I don't eat as much as I want to eat because I'm self-conscious about my eating. C. Frequently, I eat only a small amount of food when others are present, because I'm very embarrassed about my eating. D. I feel so ashamed about overeating that I pick times to overeat when I know no one will see me. I feel like a closet eater. Response Group 12: B Group 13 A. I eat three meals a day with only an occasional between meal snack. B. I eat 3 meals a day, but I also normally snack between meals. C. When I am snacking heavily, I get in the habit of skipping regular meals. D. There are regular periods when I seem to be continually eating, with no planned meals. Response Group 13: B Group 14 A. I don't think much about trying to control unwanted eating urges. B. At least some of the time, I feel my thoughts are pre-occupied with trying to control my eating urges. C. I feel that frequently I spend much time thinking about how much I ate or about trying not to eat anymore. D. It seems to me that most of my waking hours are pre-occupied by thoughts about eating or not eating. I feel like I'm constantly struggling not to eat. Response Group 14: B Group 15 A. I don't think about food a great deal. B. I have strong craving for food but they last only for brief periods of time. C. I have days when I can't seem to think about anything else but food. D. Most of my days seem to be pre-occupied with thoughts about food. I feel like I live to eat. Response Group 15: B Group 16 A. I usually know whether or not I'm physically hungry. I take the right portion of food to satisfy me. B. Occasionally, I feel uncertain about knowing whether or not I'm physically hungry. A these times it's hard to know how much food I should take to satisfy me. C. Even though I might know how many calories I should eat, I don't have any idea what is a normal amount of food for me. Response Group 16: A Binge Eating Score: 16 Score less than 17 Minimal Risk Score between 18-26 Moderate Risk Score between 27-46 High Risk Assessment & Plan Assessment & Plan (1) Adjustment disorder: Code(s): F43.20 - Adjustment disorder, unspecified (2) Inappropriate diet and eating habits: Code(s): Z72.4 - Inappropriate diet and eating habits Plan This patient has been cleared from standpoint and will be seen post-op for support. This provider has advised client to utilize available resources such as peer support group, Facebook group and group therapy, also the patient has been informed of support available at anytime while she is part of this program. Next rogelio: 2-4 weeks post-op. Telehealth Telehealth Telehealth Platform: [facility] Location of provider rendering services: other Location of patient: other ([place], [place]) Patient Identification confirmed using: Name, : Yes Telehealth method: voice only Patient verbally consented to treatment: Yes Patient verbally consented to billing insurance company: Yes Patient informed of any privacy concerns related to visit: Yes Minutes spent on Phone/Video with Pt.: 55 Coding Level of Care Code Established Pt Tele Psytx >53 mins (40733) Patient Type Established Diagnoses Adjustment disorder F43.20 Inappropriate diet and eating habits Z72.4 Additional Codes PHQ-9 - 56376 - PHQ-9 Billing: Yes ([id number]) Time Spent (min) 55
== END 2024-10-09 16:06 | disposition home or self-care (01) ==
LOC: HO.HBST 13:36
PROVIDERS: PCP Nurse Practitioner Family; Visit Provider Counselor Mental Health
DX: F43.20 Adjustment disorder, unspecified (principal); Z72.4 Inappropriate diet and eating habits
CPT/HCPCS: 90837

== ENCOUNTER 2024-11-20 09:17 | Outpatient (REF) | payer OTHER, SELFPAY ==
--- NOTE | ~2024-11-20 | FL_ITS ---
EXAMINATION: XR FLUOROSCOPY UPPER GI WITH AIR CLINICAL INFORMATION: Moderate obesity due to excess calories. Preop evaluation. COMPARISON: None available. TECHNIQUE: Routine upper GI contrast study was performed in upright and lying position. FINDINGS: Following oral administration of thin barium and effervescent granules in upright view there is normal propagation bolus from the oral cavity through the pharynx, esophagus and the stomach without any evidence of obstruction, narrowing or stricture. No laryngeal penetration or aspiration seen. On placing patient supine and prone the course, caliber and peristalsis of the stomach, duodenal bulb and sweep is normal. There is moderate gastroesophageal reflux without hiatal hernia. The mucosal pattern of the stomach and the duodenum is normal.. FLUOROSCOPY TIME: 55 seconds DOSE AREA PRODUCT: 1092 uGy-m2 (microgray-meter squared) FL/FL upper GI w air IMPRESSION: Moderate gastroesophageal reflux without hiatal hernia in supine lying position. Electronically signed by: Ramon Pelaez MD 11/20/2024 05:39 PM [facility]
--- OUTSIDE RECORDS SUMMARY | 2024-11-20 09:37 | XMS_ITS | Data Portability ---
Author Organization [facility], , [facility] Address [address] [place] [address] Care Team Providers Care Patient Support Representative Name Role Phone SUSHMA GIANG Primary Care Provider [facility] Patient Admitting Clerk Assessment Encounter Date Assessment Date Assessment LastModified by Organization Details LastModified Time 05/20/2023 05/20/2023 After a discussion of treatment options, which included consideration of best practices and patient preferences, the following treatment plan and objectives were adopted: [email or web address] Not available 05/20/2023 10:35:26 Plan of Treatment Reminders Order Date Submit Date Provider Last Modified By Organization Details Last Modified Time Details Appointments Mamm ogra m, Scre enin g 2024 07:30A M [facility] Instructor Trainer Canine Service Not available Not available Not available LAB Foll ow-U p 2024 06:30A M [facility] Not available Not available Not available Foll ow Up, 30 2024 10:00A M SUSHMA COLEMAN PA-C Not available Not available Not available Lab jessi SHELTON or kartik briones 2016 017 [facility], [address] [place] [address], [address], 03/03/2017 10:36:04 HbA1 c (hem oglo bin A1c) , sara call 2016 017 [facility], [address] [place] [address], [address], 03/03/2017 10:21:32 jessi shin 2016 017 [facility], [address] [place] [address], [address], 03/03/2017 10:36:05 LDL, dire ct, seru m 2016 017 [facility], [address] [place] [address], [address], 03/03/2017 10:36:06 TSH, seru m or plas ma 2016 017 [facility], [address] [place] [address], [address], 03/03/2017 12:17:51 CBC 2024 025 [email or web address] [facility], [address] [place] [address], [address], 11/17/2024 09:09:18 test oste lora connera l, seru m 2024 025 ssuperneai [facility], [address] [place] [address], [address], 11/17/2024 09:09:18 pap, LB + HPV - Is this sy ent taki ng [facility] daria (y/n )? IF yes, what type ? [facility] [address] [place], [address], 11/17/2024 12:37:06 HPV E6+E 7 mRNA , qual itat perfecto PCR, cerv ix - CC TO DOCT OR #278 9 [facility]Y [facility]24 [facility] [address] [place] [address], [address], 11/17/2024 09:52:47 Referral None neeru rded . Procedures None neeru rded . Surgeries None neeru rded . Imaging MAMM O, scre enin g, peter synt hesi s, bila riccardo l - 2nd Look Cons ult/ Diag Mamm o/US [facility] [facility]/G uide d Asp/ [facility] [facility] Bx/C lip Plac emen t, as clin ical ly emily vanessa d. 2024 025 dmau [facility] (Imaging), [address], [place], [address], 11/17/2024 13:19:01 Medication Orders omep tristan le 20 mg caps ule, fabian yed rele ase 2022 023 [email or web address] [id number], [address] [facility], [place], [address], 11/16/2024 15:27:02 Patient TargetsNo targets recorded. Patient Instructions Encounter Date Encounter Id Patient Instructions Last Modified By Organization Details Last Modified Time 03/02/2017 [id number] Well Visit, Ages 18 to 65: Care Instructions Not available 03/02/2017 14:29:03 I encourage trying to incorporate physical activity for at least 20mins every day. Also encourage increased consumption of whole grains, beans/legumes, vegetables, fruits and to decrease consumption of processed foods, sweets, meat, fish, dairy, and eggs. Be sure to include calcium rich foods such as dark, leafy greens, almonds, and beans. Not available 03/02/2017 14:30:53 05/20/2023 [id number] Well Visit, Ages 18 to 65: Care Instructions [email or web address] Not available 05/20/2023 10:02:03 Reason for Referral None Reported. Results Created Date Observation Date Name Description Value Unit Range Abnormal Flag Note LastModifiedBy Organization Detail LastModifiedTime 03/02/2003/03/2017 HbA1c (hemo globi n A1c), blood hemoglobin A1C 5.2 % 4.8-6. 0 Goal: <7% in Patie nts with Diabe alejandra Not Available [facility] [address] [facility], [place], [address], 03/03/2017 10:21:32 03/02/20 17 03/03/2017 HbA1c (hemo globi n A1c), blood estimated average glucose 102.5 mg/dL Not Available [address], [address], 03/03/2017 10:21:32 03/02/20 17 03/03/2017 BMP, serum or plasm a glucose 79 mg/dL 70-100 Not Available [address], [address], 03/03/2017 10:36:04 03/02/20 17 03/03/2017 BMP, serum or plasm a BUN 15 mg/dL 7-18 Not Available [address], [address], 03/03/2017 10:36:04 03/02/20 17 03/03/2017 BMP, serum or plasm a creatinine 0.8 mg/dL 0.8-1. 3 Not Available [address], [address], 03/03/2017 10:36:04 03/02/20 17 03/03/2017 BMP, serum or plasm a B/C 18.8 ratio Not Available [address], [address], 03/03/2017 10:36:04 03/02/20 17 03/03/2017 BMP, serum or plasm a GFR -non 96.4 mL/mi n Recom israel d GFR by the Natio nal Kidne y Found ation >60 mL/mi n/1.7 3m2 - Laney l <60 mL/mi n/1.7 3m2 - Chron ic Kidne y Disea se <15 mL/mi n/1.7 3m2 - Kidne y Failu re Not Available [address], [address], 03/03/2017 10:36:04 03/02/20 17 03/03/2017 BMP, serum or plasm a GFR - if 110.8 mL/mi n For Afric an Ameri can patie nts: Resul ts Multi plied by 1.21 Not Available [address], [address], 03/03/2017 10:36:04 03/02/20 17 03/03/2017 BMP, serum or plasm a sodium 145 mmol/ L 136-14 5 Not Available [address], [address], 03/03/2017 10:36:04 03/02/20 17 03/03/2017 BMP, serum or plasm a potassium 4.8 mmol/ L 3.5-5. 1 Not Available [address], [address], 03/03/2017 10:36:04 03/02/20 17 03/03/2017 BMP, serum or plasm a chloride 107 mmol/ L 96-107 Not Available [address], [address], 03/03/2017 10:36:04 03/02/20 17 03/03/2017 BMP, serum or plasm a anion gap 8.9 5.0-15 .0 Not Available [address], [address], 03/03/2017 10:36:04 03/02/20 17 03/03/2017 BMP, serum or plasm a CO2 29 mmol/ L 21-32 Not Available [address], [address], 03/03/2017 10:36:04 03/02/20 17 03/03/2017 BMP, serum or plasm a calcium 9.1 mg/dL 8.5-10 .3 Not Available [address], [address], 03/03/2017 10:36:04 03/02/20 17 03/03/2017 lipid panel , serum cholesterol 108 mg/dL <200 mg/dl Reagan able 200-2 39 mg/dl Borde rline High >240 mg/dl High Not Available [address], [address], 03/03/2017 10:36:05 03/02/2003 0303/03/2017 lipid panel , serum triglyceride s 53 mg/dL <150 mg/dL Laney l 150-1 99 mg/dL Borde rline High 200-4 99 mg/dL High >500 mg/dL Very High Not Available [address], [address], 03/03/2017 10:36:05 03/02/20 17 03/03/2017 lipid panel , serum direct HDL 43 mg/dL Not Available [address], [address], 03/03/2017 10:36:05 03/02/20 17 03/03/2017 LDL, direc t, serum direct LDL 57 mg/dL RISK CATEG ORY LDL GOAL _ CHD or CHD Risk Equiv alent s <100 mg/dl (10-y ear risk >20%) 2+ Risk Facto rs <130 mg/dl (10-y ear risk <= 20%) 0-1 Risk Facto r? <160 mg/dl ? Almos t all peopl e with 0-1 risk facto r have a 10 year risk <10%, thus 10 year risk asses ment in peopl e with 0-1 risk facto r is not neces shravan. Not Available [address], [address], 03/03/2017 10:36:06 03/02/20 17 03/03/2017 TSH, serum or plasm a TSH 2.01 uIU/m L 0.50-6 .00 The Ameri can Colle ge of Endoc rinol ogy and Amcrystal can Thyro id Assoc iatio n recom mend goal TSH value s betwe en 0.4-4 .0 mIU/m L. Not Available [address], [address], 03/03/2017 12:17:51 11/26/19 24 11/26/2023 US, abdom en, limit ed No observ ation record ed. [id number] [place], [address], 11/26/2023 15:48:40 12/03/19 24 12/02/2023 fluor oscop ic guide d injec tion (PROC ) No observ ation record ed. [email or web address] [facility] [address] [place] [address], [address], 12/06/2023 13:46:17 12/13/19 24 11/29/2023 CT, abdom en + pelvi s No observ ation record ed. [id number] [place], [address], 12/15/2023 13:43:34 10/31/19 25 09/07/2024 XR, chest No observ ation record ed. [id number] [place], [address], 11/01/2024 08:23:13 11/10/19 25 09/22/2024 US, abdom en No observ ation record ed. [id number] [place], [address], 11/10/2024 13:02:46 Result Notes None recorded. Problems Name Problem SNOMED Code Status Onset Date Resolution Date Notes Provider Name and Address Organization Details Recorded Time Morbid obesity 195051190 Active 2015 Litzy Walker NP [address] [facility] [place], [address], [facility] 6 14:35:00 Contraception care Active 2016 Dariela Roa PA-C [address] [place], [place] [address] [place], [address], [facility] 7 14:40:18 Family history of breast cancer 474215400 Active 2016 Dariela Roa PA-C [address] [place] [address], [address], [facility] 7 14:40:20 Pancreatitis 19381059 Active 2023 Kathryn Caballero LPN null, [facility] 4 10:54:36 Problem Notes None recorded. Procedures Surgical History Date Name Laterality Status Provider Name and Address Organization Details Recorded Time 05/20/20 Depression Screening completed JANUARY ALEJANDRA SIU, DNP [address] [place] [address], [phone], [facility] 05/20/2023 10:14:51 05/20/20 prevention-annual alcohol misuse screening completed JANUARY ALEJANDRA SIU, HENOK [address] [place] [address], [phone], [facility] 05/20/2023 10:14:56 cholecystectomy completed Estefania Hodges PA-C [address] [place] [address], [phone], [facility] 11/29/2023 14:54:51 Imaging Results Imaging Date Name Status LastModified by Organization Details LastModified Time 11/26/2023 US, abdomen, limited completed [address], [address], 11/26/2023 15:48:40 12/02/2023 fluoroscopic guided injection (PROC) completed [email or web address] [address], [address], 12/06/2023 13:46:17 11/29/2023 CT, abdomen + pelvis completed [address], [address], 12/15/2023 13:43:34 09/07/2024 XR, chest completed [address], [address], 11/01/2024 08:23:13 09/22/2024 US, abdomen active [email or web address] [facility] [address] [facility], [place], [address], 11/10/2024 13:02:46 Procedure Notes None recorded. Medical Equipment None Reported. Allergies No known drug allergies Medications Name Sig Start Date Stop Date Status Note LastModified by Organization Details LastModified Time acetaminoph en/codeine #3 300-30 mgtabs active Not Available Not Available Not Available clindamycin hcl 150 mg caps active Not Available Not Available Not Available amoxicillin 500 mg capsule TAKE 2 CAPSULES BY MOUTH EVERY 12 HOURS FOR 10 DAYS 03/30 completed Not Available Not Available Not Available Colace 100 mg capsule Take 1 capsule twice a day by oral route as needed. 11/16 completed Not Available Not Available Not Available methocarbam ol 750 mg tablet 05/20 completed Not Available Not Available Not Available oxycodone 5 mg capsule Take 1 capsule every 4 hours by oral route as needed. 11/16 completed Not Available Not Available Not Available omeprazole 20 mg capsule,del ayed release Take 1 capsule every day by oral route at dinner. 11/16 completed Not Available Not Available Not Available ibuprofen 600 mg tablet PRN 11/16 completed Not Available Not Available Not Available oxycodone 5 mg tablet 11/16 completed Not Available Not Available Not Available Vitals Date Recorded Body height Body weight Body mass index (BMI) Heart rate Systolic blood pressure Diastolic blood pressure Provider Name and Address Organization Details Last Updated DateTime 7 166.37 cm 861868. 89 g 53.9 kg/m2 72 /min 128 mm[Hg] 72 mm[Hg] Gretchen Mchugh MA [facility] 7 13:44:41 Date Recorded Body weight Body mass index (BMI) Body height Heart rate Oxygen saturation Oxygen saturation in Arterial blood by Pulse oximetry Systolic blood pressure Diastolic blood pressure Provider Name and Address Organization Details Last Updated DateTime 3 458237. 55 g 60.1 kg/m2 165.1 cm 77 /min 98 % 98 % 110 mm[Hg] 68 mm[Hg] Carla Cooney CMA [facility] 3 10:03:57 Date Recorded Body height Body mass index (BMI) Body weight Oxygen saturation Oxygen saturation in Arterial blood by Pulse oximetry Heart rate Systolic blood pressure Diastolic blood pressure Provider Name and Address Organization Details Last Updated DateTime 3 165.1 cm 58.4 kg/m2 384345. 92 g 99 % 99 % 78 /min 120 mm[Hg] 70 mm[Hg] BONI Koo [facility] 3 10:58:22 Date Recorded Body weight Body mass index (BMI) Body height Oxygen saturation Oxygen saturation in Arterial blood by Pulse oximetry Heart rate Systolic blood pressure Diastolic blood pressure Provider Name and Address Organization Details Last Updated DateTime 5 304678 g 52.3 kg/m2 165.1 cm 98 % 98 % 72 /min 106 mm[Hg] 60 mm[Hg] Shanna Concepcion MA [facility] 5 15:33:06 Date Recorded Body height Body weight Body mass index (BMI) Heart rate Oxygen saturation Oxygen saturation in Arterial blood by Pulse oximetry Systolic blood pressure Diastolic blood pressure Provider Name and Address Organization Details Last Updated DateTime 6 166.37 cm 290562. 79 g 50.9 kg/m2 76 /min 99 % 99 % 142 mm[Hg] 94 mm[Hg] Milly Leblanc MA [facility] 6 14:01:19 Social History Question Answer Notes LastModified by Organizat ion Details LastModified Time Tobacco Smoking Status Never Smoker 11/16/24 Shanna Concepcion MA [facility] 11/16/2024 15:28:18 What Is Your Level Of Alcohol Consumption? Occasional No Alcohol Over summer05/20/23 [email or web address] Information not available 05/20/2023 Do You Wear A Helmet When Biking? Yes [email or web address] Information not available 11/16/2024 What Is Your Level Of Caffeine Consumption? Occasional No Caffiene Over summer05/20/23mh 1 A Day [email or web address] Information not available 11/16/2024 How Much Tobacco Do You Chew? None Information not available 10/25/2015 Are You Currently Employed? Yes [email or web address] Information not available 05/20/2023 What Type Of Diet Are You Following? REGULAR [email or web address] Information not available 05/20/2023 Which Illicit Or Recreational Drugs Have You Used? Denies Information not available 03/02/2017 Education 12 Some College Information not available 10/25/2015 What Is Your Occupation? [employer] [email or web address] Information not available 05/20/2023 Have There Been Any Changes To Your Family Or Social Situation? No [email or web address] Information not available 05/20/2023 Are There Any Guns Present In Your Home? No Information not available 10/25/2015 Do You Use Insect Repellent Routinely? Yes [email or web address] Information not available 11/16/2024 Live Alone Or With Others? With Others Information not available 03/02/2017 Does The Patient Have Difficulty Speaking Tongan? No Information not available 10/25/2015 Does The Patient Have Difficulty Reading Tongan? No Information not available 10/25/2015 Patient Has Health Care Proxy Signed And In Chart Yes Given To Pt 05/20/23 [email or web address] Information not available 05/21/2023 Marital Status Single Informatio n not available 10/25/2015 Mosquito Repellent Used Routinely No Information not available 10/25/2015 What Was The Date Of Your Most Recent Tobacco Screening? 08/26/2023 [email or web address] Information not available 08/26/2023 How Many Children Do You Have? 0 Information not available 10/25/2015 Do You Use Your Seat Belt Or Car Seat Routinely? Yes [email or web address] Information not available 11/16/2024 Seat Belts Used Routinely No More Than Half The Time Information not available 10/25/2015 Are You Sexually Active? No Information not available 03/02/2017 Smoke Alarm In Home Yes Information not available 10/25/2015 Do You Have Smoke And Carbon Monoxide Detectors In Your Home? Yes [email or web address] Information not available 05/20/2023 Are You Passively Exposed To Smoke? No [email or web address] Information not available 05/20/2023 General Stress Level Medium Work Related- Was Working 60hrs/week Information not available 10/25/2015 Do You Use Any Illicit Or Recreational Drugs? No [email or web address] Information not available 05/20/2023 Do You Use Sunscreen Routinely? Yes [email or web address] Information not available 11/16/2024 Do You Or Have You Ever Used Any Other Forms Of Tobacco Or Nicotine? No [email or web address] Information not available 05/20/2023 Sex: Unknown Functional Status Question Answer Note LastModified by Organization D etails LastModified Time What is your exercise level? Moderate [email or web address] Information not available 05/20/2023 Mental Status None recorded. Family History Relationship Description Onset Age of this Age Resolved Age Notes LastModified by Organization Details LastModified Time Mother Malignant tumor of breast 37 dbl mast and hyster ectomy [email or web address] Not available 10/25/2015 11:54:20 Mother Kirsten thyroiditis [email or web address] Not available 05/2016 11:54:20 Notes:Father- estranged. bryson ious thyroid and cancer diagnoses- unclear Mom: breast cancer (mid-late 30s), Medical History Condition Response Chronic Neck Pain Obesity Y Gynecological History Statement/Question Response Menses Monthly N History of Abnormal Pap Y Current Control Method Implant Obstetrics History GPAL:G 0 P 0 0 0 0 Immunizations Vaccine Type Date Status Note Provider Nam e and Address Organization Details Recorded Time Td (adult), 5 Lf tetanus toxoid, preservative free, adsorbed 6 completed Not Available [facility] 11/04/2019 02:34:59 Influenza, split virus, trivalent, preservative 5 completed Jennifer Raymond [facility] 10/25/2015 11:24:25 Influenza, split virus, quadrivalent, PF 3 completed Isaura Rosas. [address] [place] [address], [address], [facility] 08/26/2023 11:04:08 COVID-19, mRNA, LNP-S, bivalent, PF, 50 mcg/0.5 mL or 25mcg/0.25 mL dose 1 [facility]/26/[facility]23 09:25:55 COVID-19, mRNA, LNP-S, bivalent, PF, 50 mcg/0.5 mL or 25mcg/0.25 mL dose 1 completed BONI Koo, [facility] 08/26/2023 09:26:03 COVID-19, mRNA, LNP-S, bivalent, PF, 50 mcg/0.5 mL or 25mcg/0.25 mL dose 1 completed NilBONI townsend, [facility] 08/26/2023 09:26:10 COVID-19, mRNA, LNP-S, bivalent, PF, 50 mcg/0.5 mL or 25mcg/0.25 mL dose 2 completed BONI Koo, [facility] 08/26/2023 09:26:19 Past Encounters Encounter ID Performer Location Encounter Start Date Encounter Closed Date Diagnosis/Indication Diagnosis SNOMED-CT Code Diagnosis ICD10 Code Diagnosis Note [id number] Sumi Javed PA-C , [facility] [address] [place] [address] 10/25/2015 11:18:25 10/25/2015 12:07:14 Administration of diphtheria and tetanus vaccine 16492882 Z23 Family his tory of breast cancer 577360647 Z80.3 refer for genetic testing. will need to start mammograms early. Oligomenorrhea 69588708 N91.5 more obvious in the last 8 months. PCOS suspect. we discussed the possibilit y of seeing endocrinol ogy. we reviewed possible OCP use to help manage PCOS but until we know more informatio n about genetic testing in regards to breast cancer we will hold off on estrogen contianing hormone treatments . She will release her records so we can see what labs have been accomplish ed so far. Obesity 751982248 E66.9 Under the care of [facility]. WIll update referral. She walks a lot. Please with her 40 pound weight loss so far. Using Apps to monitor her activitiy levels. [id number] Jennifer Raymond , [facility] [place] [address] [place] [address] 11/19/2015 09:37:35 11/19/2015 10:16:47 Abnormal cervical Papanicolaou smear 127784961 R87.619 He records made it to us but the pap pathology did not. She will contact her previous provider to have them send it because it is her second abnormal. She will need a colpo. Sinusitis 63771117 J32.9 probiotics encouraged . push fluids, humidified air, nasal saline. follow up if symptoms persist or worsen. [id number] Litzy Walker NP , [facility] [place] [address] [place] [address] 03/30/2016 13:43:31 03/30/2016 14:48:33 Dizziness 658738422 R42 Unclear etiologyun sure if allergies contributi ng. ? blood sugarwill start with labs below Morbid obesity 129279224 E66.01 BMI 50 [id number] Dariela Roa PA-C , [facility] [place] [address] [place] [address] 03/02/2017 13:35:27 03/02/2017 14:24:02 Adult health examination 237167334 Z00.01 Benign exam.PAP UTD at gyne. Counseling 172772313 Z71 .9 Morbid obesity 442217202 E66.01 Hasn't had labs at [facility] yet. Will update. F/u pending results. Increased weight gain due to job stress and 60hr work weeks. Plans on getting back to exercise and better eating habits, less work hours this summer. No longer seeing weight management . Family his tory of breast cancer 143531285 Z80.3 Pt did not go to genetics as referred last year. Pt states Mom was negative for BRCA genes so she doesn't want to be tested at this time. Understand s importance of starting mammogram screenings early. Contraception care 92568 5002 Z30.40 Pt reports getting nexplanon implant in August 2016 at [facility] office-- no record in chart. Pt declines wanting to see an endocrinol ogist. Unclear if PCOS workup ever done. 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 No suspicion for DVT or Alberto's cyst. ? lymphedema .she will wear her compressio n socks and let this DRAINLAYER know if edema improves [id number] Isaura Rosas . , [facility] [place] [address] [place] [address] 08/26/2023 10:38:54 08/26/2023 11:20:08 Active or passive immunization 467578121 Z23 flu shot today. Epigastric pain 69620535 R10.13 ? GERD, will try omeprazole 20 mg daily.avoi d carbonatio n, minimize tomato sauce, spicy food, greasy foods, mint, chocolate, limit caffeine, do not eat late at night, smaller portions.i f sx persist or worsen let us know. [id number] SUSHMA DRAKE PA-C , [facility] [address] [place] [address] 11/16/2024 15:18:48 11/17/2024 13:19:01 Adult health examination 981479402 Z00.00 USPSTF guidelines reviewedPa p- will do today/obta inedMammo- mom hx breast ca--double mastectomy age 38. Pt to starts screening. [place]- declines family hx Vaccines-U TDLabs-UTD Blood pressure- WNLEncoura ged regular dental and vison examinatio ns. In weight loss clinic through [facility] at [place] [address] 0lbs,exerc ising Depression screening 171 144180 Z13.31 depression screening tool administer ed. neg. Screening for alcohol abuse 587828932 Z13.39 Alcohol use screening tool administer ed. neg. Screening for malignant neoplasm of cervix 093160337 Z12.4 Obtained Screening mammography 24 398116 Z12.31 Early screening Morbid obesity 493612600 E66.01 Seeing [facility] bariatric medicine Irregular periods 186324 07 N92.6 Periods q3 weeks with intermitte nt dizziness, signs of Hirsutism. Check CBC, testerone levels; consider pelvic USBMI 52.3 Health Concerns Section Related Observation LastModified by Organization Detai ls LastModified Time None Recorded Concern Status LastModified by Organization Details LastModified Time None Recorded Advance Directives Directive None Recorded Payers Encounter Date Sequence Insurance Name Policy Number Policy Gallego Covered Member ID Gallego Member ID Guarantor Name 03/30/2016 1 [place] [facility] PL[facility] Emma Almanza [id number] Emma Almanza 03/02/2017 1 [facility] PLAN - NAVIGATOR (PPO) [id number] Emma Rachele [employer] [id number] Emma Almanza 05/20/2023 1 [facility] [id number] Emma L L [place] [id number] Emma Almanza 08/26/2023 1 [facility] [id number] Emma L L [place] [id number] Emmadeshawn [place] 11/16/2024 1 [facility] [id number] Emma L L [place] [id number] Emma Almanza Notes Date Note Type Note Provider Name and Address Organization Details Recorded Time 03/30/2016 text/html Emma is here with concerns of near syncopesxs began few weeks- sudden onset of heat/itchy skin Very dizzy. Feels as though she is going to fall. Usually with standing. No pattern in terms of morning or evening.usually lasts few seconds. Usu a few times a week- although occasiona mult x day.No know relation to eatingbowels are regular.Periods late- not sexually active recently.sleeping unchanged- does not sleep well Litzy Walker NP [address] [place] [address], [phone], [facility] 03/30/2016 14:38:43 03/02/2017 text/html Risk Assessment and Lifestyle Change Counseling 18-50Reported bypatient.Coronary Artery Disease Risk Assesment:No Family history of coronary artery disease; No personal history of diabetes Breast Cancer Risk Assessment:Family history of breast cancer; No history of breast cancer or dcis Lung Cancer Risk Assessment:Never smoked Cognitive/Behavioral Risk Assessment:No personal history of mental illness; No family history of mental illness Safety Risk Assessment:No evidence of abuse/neglect Diet:Counseled about eating a diet low in trans and saturated fats and high in fiber, fruits and vegetables Exercise counseling:Discussed the importance of daily physical activity; Discussed the importance of weight bearing exercise Safety:Counseled about protecting skin from the sun and lowering the risk of skin cancer Family Planning:Using control (implanon) Would like blood work. Recent weight gain due to increased job stress, 60hr work weeks, overnight shift affecting sleep. Poor sleep and mood secondary to work. Denies depression/anxiety. Dariela Roa PA-C [address] [place] [address], [phone], [facility] 03/02/2017 14:41:32 05/20/2023 text/html Risk Assessment and Lifestyle Change Counseling 18-50Reported bypatient.Coronary Artery Disease Risk Assesment:No Family history of coronary artery disease; No personal history of diabetes; No history of peripheral vascular disease, AAA, or carotid disease; No personal history of coronary artery disease Breast Cancer Risk Assessment:No family history of breast cancer; No history of breast cancer or dcis Lung Cancer Risk Assessment:Never smoked; No asbestos exposure Cognitive/Behavioral Risk Assessment:No personal history of mental illness; No family history of mental illness Safety Risk Assessment:No evidence of abuse/neglect Colon Cancer Risk:No family history of colon polyps or cancer Diet:Counseled about eating a diet low in trans and saturated fats and high in fiber, fruits and vegetables Exercise counseling:Discussed the importance of daily physical activity Safety:Counseled about protecting skin from the sun and lowering the risk of skin cancer; Counseled about avoiding excessive and unsafe alcohol intake; Counseled about safer sexual practice; Counseled about use of helmets for high velocity activiities; Counseled about home safety including use of smoke detectors, CO detectors, keeping home water temperature less than 120; Counseled about use of seat belts; An audit alcohol screening was performed and scored. Patient was asked about alcohol use. Advised about risks of alcohol and personal risk was assessed. Patient agreed to plan and given information about available resources if needed. Discussion including screening and scoring greater than 7.5 minutes. Family Planning:Not using control Presents to establish care today works at [employer] nexplanonevery 3 weeks period SH:None FHno changes JANUARY HENOK STALLINGS [address] [place], [address], [facility] 05/20/2023 10:37:30 08/26/2023 text/html Comes in with concern of acid reflux with upper back tightness.Was having it more 2 weeks ago, then worse the last 2 days. States at times she tries to deep breath and gets a tight feeling in her upper back. Can walk without symptoms.Gets tightness in upper abdomen into sides at random times.Burps often when gets sx.No sour taste.No bloody or black stools.No fever, has had a cough off and on for a few weeks, once or twice a day. Isaura Rosas. [address] [place] [address], [phone], [facility] 08/26/2023 11:15:57 11/16/2024 text/html Risk Assessment and Lifestyle Change Counseling 18-50Reported bypatient.Coronary Artery Disease Risk Assesment:No Family history of coronary artery disease; No personal history of diabetes; No history of peripheral vascular disease, AAA, or carotid disease; No personal history of coronary artery disease Breast Cancer Risk Assessment:No family history of breast cancer; No history of breast cancer or dcis Lung Cancer Risk Assessment:Never smoked; No asbestos exposure Cognitive/Behavioral Risk Assessment:No personal history of mental illness; No family history of mental illness Safety Risk Assessment:No evidence of abuse/neglect Colon Cancer Risk:No family history of colon polyps or cancer Diet:Counseled about eating a diet low in trans and saturated fats and high in fiber, fruits and vegetables Exercise counseling:Discussed the importance of daily physical activity Safety:Counseled about protecting skin from the sun and lowering the risk of skin cancer; Counseled about avoiding excessive and unsafe alcohol intake; Counseled about safer sexual practice; Counseled about use of helmets for high velocity activiities; Counseled about home safety including use of smoke detectors, CO detectors, keeping home water temperature less than 120; Counseled about use of seat belts; An audit alcohol screening was performed and scored. Patient was asked about alcohol use. Advised about risks of alcohol and personal risk was assessed. Patient agreed to plan and given information about available resources if needed. Discussion including screening and scoring greater than 7.5 minutes. Family Planning:Not using control Presents to establish care today works at [employer] had nexplanonevery 3 weeks period SH:None FHno changes SUSHMA SANDHU PA-C [address] [place] [address], [phone], [facility] 11/17/2024 09:10:18 OBGyn Episode No OBEpisode recorded.
== END 2024-11-20 09:18 | disposition home or self-care (01) ==
LOC: HO.XRAY 09:17
PROVIDERS: Visit Provider Surgery
DX: E66.01 Morbid (severe) obesity due to excess calories (principal)
CPT/HCPCS: 74246

== ENCOUNTER → 2024-11-20 09:18 | Outpatient (BNV) | payer OTHER, SELFPAY | PROVIDERS: Visit Provider Radiology Diagnostic Radiology | DX: K21.9 Gastro-esophageal reflux disease without esophagitis (principal) | CPT/HCPCS: 74246; 74248 ==

== ENCOUNTER 2024-12-01 08:09 | Outpatient (AMB) | payer OTHER, SELFPAY ==
--- OUTSIDE RECORDS SUMMARY | 2024-12-01 08:11 | XMS_ITS | Continuity of Care Document ---
Author Organization [facility], , [facility], OFFICE Address [address] [place] [address] [place] [address] Care Team Providers Care Correctional Medicine Physician Name Role Phone SUSHMA GIANG Primary Care Provider [facility] Data Warehousing Manager [facility] WE[employer] MANA[employer] OTHER Assessment No assessment recorded. Plan of Treatment Reminders Order Date Submit Date Provider Last Modified By Organization Details Last Modified Time Details Appointments LAB Follow -Up 2024 06:30A M [facility] Lab Not available Not available Not available Follow Up, 2024 10:00A M SUSHMA REYES PA-C Not available Not available Not available Lab CBC 2024 025 [facility], [address] [place] [address], [address], 11/17/2024 09:09:18 testos terone , total, serum 2024 025 [facility], [address] [place] [address], [address], 11/17/2024 09:09:18 pap, LB + HPV - Is this patien t taking hormon es (y/n)? IF yes, what type? 2024 025 [id number] [facility] (Pathology), [address] [place] [address], [address], 11/24/2024 13:29:36 HPV E6+E7 mRNA, qualit ative PCR, cervix - CC TO DOCTOR #[id number] [facility]OL[facility] GY [address] [facility], [address] [facility], [place], [address], 11/21/2024 14:19:00 Referral None record ed. Procedures None record ed. Surgeries None record ed. Imaging MAMMO, screen ing, tomosy nthesi s, bilate ral - 2nd Look Consul t/Diag Mammo/ US Breast /Guide d Asp/Br east Bx/Cli p Placem ent, as clinic ally indica tom. [address] [facility] (Imaging), [address], [place], [place], [address], 11/23/2024 07:55:29 Medication Orders None record ed. Patient TargetsNo targets recorded. Patient InstructionsNo instructions recorded. Reason for Referral None Reported. Results Created Date Observation Date Name Description Value Unit Range Abnormal Flag Note LastModifiedBy Organization Detail LastModifiedTime 10/31/19 25 09/07/2024 XR, chest No observ ation record ed. [address], [address], 11/01/2024 08:23:13 11/10/19 25 09/22/2024 US, abdom en No observ ation record ed. [address], [address], 11/22/2024 13:30:43 11/23/1911/23/2024 MAMMO , scree concepcion, tomos ynthe sis, bilat eral MAMMO, SCREEN , MADDI, BILAT: 11/23/19. BI-RAD S: 1 CLINIC AL: 34-yea r old Female for Bilate ral Screen ing Mammog garth. Stephanie Salcido lifeti me risk of 22.2%. Tulio t report ed family histor y of breast cancer : mother . Last clinic al breast exam date is unknow n. PRIOR EXAMS: This is a baseli ne mammog garth. MAMMOG CARLEY TECHNI QUE: 3D mammog carley (tomos ynthes is) and 2D mammog carley (C-vie w) images are genera tom. Images review ed with a CAD system . DENSIT Y B. There are scatte red areas of fibrog landul ar densit y. MAMMOG CARLEY FINDIN GS Bilate ral: No suspic ious mass, asymme try, microc alcifi cation , or other abnorm ality seen. CONCLU SIONNo eviden ce of malign crispin. RECOMM ENDATI ONS Bilate ralAnn ual screen ing mammog carley beginn ing at age 40. ADMINI STRATI VE: A lay summar y was mailed to your patien omer umanzor the result s and recomm endati ons for follow -up. OVERAL L ASSESS MENT CATEGO RY BI-RAD S-1: Negati ve. The [employer] recomm ends annual screen ing mammog carley beginn ing at age 40 for women with averag e risk of breast cancer . ELECTR ONICAL LY SIGNED : Josep Phan ms, M.D. on 2024 at 07:55: 04 AM Luis Armando Boyle jamee: Josep Phan ms [facility] (Imaging) [address], [place], [address], 11/23/2024 17:13:14 Result Notes None recorded. Problems Name Problem SNOMED Code Status Onset Date Resolution Date Notes Provider Name and Address Organization Details Recorded Time Morbid obesity 121917678 Active 2015 Litzy Walker NP [address] [place] [address] [place], [address], [facility] 6 14:35:00 Contraception care Active 2016 Dariela Roa PA-C [address] [place] [address] [place], [phone], [facility] 7 14:40:18 Family history of breast cancer 782639105 Active 2016 Dariela Roa PA-C [address] [place] [address] [place], [phone], [facility] 7 14:40:20 Pancreatitis 75399194 Active 2023 Kathryn Caballero LPN null, [facility] 4 10:54:36 Steatosis of liver 312660326 Active 2024 SUSHMA REYES PA-C [address] [place] [address], [phone], [facility] 5 13:30:35 Problem Notes None recorded. Procedures Surgical History Date Name Laterality Status Provider Name and Address Organization Details Recorded Time 05/20/20 Depression Screening completed JANUARY [facility]ADE[facility]YOLANDA [facility], [address], [phone], [facility] 05/20/2023 10:14:51 05/20/20 prevention-annual alcohol misuse screening completed JANUARY [facility]ADE-YOLANDA [facility], [address], [address], [facility] 05/20/2023 10:14:56 cholecystectomy completed Estefania Hodges PA-C [address] [place] [address], [phone], [facility] 11/29/2023 14:54:51 Imaging Results None recorded. Procedure Notes None recorded. Medical Equipment None [...] Available Not Available Vitals Date Recorded Body weight Body mass index (BMI) Body height Oxygen saturation Oxygen saturation in Arterial blood by Pulse oximetry Heart rate Systolic blood pressure Diastolic blood pressure Provider Name and Address Organization Details Last Updated DateTime 480411 g 52.3 kg/m2 165.1 cm 98 % 98 % 72 /min 106 mm[Hg] 60 mm[Hg] [facility] 15:33:06 Social History Question Answer Notes LastModified by Organizat ion Details LastModified Time Tobacco Smoking Status Never Smoker [facility]/16/[facility] [place] [facility] 11/16/2024 15:28:18 What Is Your Level Of Alcohol Consumption? Occasional No Alcohol Over summer05/20/23[email or web address] Information not available 05/20/2023 Do You Wear A Helmet When Biking? Yes [email or web address] Information not available 11/16/2024 What Is Your Level Of Caffeine Consumption? Occasional No Caffiene Over summer05/20/23 1 A Day [email or web address] Information not available 11/16/2024 How Much Tobacco Do You Chew? None Information not available 10/25/2015 Are You Currently Employed? Yes [email or web address] Information not available 05/20/2023 What Type Of Diet Are You Following? REGULAR [email or web address] Information not available 05/20/2023 Which Illicit Or Recreational Drugs Have You Used? 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 No [email or web address] Information not available 05/20/2023 Are There Any Guns Present In Your Home? No Information not available 10/25/2015 Do You Use Insect Repellent Routinely? Yes [email or web address] Information not available 11/16/2024 Live Alone Or With Others? With Others Information not available 03/02/2017 Patient Has Health Care Proxy Signed And In Chart Yes Given To Pt 05/20/23 [email or web address] Information not available 05/21/2023 Marital Status Single [email or web address] Informatio n not available 10/25/2015 Mosquito Repellent Used Routinely No Information not available 10/25/2015 What Was The Date Of Your Most Recent Tobacco Screening? 08/26/2023 [email or web address] Information not available 08/26/2023 How Many Children Do You Have? 0 Information not available 10/25/2015 Do You Use Your Seat Belt Or Car Seat Routinely? Yes [email or web address] Information not available 11/16/2024 Seat Belts Used Routinely No More Than Half The Time Information not available 10/25/2015 Are You Sexually Active? No Information not available 03/02/2017 Smoke Alarm In Home Yes Information not available 10/25/2015 Do You Have Smoke And Carbon Monoxide Detectors In Your Home? Yes [email or web address] Information not available 05/20/2023 Are You Passively Exposed To Smoke? No [email or web address] Information not available 05/20/2023 General Stress Level Medium Work Related- Was Working 60hrs/week Information not available 10/25/2015 Do You Use Any Illicit Or Recreational Drugs? No [email or web address] Information not available 05/20/2023 Do You Use Sunscreen Routinely? Yes [email or web address] Information not available 11/16/2024 Do You Or Have You Ever Used Any Other Forms Of Tobacco Or Nicotine? No [email or web address] Information not available 05/20/2023 Sex: Unknown Functional Status Question Answer Note LastModified by Organization D etails LastModified Time What is your exercise level? Moderate [email or web address] Information not available 05/20/2023 Mental Status None [...] preservative free, adsorbed 6 completed Not Available [facility] 11/04/2019 02:34:59 Influenza, split virus, trivalent, preservative 5 completed [facility] 10/25/2015 11:24:25 Influenza, split virus, quadrivalent, PF 3 completed Isaura Rosas. [address] [place] [address], [phone], [facility] 08/26/2023 11:04:08 COVID-19, mRNA, LNP-S, bivalent, PF, 50 mcg/0.5 mL or 25mcg/0.25 mL dose 1 completed BONI Koo [facility] 08/26/2023 09:25:55 COVID-19, mRNA, LNP-S, bivalent, PF, 50 mcg/0.5 mL or 25mcg/0.25 mL dose 1 completed BONI Koo [facility] 08/26/2023 09:26:03 COVID-19, mRNA, LNP-S, bivalent, PF, 50 mcg/0.5 mL or 25mcg/0.25 mL dose 1 completed BONI Koo [facility] 08/26/2023 09:26:10 COVID-19, mRNA, LNP-S, bivalent, PF, 50 mcg/0.5 mL or 25mcg/0.25 mL dose 2 completed BONI Koo [facility] 08/26/2023 09:26:19 Past Encounters Encounter ID Performer Location Encounter Start Date Encounter Closed Date Diagnosis/Indication Diagnosis SNOMED-CT Code Diagnosis ICD10 Code Diagnosis Note [id number] SUSHMA DRAKE PA-C , [facility], OFFICE [address] [place], [place] [address] 11/16/2024 15:18:48 11/17/2024 13:19:01 Adult health examination 171994540 Z00.00 USPSTF guidelines reviewedPa p- will do today/obta inedMammo- mom hx breast ca--double mastectomy age 37. Pt to starts screening. [place]- declines family hx Vaccines-U TDLabs-UTD Blood pressure- WNLEncoura ged regular dental and vison examinatio ns. In weight loss clinic through [facility] at [place] [address] 0lbs,exerc ising Depression screening 171 888931 Z13.31 depression screening tool administer ed. neg. Screening for alcohol abuse 068302322 Z13.39 Alcohol use screening tool administer ed. neg. Screening for malignant neoplasm of cervix 427605080 Z12.4 Obtained Screening mammography 24 962008 Z12.31 Early screening Morbid obesity 683783471 E66.01 Seeing [facility] bariatric medicine Irregular periods 417339 07 N92.6 Periods q3 weeks with intermitte nt dizziness, signs of Hirsutism. Check CBC, testerone levels; consider pelvic USBMI 52.3 Health Concerns Section Related Observation LastModified by Organization Detai ls LastModified Time None Recorded Concern Status LastModified by Organization Details LastModified Time None Recorded Payers Encounter Date Sequence Insurance Name Policy Number Policy Gallego Covered Member ID Gallego Member ID Guarantor Name 11/16/[address] [place] [address] [id number] Emma Almanza [id number] Emma Almanza Notes Date Note Type Note Provider Name and Address Organization Details Recorded Time 11/16/2024 text/html Risk Assessment and Lifestyle Change [...] Presents to establish care today works at [employer] had nexplanonevery 3 weeks period SH:None FHno changes SUSHMA SANDHU PA-C [address] [place] [address], [phone], [facility] 11/17/2024 09:10:18 OBGyn Episode No OBEpisode recorded.
--- NOTE | 2024-12-01 08:30 | A.OFFVIS_ITS ---
VS Expanded 12/01/24 08:44 Height 5 ft 5 in Weight 311 lb 6 oz BMI 51.8 Body Fat % 69.8 Body Fat Mass 217.4 Fat Free Mass 94 Visceral Fat Rating 30 Body Water % 20.7 Body Water Mass 64.5 Basal Metabolic Rate/Score 1,284 Intake Visit Reasons: TV Pre Op LSG 12/19/24 Allergies No Known Allergies Allergy (Verified 12/01/24 08:31) Medication List - Last Reconciled 12/01/24 by Frederci Gatica MD cholecalciferol (vitamin D3) 125 mcg PO DAILY ibuprofen 200 mg PO Q6H PRN melatonin mg PO .prn ondansetron 4 mg PO Q12H pantoprazole 40 mg PO DAILY polyethylene glycol 3350 17 grams PO DAILY sucralfate 10 mL PO BID thiamine HCl (vitamin B1) 100 mg PO DAILY HPI HPI TV Pre Op LSG 12/19/24: Details: Start time: 8.22am, End time: 8.56am ?I spent 29 minutes speaking with the patient on the phone plus an additional 5 minutes reviewing and updating records for a total of 34 minutes HPI Comments Details: Overall weight loss: 25.8lbs, or 7.65% TBWL Is doing 4.5 premade Premier shakes per day or 5 powdered Premier shakes (2 x1 scoop, 2 x 1.5 scoops and one with two scoops) PFSH Medical History Back pain Insomnia Morbid obesity No known health problems Surgical History S/P ERCP (12/02/23) History of laparoscopic cholecystectomy (~11/29/23) Family History Mother Breast cancer Thyroid condition Depression affecting Father Family history unknown Social History Household Members: None Housing: Condominium Are you a primary long term acute care registered nurse to a significant other at home: No Do you presently have visiting nurse or other home services: No Comment: counts correct Patient Tobacco Use Status: Never used Tobacco Second Hand Smoke Exposure: No Advance Directives Date on File: 12/07/23 service: No Telehealth Telehealth Telehealth Platform: Telephone Location of provider rendering services: practice address Location of patient: address on file Patient Identification confirmed using: Name, : Yes Telehealth method: voice only Patient verbally consented to treatment: Yes Patient verbally consented to billing insurance company: Yes Patient informed of any privacy concerns related to visit: Yes Minutes spent on Phone/Video with Pt.: 34 Assessment & Plan Assessment & Plan (1) Morbid obesity: Code(s): E66.01 - Morbid (severe) obesity due to excess calories Category: Medical Plan: 1. Plan for lap sleeve gastrectomy including upper GI endoscopy. All tests has been completed and reviewed and the patient is cleared for the surgery. ?If diaphragmatic or ventral hernias are present at time of surgery, these will be repaired laparoscopically as well. Risks and complications were discussed in detail including possible conversion to an open procedure, anastomotic leak, bleeding requiring transfusion, small bowel obstruction, , DVT and pulmonary embolism, cardiac, or pulmonary complications, as manager intermediate complications such as anastomotic ulcer, insufficient weight loss and vitamin deficiencies. I emphasized the importance of close follow-up, adherence to instructions and good communication. So far she has proven to be an excellent communicator and very compliant with all our directions accomplishing a great weight loss. I believe that she is an excellent candidate and she is ready. 2. Preop prescriptions were provided and explained the purpose of each one. Need to be purchased preop. Start Pantoprazole now as you get it from the pharmacy, 1 pill per day. Sucralfate and Zofran are for after surgery as needed. 3. Bowel prep: please do 7 packets ?of Miralax mixing each one with a an 8oz glass of water, crystal light, gatorade zero, or propel ?on 12/17/24 and the same amount on 12/18/24. The Miralax you begin with one packet at a time in 8oz water or crystal light, gatorade zero, or propel ?as early in the day as you can and you do them back to back until you finish them. Continue the protein shakes during ?the bowel prep. 4. Needs to purchase 1oz medicine cups . 5. Needs to purchase Children's liquid Tylenol for postop pain control. 6. She needs to stop all the Ibuprofen as of today 12/01/24. Avoid aspirin, motrin, Advil, Aleve, Meloxicam, Excedrin, Ibuprofen, Naproxyn. Tylenol is OK. 7. She needs to purchase the Celebrate 4:1 protein shakes or the Celebrate multivitamins from the hospital's gift shop. 8. Will do basic preop blood work-up any day between Wednesday12/11/24 and Wednesday12/15/24 fasting for 12 hours and is scheduled to see the Anesthesiologist prior to the day of surgery. 9. Importance of adherence to postop folllow-up and recommendations was underscored and she understands that. 10. Continue to avoid food and bars and create an aggressive meal plan with the [employer] rogelio with either the premade Premier or powdered Premier shakes and send me a screenshot of the plan you will create 11. No soups, broths or V8 12. The patient's?medical?history has been reviewed and they are considered low risk for post op DVT and therefore DVT prophylaxis is not considered necessary. Travel after surgery was reviewed. The patient has not disclosed any travel plans during the first 30 days after surgery and they have been advised that w ithin the first 30 days after surgery any bus, plane, train or car travel over 2 hours in duration is contraindicated due to the possibility of developing blood clots from immobility. Any travel, needs to include periods of ambulation of 10 minutes in duration every 2 hours.? Patient was instructed to discuss any plans for travel during this period with their bariatric surgeon.? 13. Please take at the day of surgery the following medications: None 14. Stop any control pills and don't use them for one month after surgery 15. Absolutely no smoking or vaping, or marijuana until the surgery and for at least the first 4 weeks. Only nicotine patches are allowed. 16. Send me weight measurements on Wednesday12/02/24, 12/09/24 and 12/16/24 and then on Wednesday12/19/24, the day of surgery before you go to the hospital. 17. Avoid any steroids by mouth for any reason. Let me know if someone prescribes them to you 18. These instructions supersede anything else you read in the handbook, anything you watched in videos or classes or you were told by any other provider. If there is any conflict, you follow the above instructions and nothing else. Orders: Orders Comprehensive Met. Panel Today E66.01 - Morbid (severe) obesity due to excess calories Prothrombin Time INR Today E66.01 - Morbid (severe) obesity due to excess calories Partial Thromboplastin Time Today E66.01 - Morbid (severe) obesity due to excess calories Hemoglobin A1c Today E66.01 - Morbid (severe) obesity due to excess calories Lipid Panel Today E66.01 - Morbid (severe) obesity due to excess calories Insulin Today E66.01 - Morbid (severe) obesity due to excess calories TSH reflex Free T4 Today E66.01 - Morbid (severe) obesity due to excess calories Type and Screen Today E66.01 - Morbid (severe) obesity due to excess calories C Reactive Protein Today E66.01 - Morbid (severe) obesity due to excess calories Complete Blood Count Auto Diff Today E66.01 - Morbid (severe) obesity due to excess calories Medications: New pantoprazole 40 mg PO DAILY 90 tabs 0RF K21.9 - Gastro-esophageal reflux disease without esophagitis sucralfate 10 mL PO BID 600 mL 2RF K21.9 - Gastro-esophageal reflux disease without esophagitis ondansetron Only take one every 12 hours as needed if you have nausea 4 mg PO Q12H 20 tabs 0RF nausea and vomiting R11.0 - Nausea polyethylene glycol 3350 Mix each measuring cup with 8oz of water, Crystal light, or Gatorade zero, or Propel and do 7 measuring cups on 12/17/24 and another 7 measuring cups on 12/18/24 17 grams PO DAILY 238 grams 0RF Z01.818 - Encounter for other preprocedural examination
[2024-12-01 08:44] VITALS: BMI 51.8
== END 2024-12-01 08:57 | disposition home or self-care (01) ==
LOC: HO.HBS 08:09
PROVIDERS: PCP Family Medicine; Visit Provider Surgery
DX: E66.01 Morbid (severe) obesity due to excess calories (principal)
CPT/HCPCS: 99499

== ENCOUNTER → 2024-12-13 07:19 | Outpatient (BNVA) | payer OTHER, SELFPAY | PROVIDERS: Visit Provider Surgery ==

== ENCOUNTER 2024-12-19 06:04 | Day surgery (SDC) | payer OTHER, SELFPAY ==
[2024-12-01 12:36] VITALS: BMI 51.8
[2024-12-13 07:17] LABS: MANUAL DIFF FLAG NO
[2024-12-13 07:52] LABS: Basophils Percent Auto 0.5 % (0-2); Eosinophils Absolute Auto 0.1 X10*3/uL (0.0-0.4); Eosinophils Percent Auto 0.8 % (0-4); Hematocrit 41.8 % (37.0-47.0); Hemoglobin 13.5 g/dl (12.0-16.0); Imm Gran Abs Auto 0.02 X10*3/uL (0.00-0.03); Imm Gran Pct Auto 0.3 % (0.0-0.4); Lymphocytes Absolute Auto 1.4 X10*3/uL (1.2-4.9); Lymphocytes Percent Auto 23.9 % (20-40); Mean Corpuscular HGB Conc 32.3 g/dl (31.0-35.0); Mean Corpuscular Hemoglobin 28.7 pg (27.0-33.0); Mean Corpuscular Volume 88.9 fL (80.0-98.0); Mean Platelet Volume 11.4 fL (9.4-12.3); Monocytes Absolute Auto 0.3 X10*3/uL (0.1-1.2); Monocytes Percent Auto 5.5 % (2-11); Neutrophils Absolute Auto 4.2 x10*3/uL (2.0-8.3); Platelet Count 201 X10*3/uL (160-400); Red Cell Distribution Width 13.1 % (11.0-16.0)
[2024-12-13 08:00] LABS: Prothrombin Time 12.1 SEC (10.9-12.4)
[2024-12-13 08:03] LABS: Estimated Average Glucose 94 mg/dL; Hemoglobin A1C 107.1985 umol/L; Hemoglobin A1c % 4.9 % (<6.0); Partial Thromboplastin Time 32.3 SEC (26.0-36.8); Total Hemoglobin (HGBA1C) 3558.0324 umol/L
[2024-12-13 08:22] LABS: Alanine Aminotransferase 56 U/L (0-31); Albumin Level 3.9 g/dL (3.5-5.0); Anion Gap 14 (12-20); Aspartate Amino Transferase 35 U/L (5-31); Bilirubin Total 0.6 mg/dL (0.0-1.0); Blood Urea Nitrogen 14 mg/dL (9-16); C Reactive Protein 2.42 mg/dL (< or = 0.50); Calcium 9.3 mg/dL (8.4-10.2); Carbon Dioxide 27 mmol/L (22-29); Chloride 107 mmol/L (96-108); Cholesterol 115 mg/dL (<200); Creatinine Clr Calc Pharmacy 165.3; Estimated Glomerular Filt Rate > 60; Glucose Random 85 mg/dL (60-115); HDL Cholesterol 39 mg/dL (>40); LDL Cholesterol Calculated 63 mg/dL (<100); Potassium 4.5 mmol/L (3.3-5.1); Sodium 143 mmol/L (135-145); Total Protein 7.5 g/dL (6.5-8.0); Triglycerides 66 mg/dL (<150)
[2024-12-13 08:33] LABS: Insulin 7 uU/mL (2-29); TSH reflex Free T4 2.05 uIU/mL (0.32-4.0)
[2024-12-13 08:34] LABS: Alkaline Phosphatase 92 U/L (39-117)
--- NOTE | 2024-12-18 10:17 | P.CONAN_ITS ---
Documented by User: Patricia Rankin NP 12/18/24 10:18 HPI - Anesthesia Eval Consult details Narrative: 34yo F for Gastrectomy Sleeve,EGD,possibel Diaphragmatic Hernia,possible Ventral Hernia,possible Open PMFSH Active Problems Active Problems: All Active Problems Vitamin B1 deficiency (Acute) S/P laparoscopic cholecystectomy (Acute) Back pain (Acute) Insomnia (Acute) Morbid obesity (Acute) Past Medical History Medical History Anxiety Back pain Insomnia Morbid obesity Family History Family History Mother Breast cancer Thyroid condition Depression affecting Father Family history unknown Family history of problems with anesthesia: No Surgical History Surgical History History of esophagogastroduodenoscopy (EGD) (09/20/24) S/P ERCP (12/02/23) History of laparoscopic cholecystectomy (~11/29/23) History of Problems with Anesthesia: No Social History Social History Household Members: None Housing: Condominium Are you a primary home care manager rn to a significant other at home: No Do you presently have visiting nurse or other home services: No Comment: counts correct Patient Tobacco Use Status: Never used Tobacco Second Hand Smoke Exposure: No Use of substances other than those prescribed or required for medical reasons: No Have you been hit, kicked, punched, or otherwise hurt by someone within the past year? If so, by whom?: No Are you DNR?: No Advance Directives: Yes Advance Directives Information Provided: No Advance Directives on File: Yes Advance Directives Date on File: 12/07/23 Recently lost weight without trying: No Nutrition Risks: No Nutritional Risk Patient : No FDLMP: 11/04/2024 : No Poor oral hygiene: No service: No Meds Allergies Allergy/AdvReac Type Severity Reaction Status Date / Time No Known Allergies Allergy Verified 12/19/24 06:13 Home Medications ?Medication ?Instructions ?Recorded ?Confirmed ?Last Taken ?Type ibuprofen 200 mg capsule 200 mg PO Q6H PRN Pain (Scale 08/29/24 12/19/24 Unknown History Score 1-3) melatonin 5 mg capsule mg PO .prn 08/29/24 12/01/24 Unknown History Exam Height,Weight and Vital Signs: Height 5 ft 5 in Weight 141.339 kg Pertinent Lab Results Pertinent Lab Results: Laboratory Tests 12/13/24 12/13/24 07:07 07:16 WBC 6.0 RBC 4.70 Hgb 13.5 Hct 41.8 MCV 88.9 MCH 28.7 MCHC 32.3 RDW 13.1 Plt Count 201 MPV 11.4 Immature Gran % (Auto) 0.3 Neut % (Auto) 69.0 Lymph % (Auto) 23.9 [place] % (Auto) 5.5 Eos % (Auto) 0.8 Baso % (Auto) 0.5 Lymph # (Auto) 1.4 [place] # (Auto) 0.3 Eos # (Auto) 0.1 Baso # (Auto) 0.0 Abs Immat Gran (auto) 0.02 Absolute Neuts (auto) 4.2 Absolute Nucleated RBC 0.000 Nucleated RBC % (auto) 0.0 PT 12.1 INR 1.0 APTT 32.3 Sodium 143 Potassium 4.5 Chloride 107 Carbon Dioxide 27 Anion Gap 14 BUN 14 Creatinine 0.68 Estim Creat Clear Calc 165.3 Estimated GFR > 60 Random Glucose 85 Estimat Average Glucose 94 Hemoglobin A1c % 4.9 Insulin Level 7 Calcium 9.3 Total Bilirubin 0.6 AST 35 H ALT 56 H Alkaline Phosphatase 92 C-Reactive Protein 2.42 H Total Protein 7.5 Albumin 3.9 Triglycerides 66 Cholesterol 115 LDL Cholesterol, Calc 63 HDL Cholesterol 39 L TSH 2.05 Blood Type A Positive Antibody Screen NEGATIVE Narrative Narrative: EKG 08/2024 Vent. Rate : 078 BPM Atrial Rate : 078 BPM P-R Int : 114 ms QRS Dur : 078 ms QT Int : 388 ms P-R-T Axes : 051 067 072 degrees QTc Int : 442 ms Normal sinus rhythm with sinus arrhythmia Normal ECG No previous ECGs available Assessment and Plan Assessment Anesthesia Assessment: Chart Reviewed Final Anesthetic Review Family History of Problems with Anesthesia: No History of Problems with Anesthesia: No Documented by User: Mari Luciano MD 12/19/24 08:03 [facility] Past Medical History Medical History Anxiety Back pain Insomnia Morbid obesity Family History Family History Mother Breast cancer Thyroid condition Depression affecting Father Family history unknown Surgical History Surgical History History of esophagogastroduodenoscopy (EGD) (09/20/24) S/P ERCP (12/02/23) History of laparoscopic cholecystectomy (~11/29/23) Social History Social History Household Members: None Housing: Condominium Are you a primary home care manager rn to a significant other at home: No Do you presently have visiting nurse or other home services: No Comment: counts correct Patient Tobacco Use Status: Never used Tobacco Second Hand Smoke Exposure: No Use of substances other than those prescribed or required for medical reasons: No Have you been hit, kicked, punched, or otherwise hurt by someone within the past year? If so, by whom?: No Are you DNR?: No Advance Directives: Yes Advance Directives Information Provided: No Advance Directives on File: Yes Advance Directives Date on File: 12/07/23 Recently lost weight without trying: No Nutrition Risks: No Nutritional Risk Patient : No FDLMP: 11/04/2024 : No Poor oral hygiene: No service: No Meds Allergies Allergy/AdvReac Type Severity Reaction Status Date / Time No Known Allergies Allergy Verified 12/19/24 06:13 Home Medications ?Medication ?Instructions ?Recorded ?Confirmed ?Last Taken ?Type ibuprofen 200 mg capsule 200 mg PO Q6H PRN Pain (Scale 08/29/24 12/19/24 Unknown History Score 1-3) melatonin 5 mg capsule mg PO .prn 08/29/24 12/01/24 Unknown History Exam Airway Mallampati Class: II TM Dist: >3cm Neck ROM: Full Loose/Missing/Broken Teeth: No Heart: RRR Lungs: CTA Assessment and Plan Assessment Anesthesia Assessment: Anesthesia Plan Discussed Final Anesthetic Review NPO: Yes ASA Class: III Final Preanesthetic Review: Meds/Allgs Chart Reviewed, Consent Obtained/Reviewed and Anes Risks/Benef Reviewed Patient Risk: Intermediate Procedure Risk: Intermediate Anesthetic Plan Anesthetic Plan: GA Disposition: Standard PACU
[2024-12-19] VITALS (14 sets, daily range): BP systolic 104–125; BP diastolic 47–86; PULSE 66–94; RESP 16–20; TEMP 36–37; O2SAT 95–100; BMI 48.9; BMI 51.5
[2024-12-19] MEDS: Lactated Ringers 1,000 ML 100 ML IVCONT ×3 (06:19→21:31)
[2024-12-19] MEDS: Lactated Ringers 1,000 ML 999 ML IV (06:19)
[2024-12-19] MEDS: Aprepitant 32 MG/4.4 ML VIAL IVPUSH (06:59)
[2024-12-19 07:22] LABS: UPreg QC Valid YES; Urine Pregnancy NEGATIVE (NEGATIVE)
--- NOTE | 2024-12-19 07:26 | MHC.SHP ---
Pre-Procedural Eval Section A - 24 Hr Update-Section A only Date of Service: 12/19/24 The patient is an INPATIENT: No The patient has been examined within 24 hours of the surgical procedure. The History & Physical has been completed within 30 days and I have reviewed it.: Yes Section B - Complete if H&P > 30 days Chief Complaint: morbid obesity Relevant Family History (Specify if Yes): No Present Medications: None Medical History: No relevant PMH History of Previous Operations: No relevant previous surgery Allergies: Allergies Allergy/AdvReac Type Severity Reaction Status Date / Time No Known Allergies Allergy Verified 12/19/24 06:13 Review of Systems Sugical H&P ROS: Negative: Constitution, Cardiovascular, Respiratory, Neurological, Psychiatric, Hem-Onc, Allergic/Immunologic, Gastrointestinal, Genitourinary, Musculoskeletal, Integumentary, Endocrine and Eyes/Ears/Nose/Throat Exam Surgical H&P Exam: Normal: HEENT, Normal: Heart, Normal: Lungs, Normal: Extremities, Normal: Abdomen, Normal: Skin and Normal: Neurological Plan Diagnosis/Plan: Unchanged I have reviewed the history and physical and performed a pertinent physical examination on my patient. No changes have occurred unless specified. Time Spent With Patient Time: Total time managing care of this patient today ____ minutes.
--- NOTE | 2024-12-19 07:27 | P.BOP_ITS ---
Brief Operative Note Date of Service: 12/19/24 Pre-op diagnosis: Morbid obesity with comorbidities (see below) Post-op diagnosis: same Procedure: INITIAL PATIENT BMI ON PRESENTATION AT OUR OFFICE: 56.1 kg/m2 LAST BMI BEFORE SURGERY:50.5 kg/m2 COMORBIDITIES: Insomnia, back pain, anxiety, GERD, liver fibrosis ?The patient presented to the Weight Management Program with significant obesity that was negatively impacting the patient's comorbidities as listed above.? The program is a phased program with a special focus on preoperative medical weight management to promote substantial weight loss and prepare the patients for the second phase of the program: bariatric surgery. The patient participated in an intensive weekly lifestyle ?intervention and exercise program during which the patient ?has lost between the initial office visit and the last preoperative visit 34lbs, or 10.2% of initial actual body weight. It was deemed appropriate for the patient to now have bariatric surgery. In light of the current Covid-19 pandemic and the well documented strong association of obesity and increased risk of worse outcomes if infected with Covid-19 (REFERENCES: https://pubmed.ncbi.nlm.nih.gov/50540815/ ,? h ttps://pubmed.ncbi.nlm.nih.gov/86590289/ ), any delay in undergoing bariatric surgery may lead to the patient's worsening health condition and increased?risk of more severe Covid-19 disease if infected. In addition a recent?study from [facility] published in [facility] [facility] on 10/13/2021 ([email or web address]) found that, among patients with obesity, substantial weight loss achieved with surgery was associated with improved outcomes of COVID-19 infection. The findings suggest that obesity can be a modifiable risk factor for the severity of COVID-19 infection. In addition, the patient met the BMI-criteria for bariatric surgery based on the BMI on initial presentation. The patient should not be penalized for achieving such weight loss because ?it is not sustainable long-term without surgical intervention and it was achieved in preparation for bariatric surgery ?under my direction and based on my published research ([email or web address]).[email or web address] and? https://www.soard.org/article/[email or web address](71)58972-X/pdf ) ?that a 10% preoperative weight loss improves long-term weight loss after surgery and reduces perioperative complications.? Insurance carriers such as [facility] have endorsed my recommendations ?and have included in their policies criteria to include a 10% preoperative weight loss requirement. PROCEDURE: Esophago-gastroscopy, laparoscopic lysis of adhesions, laparoscopic sleeve gastrectomy and laparoscopic gastropexy INDICATIONS: This is a 34 year-old female who was electively scheduled for laparoscopic, possibly open sleeve gastrectomy. The risks and complications of the procedure were discussed with the patient in advance, particularly the possibility of ; pulmonary embolism; staple line leak; bleeding; GERD; cardiac, pulmonary, or renal complications; as well as long-term problems such as insufficient weight loss, vitamin deficiency, strictures, or ulcers. The patient understood all the risks, and was in agreement to proceed with surgery. DESCRIPTION OF PROCEDURE: After informed consent was obtained from the patient, the patient was given preoperative antibiotics, and was transferred to the operating room. After successful induction of general anesthesia, pneumatic compression devices were placed on both lower extremities. An upper endoscopy was performed next. The oropharynx and esophagus appeared to be within normal limits. There was no diaphragmatic hernia present consistent with the findings of the preoperative upper GI. The stomach was entered. Then after all fluid and air were suctioned and the stomach was fully decompressed, the scope was withdrawn and secured in the mid esophagus. The patient was then prepped and draped in the usual sterile manner, and abdominal access was established at the right upper quadrant with the Mehul technique. A 12 mm blunt port was inserted, and the abdomen was insufflated with CO2 to a pressure of 15 mmHg. Under direct visualization, additional ports were placed, specifically two 5 mm Versi-step ports to the left upper quadrant, and a 5 mm Versi-Step port to the right upper quadrant. 1% lidocaine plain was used to infiltrate all port sites as well as all fascia defects. Following that, the patient was placed in a steep reverse Trendelenburg position. An additional 5 mm port was placed to the right flank for the Mediflex retractor that was used to retract the left lobe of the liver. The gastro-esophageal fat pad was opened with the ultrasonic device (Th underbeat, Olympus) and the anterior esophagus and hiatus were exposed. The angle of His was opened with the ultrasonic device the fundus of the stomach from any diaphragmatic and splenic attachments. I then opened the gastrocolic ligament between the transverse colon and the greater curvature of the stomach with the ultrasonic device to enter the lesser sac and facilitate the ligation of the short gastric vessels. I started at a mid-point along the greater curvature and using the Thunderbeat, all short gastric vessels were divided all the way to the angle of His until the left thao was completely dissected at its entirety. I then divided the gastro-colic ligament distally to a distance of about 3-4 cm proximal to the pylorus. There were extensive congenital adhesions between the pancreas and posterior gastric wall. Those were lysed completely with the ultrasonic device. Adhesiolysis took approximately 45 min to complete. The stomach was then divided transversely with two Endo JOANN-45 purple and three JOANN-60 articulating purple loads using the [employer] stapler and loads. Every effort was made that the gastric sleeve had a tubular shape and an even caliber throughout. Once the sleeve resection was completed, the staple line of the gastric sleeve was reinforced with Hemoclips. The resected stomach was retrieved without difficulty from the Mehul port. A gastropexy was then performed in order to prevent postoperative GERD and partial gastric volvulus. Several interrupted 2.0 Surgidac sutures were placed between the sleeve's staple line and the previously divided greater omentum and gastro-colic ligament using the Endo-Stitch device. ?An upper endoscopy was performed. There was no narrowing at the GE junction. The scope was easily advanced all the way to the pylorus which was clearly visualized. There was no narrowing anywhere and the sleeve's caliber was even throughout. The sleeve's staple line was inspected and there was no evidence of ischemia, bleeding or dehiscence. At that point the gastroscope was withdrawn from the patient?s mouth while we were decompressing the bowel and the stomach from any remaining air. I looked into the lesser sac to see how the sleeve was situating and it was situating well. There was no bleeding from the staple line, spleen, or short gastric vessels. The Mediflex retractor was removed, and the undersurface of the liver was inspected and there was no bleeding. The patient was placed in supine position. I closed the fascial defect of the 12 mm port site with a figure of eight #1 Polysorb suture. Then 30cc Ropivacaine plain with 10 mg of Dexamethasone were used to infiltrate the fascial closure as well as all skin incisions. At this point, the abdomen was deflated, all ports were removed under direct vision, and no bleeding was noted from any of the port sites. The skin incisions were irrigated with saline and were closed with 4-0 absorbable monofilament sutures. Steri-Strips and OpSites were used to cover all incisions. The patient was extubated and was transferred in stable condition to the recovery room for further care. I was present and performed all puente parts of the procedure. Ms. Arenas was the email marketing assistant. There were no residents to assist with this case. Dylan Gatica MD, PhD, FACS Surgeon: Frederic Gatica MD Anesthesia: GETA, local and other (TAP block) Was an Welding Machine Operator Thermit used for this Procedure?: No Welding Machine Operator Thermit: Tiki Arenas Estimated blood loss (mL): 10 IV fluids (mL): 2,100 Urine output (mL): 0 (No Schreiber to record output) Pathology: other (1) Stomach, 2) gastro-esophageal fat pad) Condition: stable Disposition: PACU
--- NOTE | 2024-12-19 07:30 | PM.PNGS ---
Subjective Subjective Date of Service: 12/20/24 Interval history: Feels well. Mild incisional pain. She is tolerating phase 1 bariatric diet Physical Exam Vital Signs: Vital Signs: Last Vital Signs Temp 97.9 F 12/19/24 06:41 Pulse 94 12/19/24 06:41 Resp 18 12/19/24 06:41 BP 125/86 12/19/24 06:41 Pulse Ox 98 12/19/24 06:41 O2 Del Method Room Air 12/19/24 06:41 BMI result Body Mass Index 48.9 GI: Inspection: Yes normal to inspection, Yes incision (clean, dry and intact) and Yes obesity Palpation (GI): Soft to palpation Extrem: Right lower extremity: normal to inspection (no calf tenderness) Left lower extremity: normal to inspection (no calf tenderness) Objective Data Active Medications Lactated Ringer's (Lr) 1,000 mls @ 100 mls/hr IVCONT .Q10H [facility] Last Admin: 12/19/24 06:19 Dose: 100 mls/hr Documented By: ACACIA Lactated Ringer's (Lr) 1,000 mls @ 999 mls/hr IV .Q1H1M [facility] Stop: 12/19/24 08:15 Last Admin: 12/19/24 06:19 Dose: 999 mls/hr Documented By: ACACIA Labs 12/20/24 05:59 12/20/24 05:59 Labs: Laboratory Results - last 24 hr 12/19/24 06:00 Urine Test NEGATIVE Procedures Date of Service Date of Service: 12/20/24 Progress Note: A&P Assessment and plan (1) Morbid obesity: Status: Acute Assessment and Plan: s/p laparoscopic sleeve gastrectomy, lysis of adhesions and gastropexy Doing well Will check am labs and if OK the patient will be discharged home (2) Back pain: Status: Acute (3) Insomnia: Status: Acute (4) GERD (gastroesophageal reflux disease): Status: Acute (5) Liver fibrosis: Status: Acute (6) Anxiety: Status: Acute (7) Congenital intra-abdominal adhesions: Status: Acute (8) S/P laparoscopic sleeve gastrectomy: Status: Acute Time Spent With Patient Time: Total time managing care of this patient today ____ minutes. Quality Stroke Does the patient have a stroke diagnosis?: No VTE Prior VTE?: No VTE Risk Level:: Surgical - moderate VTE Device Contraindication: N/A - Device Ordered VTE Drug Contraindication: Treatment Not Indicated
[2024-12-19] MEDS: ceFAZolin Sodium/Dextrose,Iso 2 GM/50 ML PIGGYBACK IV ×2 (07:40→13:33)
--- NOTE | 2024-12-19 09:58 | PM.DS ---
DS: Providers Provider Primary care physician: Unknown Physician DS: Diagnosis Discharge Diagnosis (1) Morbid obesity: Status: Acute (2) Back pain: Status: Acute (3) Insomnia: Status: Acute (4) GERD (gastroesophageal reflux disease): Status: Acute (5) Liver fibrosis: Status: Acute (6) Anxiety: Status: Acute DS: Summary Hospital Course Hospital Course: ADMITTING DIAGNOSIS: morbid obesity,?anxiety, liver fibrosis, GERD, back pain, insomnia ? DISCHARGE DIAGNOSIS: same, s/p laparoscopic sleeve gastrectomy and gastropexy ? PAST SURGICAL HISTORY:? S/P ERCP (12/02/23) History of laparoscopic cholecystectomy (~11/29/23) ? PROCEDURE: upper endoscopy, laparoscopic sleeve gastrectomy and gastropexy ? DISCHARGE SUMMARY: ? History of Present Illness: ? The patient is a?34 year-old woman with a BMI of?49 kg/m2 and associated co-morbidities as described above. The patient had extensive work-up, lost?43.2 lbs preoperatively and was electively scheduled for laparoscopic, possible open sleeve gastrectomy and gastropexy. Risks and complications of the surgery were discussed with the patient in advance, particularly the possibility of , pulmonary embolism, anastomotic leak, bleeding, bowel injury, GERD, cardiac, renal or pulmonary complications. The patient understood all the risks and was in agreement with the surgical plan. ? Hospital Course: ? The patient underwent an uneventful laparoscopic sleeve gastrectomy with gastropexy on the day of admission. Postoperatively, the patient was transferred to the surgical floor. The patient received IV Acetaminophen and IV dilaudid for pain control. Patient was started on bariatric phase 1 diet POD #0. On postoperative day one, the patient was feeling well without nausea, vomiting, fevers, or tachycardia. The patient had some mild incisional pain and the abdomen was soft.? ? On the morning of postoperative day one, the patient was continued on 1 ounce of water or ice every half hour. During the day, the patient did fairly well, having some incisional pain, but able to ambulate adequately and to tolerate liquids well. ? Since the patient is doing well, we decided that the patient was ready to be discharged. The patient was given instructions to follow-up with me next week and to call my office for any fever over 101, persistent abdominal pain, nausea, vomiting, GERD, symptoms of DVT such as calf tenderness, or leg swelling, or pulmonary embolism such as chest pain or shortness of breath.? The patient was also instructed to drink 40-60 ounces of liquids per day using the 1-ounce cups. The patient had been given prescriptions for Tylenol for pain, Zofran prn for nausea, and pantoprazole and carafate previously. The patient was encouraged to ambulate and use the incentive spirometer. The patient was allowed to shower, but no baths, and encouraged to stay active at home. All of these instructions were given to the patient personally. All questions were answered and the patient understood all instructions, the instructions were also given to the patient in print. Time Attestation Discharge Coordination Time (in mins): 30 Quality: Safe Use of Opioids Does Pt have an Active Cancer Diagnosis on the Problem List?: No Quality: Stroke Does the patient have a stroke diagnosis?: No Physical Exam Vital Signs: Vital Signs: Last Vital Signs Temp 98.6 F 12/19/24 09:45 Pulse 76 12/19/24 09:50 Resp 18 12/19/24 09:50 BP 115/62 12/19/24 09:50 Pulse Ox 100 12/19/24 09:50 O2 Del Method Room Air 12/19/24 09:50 O2 Flow Rate 6 12/19/24 09:45 BMI result Body Mass Index 48.9 DS: Data Data Completed and Pending Completed studies during hospitalization [Text1]: Procedures Dilation of Common Bile Duct with Intraluminal Device, Via Natural or Artificial Opening Endoscopic (11/26/23) Fluoroscopy of Biliary and Pancreatic Ducts using Low Osmolar Contrast (11/26/23) Resection of Gallbladder, Percutaneous Endoscopic Approach (11/26/23) Pending studies at discharge: Pending at discharge 12/19/24 09:06 Surgical [PTH] Routine Labs on day of discharge: Laboratory Results - last 24 hr 12/19/24 06:00 Urine Test NEGATIVE Discharge Plan Discharge Patient Disposition: Home, Self-Care Referrals: Physician,Unknown J [Primary Care Provider] - 1 Week Discharge Medications: Continued melatonin 5 mg capsule PO .prn pantoprazole 40 mg tablet,delayed release (DR/EC) 40 mg PO DAILY Qty: 90 0RF sucralfate 100 mg/mL suspension 10 ml PO BID Qty: 600 2RF ondansetron 4 mg tablet,disintegrating 4 mg PO Q12H Qty: 20 0RF Rx Instructions: Only take one every 12 hours as needed if you have nausea Discontinued thiamine HCl (vitamin B1) 100 mg tablet 100 mg PO DAILY Qty: 90 0RF cholecalciferol (vitamin D3) 125 mcg (5,000 unit) capsule 125 mcg PO DAILY Qty: 90 0RF ibuprofen 200 mg capsule 200 mg PO Q6H PRN (Reason: Pain (Scale Score 1-3)) polyethylene glycol 3350 17 gram/dose powder 17 g PO DAILY Qty: 238 0RF Rx Instructions: Mix each measuring cup with 8oz of water, Crystal light, or Gatorade zero, or Propel and do 7 measuring cups on 12/17/24 and another 7 measuring cups on 12/18/24 Activity Restrictions/Additional Instructions: No tub baths, sex or returning to work until discussed at first post op appointment. No alcohol, tobacco or illegal drug use. Continue to use incentive spirometer hourly while awake. Walk in home for 5- 10 minutes every 2 hours during the first week. Wear abdominal binder with activity. Follow all meal plan instructions from your bariatric surgeon. Review bariatric handbook and call with any questions. Discharge Instructions 1. Please call your doctor or come back to the emergency room should any new symptoms arise. 2. Activity: abstain from alcohol,? limited stair climbing, no bending, no driving, no exercise, no illicit substances, no lifting, no sex, no tub bath, no work. 4. Diet: follow your bariatric surgeons recommendations for advancing diet. 5. Dressing Change/Wound Care: Your incisions are covered with waterproof dressings. You can shower with these and pat dry. Do not rub over dressings or incisions. If the area is tender, you may apply an ice pack for short intervals (no more than 20 minutes on, followed by at least 20 minutes off). Do not apply heat. Do not use creams, lotions, or topical antibiotics unless instructed to do so by your surgeon. 6. Call your doctor if: - Your temperature exceeds 101.5 F - You experience excessive pain or swelling - You have an unexpected reaction to medication - You have excessive bleeding - You experience continued vomiting/nausea - Your incision begins to separate - Your incision shows signs of infection such as increased redness, swelling, excessive pain, heat, or drainage (light blood or clear fluid is normal) General instructions: No lifting greater than 10 lbs for the next 6 weeks[address] driving within 24 hours of taking narcotic pain medications. If you do not move your bowels in the next 2 days, please take milk of magnesia over the counter. Please follow the post op diet and do not advance your diet until you are seen in the office in about 2 weeks. Please walk around your home every hour or two to prevent blood clots from forming in your legs. You do not need to wake from sleeping to walk. Please sleep in a bed or couch to prevent kinking at the hips and knees. Please take your incentive spirometer (your lung cardiac sonographer) home with you and use it for the next few days to prevent pneumonias. You may shower, no hot tubs, baths or swimming pools. Please call the office with any questions or concerns such as increasing abdominal pain, fever, chills, shortness of breath, chest pain, leg pain or swelling, or redness or drainage from your incisions. Please make sure you are consuming 40-60 ounces of total fluids per day. Avoid all carbonation. Do not hesitate to contact the office with any questions at . The patient's medical history has been reviewed and they are considered low risk for post op DVT and therefore DVT prophylaxis is not considered necessary. Travel after surgery was reviewed. The patient has not disclosed any travel plans during the first 30 days after surgery and they have been advised that within the first 30 days after surgery any bus, plane, train or car travel over 2 hours in duration is contraindicated due to the possibility of developing blood clots from immobility. Any travel, needs to include periods of ambulation of 10 minutes in duration every 2 hours.? The patient was instructed to discuss any plans for travel during this period with their bariatric surgeon. Print Language: Wolof
--- NOTE | 2024-12-19 10:01 | PHA.MEDREC ---
Addendum entered by Shari Wells RPh 12/19/24 10:04: Reviewed by [facility]. Original Note: Pharmacy Consult ? Medication Reconciliation Pharmacy has completed the medication reconciliation. Reviewed med rec done by nursing.
[2024-12-19 11:53] LABS: Hematocrit 40.6 % (37.0-47.0); Hemoglobin 13.4 g/dl (12.0-16.0)
[2024-12-19 12:47] LABS: Anion Gap 18 (12-20); Blood Urea Nitrogen 12 mg/dL (9-16); Calcium 8.4 mg/dL (8.4-10.2); Carbon Dioxide 21 mmol/L (22-29); Chloride 105 mmol/L (96-108); Estimated Glomerular Filt Rate > 60; Glucose Random 110 mg/dL (60-115); Potassium 4.2 mmol/L (3.3-5.1); Sodium 140 mmol/L (135-145)
[2024-12-19] MEDS: Acetaminophen 1,000 MG/100 ML PIGGYBACK 16.7 MG IV ×2 (14:12→19:35)
[2024-12-19] MEDS: Metoclopramide HCl 10 MG/2 ML VIAL IVPUSH (14:55)
[2024-12-19] MEDS: Famotidine/PF 20 MG/2 ML VIAL IVPUSH (20:31)
[2024-12-20] MEDS: Acetaminophen 1,000 MG/100 ML PIGGYBACK 16.7 MG IV ×2 (00:06→05:34)
[2024-12-20 03:01] VITALS: BP 109/61; PULSE 79; RESP 16; TEMP 36.4; O2SAT 97
[2024-12-20] MEDS: Lactated Ringers 1,000 ML 100 ML IVCONT (05:36)
[2024-12-20 06:43] LABS: MANUAL DIFF FLAG NO
[2024-12-20 06:53] LABS: Basophils Percent Auto 0.1 % (0-2); Hematocrit 38.4 % (37.0-47.0); Hemoglobin 12.7 g/dl (12.0-16.0); Imm Gran Abs Auto 0.07 X10*3/uL (0.00-0.03); Imm Gran Pct Auto 0.7 % (0.0-0.4); Lymphocytes Absolute Auto 1.1 X10*3/uL (1.2-4.9); Lymphocytes Percent Auto 10.4 % (20-40); Mean Corpuscular HGB Conc 33.1 g/dl (31.0-35.0); Mean Corpuscular Hemoglobin 29.2 pg (27.0-33.0); Mean Corpuscular Volume 88.3 fL (80.0-98.0); Mean Platelet Volume 11.3 fL (9.4-12.3); Monocytes Absolute Auto 0.4 X10*3/uL (0.1-1.2); Monocytes Percent Auto 4.1 % (2-11); Neutrophils Absolute Auto 8.5 x10*3/uL (2.0-8.3); Neutrophils Percent Auto 84.7 % (45-73); Platelet Count 181 X10*3/uL (160-400); Red Blood Count 4.35 X10*6/uL (4.20-5.50); Red Cell Distribution Width 13.1 % (11.0-16.0); White Blood Count 10.1 X10*3/uL (4.8-10.8)
[2024-12-20 07:13] LABS: Anion Gap 15 (12-20); Blood Urea Nitrogen 8 mg/dL (9-16); Carbon Dioxide 21 mmol/L (22-29); Chloride 106 mmol/L (96-108); Estimated Glomerular Filt Rate > 60; Glucose Random 91 mg/dL (60-115); Potassium 4.2 mmol/L (3.3-5.1); Sodium 138 mmol/L (135-145)
[2024-12-20 07:33] VITALS: BP 143/63; PULSE 95; RESP 18; TEMP 36.3; O2SAT 99
[2024-12-20] MEDS: Famotidine/PF 20 MG/2 ML VIAL IVPUSH (08:29)
--- NOTE | 2024-12-20 09:04 | MHC.CM.PN ---
PT [facility] TO BEING SEEN BY CM [facility]
--- NOTE | 2024-12-20 10:15 | HO.POSTANES ---
Post Anesthesia Evaluation Post Anesthesia Evaluation Date of Service: 12/20/24 Vital Signs: Vital Signs Temp Pulse Resp BP Pulse Ox O2 Del Method 12/20/24 07:33 97.4 F 95 18 143/63 H 99 Room Air 12/20/24 06:45 Room Air 12/20/24 03:01 97.6 F 79 16 109/61 97 Room Air Anesthesia: General Endotracheal-GETA Mental Status: Awake Pain Control: Satisfactory Nausea/Vomiting: None Hydration: Adequate Anesthesia-Related Issues: No Anes. Related Issues
== END 2024-12-20 10:08 | disposition home or self-care (01) ==
LOC: HO.SSS 09:56 → HO.S3 12:05
PROVIDERS: Nurse Practitioner; Physician Assistant Surgical; Visit Provider Surgery
PROC: (CPT 43845; principal; 2024-12-19 07:30)
DX: E66.01 Morbid (severe) obesity due to excess calories (principal); Z68.43 Body mass index [BMI] 50.0-59.9, adult; K21.9 Gastro-esophageal reflux disease without esophagitis; R11.0 Nausea; Q43.3 Congenital malformations of intestinal fixation; K74.00 Hepatic fibrosis, unspecified; M54.9 Dorsalgia, unspecified; G47.00 Insomnia, unspecified; F41.9 Anxiety disorder, unspecified; Z79.1 Long term (current) use of non-steroidal anti-inflammatories (NSAID); Z79.899 Other long term (current) drug therapy; Z96.89 Presence of other specified functional implants; Z90.49 Acquired absence of other specified parts of digestive tract
CPT/HCPCS: 43775; 43659; 44180; 36415; 80048; 80053; 80061; 81025; 83036; 83525; 84443; 85014; 85018; 85025; 85610; 85730; 86140; 86850; 86900; 86901; 88304; 88305; 88307; 88342; A4649; C9145; J0131; J0690; J1100; J1171; J2003; J2250; J2371; J2405; J2704; J2765; J2795; J3010; J7120

== ENCOUNTER → 2024-12-19 06:04 | Outpatient (BNV) | payer OTHER, SELFPAY | PROVIDERS: Visit Provider Surgery | DX: E66.01 Morbid (severe) obesity due to excess calories (principal); Z68.43 Body mass index [BMI] 50.0-59.9, adult; K66.0 Peritoneal adhesions (postprocedural) (postinfection); Z98.84 Bariatric surgery status | CPT/HCPCS: 43659; 43775; 99024 ==

== ENCOUNTER 2024-12-26 09:50 | Outpatient (AMB) | payer OTHER, SELFPAY ==
--- NOTE | 2024-12-26 09:56 | MHC.OFFVISWM ---
VS Expanded 12/26/24 10:01 BP 133/53 L Blood Pressure Location Rt brachial Blood Pressure Position Sitting Pulse 93 Pulse Source Pulse Oximeter Temp 97.2 F Temperature Source Temporal Artery Scan Pulse Oximetry 98 Oxygen Delivery Method Room Air Height 5 ft 5 in Weight 283 lb 3.2 oz BMI 47.1 Body Fat % 53.2 Body Fat Mass 150.6 Fat Free Mass 132.4 Visceral Fat Rating 16.0 Body Water % 33.6 Body Water Mass 95.0 Muscle Mass/Score 125.8 Basal Metabolic Rate/Score 1,951 Intake Visit Reasons: (OV) PO LSG 12/19/24 Allergies No Known Allergies Allergy (Verified 12/19/24 06:13) HPI Comments Details: Patient is a pleasant 34-year-old female who underwent sleeve gastrectomy performed on 12/19/2024. Tolerating 3 pure protein shakes with half scoop each in 8 oz of water and a total of 50-55 oz of fluids per day. She has moved her bowels. Denies any significant pain. [facility] Medical History Anxiety Back pain Insomnia Morbid obesity Surgical History History of esophagogastroduodenoscopy (EGD) (09/20/24) S/P ERCP (12/02/23) History of laparoscopic cholecystectomy (~11/29/23) Family History Mother Breast cancer Thyroid condition Depression affecting Father Family history unknown Social History Household Members: None Housing: Apartment Are you a primary adult care provider to a significant other at home: No Do you presently have visiting nurse or other home services: No Comment: counts correct Patient Tobacco Use Status: Never used Tobacco Second Hand Smoke Exposure: No Advance Directives Date on File: 12/07/23 service: No Physical Exam Vital Signs: Last Vital Signs Temp 97.2 F 12/26/24 10:01 Pulse 93 12/26/24 10:01 BP 133/53 L 12/26/24 10:01 Pulse Ox 98 12/26/24 10:01 Oxygen Delivery Method Room Air 12/26/24 10:01 GI Inspection: Yes incision (Clean, dry, intact.) Assessment & Plan Assessment & Plan (1) S/P laparoscopic sleeve gastrectomy: Code(s): Z98.84 - Bariatric surgery status Category: Surgical Plan: POD 7 s/p LSG on 12/19/[address] Gatica Weight loss prior to surgery was 26.6 pounds or 7.8 % TBWL. Original weight on 09/01/2024 was 337.4 pounds and op weight was 310.8 pounds. Be sure to text Dr Gatiac exactly 1 week after surgery your weight from your home scale so he can adjust your meal plan. Continue meal plan until f/u w Tiki in 2 weeks May shower, no submersion in bath for another week Continue abdominal binder with activity and exercise for the next 2 weeks. Exercise prior to surgery was stationary bike and may resume No abdominal exercises for 6 weeks post operatively Will be emailed link to post op video for review Reminded of the pace of drinking, 2 mL per minute, 1 oz/15 min.
[2024-12-26 10:01] VITALS: BP 133/53; PULSE 93; TEMP 36.2; O2SAT 98; BMI 47.1
--- OUTSIDE RECORDS SUMMARY | 2024-12-26 11:14 | XMS_ITS | Data Portability ---
Author Organization [facility], , [facility] Address [address] [place] [address] Care Team Providers Care Leather Worker Name Role Phone SUSHMA GIANG Primary Care Provider [facility] Commodities Clerk [facility] WEIGH T MANAGEMENT PROGRAM OTHER Assessment Encounter Date Assessment Date Assessment LastModified by Organization Details LastModified Time 05/20/2023 05/20/2023 After a discussion of treatment options, which included consideration of best practices and patient preferences, the following treatment plan and objectives were adopted: [email or web address] Not available 05/20/2023 10:35:26 Plan of Treatment Reminders Order Date Submit Date Provider Last Modified By Organization Details Last Modified Time Details Appointments None recorded. Lab CBC 2024 025 [facility], [address] [place] [address], [address], 5 03:01:58 testosteron e, total, serum 2024 025 [facility], [address] [place] [address], [address], 5 03:01:58 pap, LB + HPV - Is this patient taking hormones (y/n)? IF yes, what type? 2024 025 [email or web address] [facility] (Pathology), [address] [place], [address], 5 13:29:36 HPV E6+E7 mRNA, qualitative PCR, cervix - CC TO DOCTOR #[id number] [facility] CYTOLOGY 2024 025 [facility], [address] [place] [address], [address], 5 14:19:00 BMP, serum or plasma 2016 017 [facility], [address] [place] [address], [address], 7 10:36:04 HbA1c (hemoglobin A1c), blood 2016 017 [facility], [address] [place] [address], [address], 7 10:21:32 lipid panel, serum 2016 017 [facility], [address] [place] [address], [address], 7 10:36:05 LDL, direct, serum 2016 017 [facility], [address] [place] [address], [address], 7 10:36:06 TSH, serum or plasma 2016 017 [facility], [address] [place] [address], [address], 7 12:17:51 Referral None recorded. Procedures None recorded. Surgeries None recorded. Imaging MAMMO, screening, tomosynthes is, bilateral - 2nd Look Consult/Kym g Mammo/US Breast/Guid ed Asp/Breast Bx/Clip Placement, as clinically indicated. 2024 025 [facility] (Imaging), [address], [place], [address], 5 07:55:29 Medication Orders omeprazole 20 mg capsule,del ayed release 2022 023 [email or web address] [id number], [address] [facility], [place], [address], 5 15:27:02 Patient TargetsNo targets recorded. Patient Instructions Encounter Date Encounter Id Patient Instructions Last Modified By Organization Details Last Modified Time 03/02/2017 [id number] Well Visit, Ages 18 to 65: Care [...] and beans. Not available 03/02/2017 14:30:53 05/20/2023 [id number] Well Visit, Ages 18 to 65: Care Instructions [email or web address] Not available 05/20/2023 10:02:03 Reason for Referral None Reported. Results Created Date Observation Date Name Description Value Unit Range Abnormal Flag Note LastModifiedBy Organization Detail LastModifiedTime 03/02/20 17 03/03/2017 HbA1c (hemo globi n A1c), blood hemoglobin A1C 5.2 % 4.8-6. 0 Goal: <7% in Patie nts with Diabe alejandra Not Available [address], [address], 03/03/2017 10:21:32 03/02/20 17 03/03/2017 HbA1c (hemo globi n A1c), blood estimated average glucose 102.5 mg/dL Not Available [address], [address], 03/03/2017 10:21:32 03/02/20 17 03/03/2017 BMP, serum or plasm a glucose 79 mg/dL 70-100 Not Available [address], [address], 03/03/2017 10:36:04 03/02/20 17 03/03/2017 BMP, serum or plasm a BUN 15 mg/dL 7-18 Not Available [address], [address], 03/03/2017 10:36:04 03/02/20 17 03/03/2017 BMP, serum or plasm a creatinine 0.8 mg/dL 0.8-1. 3 Not Available [address], [address], 03/03/2017 10:36:04 03/02/20 17 03/03/2017 BMP, serum or plasm a B/C 18.8 ratio Not Available [address], [address], 03/03/2017 10:36:04 03/02/20 17 03/03/2017 BMP, serum or plasm a GFR -non 96.4 mL/mi n Recom israel d GFR by the Natio nal Kidne y Found ation >60 mL/mi n/1.7 3m2 - Laney l <60 mL/mi n/1.7 3m2 - Chron ic Kidne y Disea se <15 mL/mi n/1.7 3m2 - Kidne y Failu re Not Available [address], [address], 03/03/2017 10:36:04 03/02/20 17 03/03/2017 BMP, serum or plasm a GFR - if 110.8 mL/mi n For Afric an Ameri can patie nts: Resul ts Multi plied by 1.21 Not Available [address], [address], 03/03/2017 10:36:04 03/02/20 17 03/03/2017 BMP, serum or plasm a sodium 145 mmol/ L 136-14 5 Not Available [address], [address], 03/03/2017 10:36:04 03/02/20 17 03/03/2017 BMP, serum or plasm a potassium 4.8 mmol/ L 3.5-5. 1 Not Available [address], [address], 03/03/2017 10:36:04 03/02/20 17 03/03/2017 BMP, serum or plasm a chloride 107 mmol/ L 96-107 Not Available [address], [address], 03/03/2017 10:36:04 03/02/20 17 03/03/2017 BMP, serum or plasm a anion gap 8.9 5.0-15 .0 Not Available [address], [address], 03/03/2017 10:36:04 03/02/20 17 03/03/2017 BMP, serum or plasm a CO2 29 mmol/ L 21-32 Not Available [address], [address], 03/03/2017 10:36:04 03/02/20 17 03/03/2017 BMP, serum or plasm a calcium 9.1 mg/dL 8.5-10 .3 Not Available [address], [address], 03/03/2017 10:36:04 03/02/20 17 03/03/2017 lipid panel , serum cholesterol 108 mg/dL <200 mg/dl Reagan able 200-2 39 mg/dl Borde rline High >240 mg/dl High Not Available [address], [address], 03/03/2017 10:36:05 03/02/20 17 03/03/2017 lipid panel , serum triglyceride s 53 mg/dL <150 mg/dL Laney l 150-1 99 mg/dL Borde rline High 200-4 99 mg/dL High >500 mg/dL Very High Not Available [address], [address], 03/03/2017 10:36:05 03/02/20 17 03/03/2017 lipid panel , serum direct HDL 43 mg/dL Not Available [address], [address], 03/03/2017 10:36:05 03/02/20 17 03/03/2017 LDL, direc [...] with 0-1 risk facto r is not geraldo cheney. Not Available [address], [address], 03/03/2017 10:36:06 03/02/20 17 03/03/2017 TSH, serum or plasm a TSH 2.01 uIU/m L 0.50-6 .00 The Ameri can Colle ge of Endoc rinol ogy and Ameri can Thyro id Assoc iatio n recom mend goal TSH value s betwe en 0.4-4 .0 mIU/m L. Not Available [address], [address], 03/03/2017 12:17:51 11/16/19 25 11/21/2024 HPV MRNA E6/E7 HPV MRNA E6/E7 NEGATI VE negati ve normal Metho dolog y: Trans cript ion-M ediat ed Ampli ficat ion This assay detec ts E6/E7 viral messe nger RNA (mRNA ) from 14 high- risk HPV types (16,1 8,31, 33,35 ,39,4 5,51, 52,56 ,58,5 9,66, 68). Not Available [address], [address], 11/21/2024 14:19:00 11/16/19 25 11/24/2024 PAP TEST path report [facility] [address] [address] Lab Direc tor: Amol reynolds MD ALTERATIONS SEWER Cytol ogy Repor t Acces meryl #: [id number] FINAL DIAGN OSIS A. PAP SMEAR (THIN PREP) CE: SPECI MEN ADEQU ACY: Satis facto ry for evalu ation ; trans forma tion zone prese nt. INTER PRETA TION: NEGAT OLE FOR INTRA EPITH ELIAL LESIO N OR MALIG JOSIAH . This speci men was valeria zed by the autom ated ThinP rep Imagi ng Syste m ([employer]. ) and the selec tom field s were revie wed by a cytot eve tello. Elect cecily bennett Annemarie d Out By: Zackary Correa er, CT( CP) The Pap test is a scree concepcion test prima rily for squam ous cance rs and precu rsors and has assoc iated false -nega tive and false -posi tive resul ts. New techn ologi es such as liqui d-bas ed prepa ratio ns may decre ase but will not elimi daniel all false -nega tive resul ts. Regul ar sampl ing and follo w-up of unexp paulino d clini sathya signs and sympt oms are recom israel d to minim ize false negat ole resul ts. CLINI SATHYA HISTO RY Date of Last Menst rual Perio d: Other Clini sathya Condi tions : Scree concepcion Pap SPECI MEN SOURC E A: PAP SMEAR (THIN PREP) CE Patie nt Name: MARCIA ERICKSON AM : [birth year] (Age: 34) Sex: F 0 Insti tutio n: [facility] Locat ion: [facility] Date of Colle ction : 2024 Date of Acces meryl: 025 Repor tom: 025 09:29 Resul ts to: Bernardo Glass Not Available [facility] (Outpatient) [address] [place], [address], 11/24/2024 11:04:31 11/26/19 24 11/26/2023 US, abdom en, limit ed No observ ation record ed. [email or web address] [address], [address], 11/26/2023 15:48:40 12/03/19 24 12/02/2023 fluor oscop ic guide d injec tion (PROC ) No observ ation record ed. [email or web address] [address], [address], 12/06/2023 13:46:17 12/13/19 24 11/29/2023 CT, abdom en + pelvi s No observ ation record ed. [address], [address], 12/15/2023 13:43:34 10/31/19 25 09/07/2024 XR, chest No observ ation record ed. [address], [address], 11/01/2024 08:23:13 11/10/19 25 09/22/2024 US, abdom en No observ ation record ed. [address], [address], 11/22/2024 13:30:43 11/23/19 25 11/23/2024 MAMMO , scree concepcion, tomos ynthe sis, bilat eral MAMMO, SCREEN , MADDI, BILAT: 11/23/19 25. BI-RAD S: 1 CLINIC AL: 34-yea r old Female for Bilate ral Screen ing Mammog garth. Sooer- Percyzick lifeti me risk of 22.2%. Curren t report ed family histor y of [...] 2024 at 07:55: 04 AM Luis Armando dexter Physic jamee: Josep Phan ms [facility] (Imaging) [address] [place], [address], 11/23/2024 17:13:14 Result Notes None recorded. Problems Name Problem SNOMED Code Status Onset Date Resolution Date Notes Provider Name and Address Organization Details Recorded Time Morbid obesity 958867226 Active 2015 Litzy Walker NP [address] [place] [address] [place], [address], [facility] 6 14:35:00 Contraception care Active 2016 Dariela Roa PA-C [address] [place] [address] [place], [address], [facility] 7 14:40:18 Family history of breast cancer 922902630 Active 2016 Dariela Roa PA-C [address] [place] [address] [place], [address], [facility] 7 14:40:20 Pancreatitis 75901134 Active 2023 Kathryn Caballero, MACHINIST CLASS B null, [facility] 4 10:54:36 Steatosis of liver 318043518 Active 2024 SUSHMA REYES PA-C [address] [place] [address], [address], [facility] 13:30:35 Problem Notes None recorded. Procedures Surgical History Date Name Laterality Status Provider Name and Address Organization Details Recorded Time 05/20/20 Depression Screening completed JANUARY SADE-DA SALBADOR, DNP [address] [place] [address], [phone], [facility] 05/20/2023 10:14:51 05/20/20 prevention-annual alcohol misuse screening completed JANUARY SADE-DA SALBADOR, DNP [address] [place] [address], [address], [facility] 05/20/2023 10:14:56 cholecystectomy completed Estefania Hodges PA-C [address] [place] [address], [address], [facility] 11/29/2023 14:54:51 Imaging Results Imaging Date Name Status LastModified by Organization Details LastModified Time 11/26/2023 US, abdomen, limited completed [address], [address], 11/26/2023 15:48:40 12/02/2023 fluoroscopic guided injection (PROC) completed [email or web address] [address], [address], 12/06/2023 13:46:17 11/29/2023 CT, abdomen + pelvis completed [address], [address], 12/15/2023 13:43:34 09/07/2024 XR, chest completed [address], [address], 11/01/2024 08:23:13 09/22/2024 US, abdomen completed [facility] [address] [facility], [place], [address], 11/22/2024 13:30:43 11/23/2024 MAMMO, screening, tomosynthesis, bilateral completed [facility] [address], [place], [place], [address], 11/23/2024 17:13:14 Procedure Notes None recorded. Medical Equipment None [...] completed Not Available Not Available Not Available Miralax 17 gram/dose oral powder Take 17 g every day by oral route. active 1/day Per [facility] jovan note Not Available Not Available Not Available Colace [...] completed Not Available Not Available Not Available ondansetron 4 mg disintegrat ing tablet Place 1 tablet twice a day by transling ual route as needed. active Per t jovan note Not Available Not Available Not Available oxycodone 5 mg tablet 11/16 completed Not Available Not Available Not Available sucralfate 10mL PO BID Per [facility] Jovan Note active Not Available Not Available No t Available pantoprazol e 40mg qd Per [facility] Jovan Note active Not Available Not Available No t Available Vitals Date Recorded Body height Body weight Body mass index (BMI) Heart rate Systolic blood pressure Diastolic blood pressure Provider Name and Address Organization Details Last Updated DateTime 7 166.37 cm 276437. 89 g 53.9 kg/m2 72 /min 128 mm[Hg] 72 mm[Hg] Gretchen Mchugh [facility] 7 13:44:41 Date Recorded Body weight Body mass index (BMI) Body height Heart rate Oxygen saturation Oxygen saturation in Arterial blood by Pulse oximetry Systolic blood pressure Diastolic blood pressure Provider Name and Address Organization Details Last Updated DateTime 3 977697. 55 g 60.1 kg/m2 165.1 cm 77 /min 98 % 98 % 110 mm[Hg] 68 mm[Hg] Carla Cooney [facility] 3 10:03:57 Date Recorded Body height Body mass index (BMI) Body weight Oxygen saturation Oxygen saturation in Arterial blood by Pulse oximetry Heart rate Systolic blood pressure Diastolic blood pressure Provider Name and Address Organization Details Last Updated DateTime 3 165.1 cm 58.4 kg/m2 059168. 92 g 99 % 99 % 78 /min 120 mm[Hg] 70 mm[Hg] BONI Koo [facility] 3 10:58:22 Date Recorded Body weight Body mass index (BMI) Body height Oxygen saturation Oxygen saturation in Arterial blood by Pulse oximetry Heart rate Systolic blood pressure Diastolic blood pressure Provider Name and Address Organization Details Last Updated DateTime 5 131684 g 52.3 kg/m2 165.1 cm 98 % 98 % 72 /min 106 mm[Hg] 60 mm[Hg] Shanna Concepcion [facility] 5 15:33:06 Date Recorded Body height Body weight Body mass index (BMI) Heart rate Oxygen saturation Oxygen saturation in Arterial blood by Pulse oximetry Systolic blood pressure Diastolic blood pressure Provider Name and Address Organization Details Last Updated DateTime 6 166.37 cm 549512. 79 g 50.9 kg/m2 76 /min 99 % 99 % 142 mm[Hg] 94 mm[Hg] Milly Leblanc [facility] 6 14:01:19 Social History Question Answer Notes LastModified by Organizat ion Details LastModified Time Tobacco Smoking Status Never Smoker 11/16/24 Shanna Concepcion [facility] 11/16/2024 15:28:18 What Is Your Level Of Alcohol Consumption? Occasional No Alcohol Over summer05/20/23 [email or web address] Information not available 05/20/2023 Do You Wear A Helmet When Biking? Yes [email or web address] Information not available 11/16/2024 What Is Your Level Of Caffeine Consumption? Occasional No Caffiene Over summer05/20/23 1 A Day [email or web address] Information not available 11/16/2024 How Much Tobacco Do You Chew? None Information not available 10/25/2015 Are You Currently Employed? Yes [email or web address] Information not available 05/20/2023 What Type Of Diet Are You Following? REGULAR [email or web address] Information not available 05/20/2023 Which Illicit Or Recreational Drugs Have You Used? 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 No [email or web address] Information not available 05/20/2023 Are There Any Guns Present In Your Home? No Information not available 10/25/2015 Do You Use Insect Repellent Routinely? Yes Information not available 11/16/2024 Live Alone Or With Others? With Others Information not available 03/02/2017 Patient Has Health Care Proxy Signed And In Chart Yes Given To Pt 05/20/23 [email or web address] Information not available 05/21/2023 Marital Status Single Informatio n not available 10/25/2015 Mosquito Repellent Used Routinely No Information not available 10/25/2015 What Was The Date Of Your Most Recent Tobacco Screening? 08/26/2023 [email or web address] Information not available 08/26/2023 How Many Children Do You Have? 0 Information not available 10/25/2015 Do You Use Your Seat Belt Or Car Seat Routinely? Yes [email or web address] Information not available 11/16/2024 Seat Belts Used Routinely No More Than Half The Time Information not available 10/25/2015 Are You Sexually Active? No Information not available 03/02/2017 Smoke Alarm In Home Yes [email or web address] Information not available 10/25/2015 Do You Have Smoke And Carbon Monoxide Detectors In Your Home? Yes [email or web address] Information not available 05/20/2023 Are You Passively Exposed To Smoke? No [email or web address] Information not available 05/20/2023 General Stress Level Medium Work Related- Was Working 60hrs/week Information not available 10/25/2015 Do You Use Any Illicit Or Recreational Drugs? No [email or web address] Information not available 05/20/2023 Do You Use Sunscreen Routinely? Yes Information not available 11/16/2024 Do You Or Have You Ever Used Any Other Forms Of Tobacco Or Nicotine? No [email or web address] Information not available 05/20/2023 Sex: Unknown Functional Status Question Answer Note LastModified by Organization D etails LastModified Time What is your exercise level? Moderate [email or web address] Information not available 05/20/2023 Mental Status None [...] cancer (mid-late 30s), Medical History Condition Response Obesity Y Chronic Neck Pain Gynecological History Statement/Question Response Menses Monthly N History of Abnormal Pap Y Current Control Method Implant Obstetrics History GPAL:G 0 P 0 0 0 0 Immunizations Vaccine Type Date Status Note Provider Nam e and Address Organization Details Recorded Time Td (adult), 5 Lf tetanus toxoid, preservative free, adsorbed 6 completed Not Available [facility] 11/04/2019 02:34:59 Influenza, split virus, trivalent, preservative 5 completed Jennifer Raymond [facility] 10/25/2015 11:24:25 Influenza, split virus, quadrivalent, PF 3 completed Isaura Rosas. [address] [place] [address], [address], [facility] 08/26/2023 11:04:08 COVID-19, mRNA, LNP-S, bivalent, PF, 50 mcg/0.5 mL or 25mcg/0.25 mL dose 1 completed BONI Koo, [facility] 08/26/2023 09:25:55 COVID-19, mRNA, LNP-S, bivalent, PF, 50 mcg/0.5 mL or 25mcg/0.25 mL dose 1 completed BONI Koo, [facility] 08/26/2023 09:26:03 COVID-19, mRNA, LNP-S, bivalent, PF, 50 mcg/0.5 mL or 25mcg/0.25 mL dose 1 completed BONI Koo, [facility] 08/26/2023 09:26:10 COVID-19, mRNA, LNP-S, bivalent, PF, 50 mcg/0.5 mL or 25mcg/0.25 mL dose 2 completed BONI Koo, [facility] 08/26/2023 09:26:19 Past Encounters Encounter ID Performer Location Encounter Start Date Encounter Closed Date Diagnosis/Indication Diagnosis SNOMED-CT Code Diagnosis ICD10 Code Diagnosis Note [id number] Sumi Javed PA-C , [facility], OFFICE [address] [place] [address] 10/25/2015 11:18:25 10/25/2015 12:07:14 Administration of diphtheria and tetanus vaccine 85456672 Z23 Family his tory of breast cancer 952969330 Z80.3 refer for genetic testing. will need to start mammograms early. Oligomenorrhea 26448405 N91.5 more obvious in the last 8 [...] have been accomplish ed so far. Obesity 612033175 E66.9 Under the care of [facility]. WIll update referral. She walks a lot. Please with her 40 pound weight loss so far. Using Apps to monitor her activitiy levels. [id number] Jennifer Raymond , [facility], OFFICE [address] [place] [address] 11/19/2015 09:37:35 11/19/2015 10:16:47 Abnormal cervical Papanicolaou smear 372572711 R87.619 He records made it to us but the pap pathology did not. She will contact her previous provider to have them send it because it is her second abnormal. She will need a colpo. Sinusitis 61387901 J32.9 probiotics encouraged . push fluids, humidified air, nasal saline. follow up if symptoms persist or worsen. [id number] Litzy Walekr NP , [facility], OFFICE [address] [place] [address] 03/30/2016 13:43:31 03/30/2016 14:48:33 Dizziness 315423408 R42 Unclear etiologyun sure if allergies contributi ng. ? blood sugarwill start with labs below Morbid obesity 409863865 E66.01 BMI 50 [id number] Dariela Roa PA-C , [facility], [address]ICE [address] [place] [address] 03/02/2017 13:35:27 03/02/2017 14:24:02 Adult health examination 920609586 Z00.01 Benign exam.PAP UTD at gyne. Counseling 087197112 Z71 .9 Morbid obesity 521224271 E66.01 Hasn't had labs at [facility] yet. Will update. F/u pending results. Increased weight gain due to job stress and 60hr work weeks. Plans on getting back to exercise and better eating habits, less work hours this summer. No longer seeing weight management . Family his tory of breast cancer 861592241 Z80.3 Pt did not go to genetics as referred last year. Pt states Mom was negative for BRCA genes so she doesn't want to be tested at this time. Understand s importance of starting mammogram screenings early. Contraception care 84490 5005 Z30.40 Pt reports getting nexplanon implant in August 2016 at [facility] office-- no record in chart. Pt declines wanting to see an endocrinol ogist. Unclear if PCOS workup ever done. [id number] JANUARY FANTASMA PALOMARES DNP , [facility], OFFICE [address] [place] [address] 05/20/2023 09:48:37 05/20/2023 10:55:40 Adult health examination 724030236 Z00.00 USPSTF guidelines reviewed and discussed with patientPAP UTD ALTERATIONS SEWER 2020encour aged routine eye and dental care Depression screening 171 704233 Z13.31 ; depression screening tool administer ed Screening for alcohol abuse 315724530 Z13.39 10/29, negative auditAlcoh ol use screening tool administer ed Swelling o f right foot 297739597 M79.89 unilateral right foot edema since 10/2022. No suspicion for DVT or Alberto's cyst. ? lymphedema .she will wear her compressio n socks and let this APPLIANCE COUNSELOR know if edema improves [id number] Isaura Rosas . , [facility], OFFICE [address] [place] [address] 08/26/2023 10:38:54 08/26/2023 11:20:08 Active or passive immunization 142252775 Z23 flu shot today. Epigastric pain 36831712 R10.13 ? GERD, will try omeprazole 20 mg daily.avoi d carbonatio n, minimize tomato sauce, spicy food, greasy foods, mint, chocolate, limit caffeine, do not eat late at night, smaller portions.i f sx persist or worsen let us know. [id number] SUSHMA DRAKE PA-C , [facility], OFFICE [address] [place] [address] 11/16/2024 15:18:48 11/17/2024 13:19:01 Adult health examination 459421417 Z00.00 USPSTF guidelines reviewedPa p- will do today/obta inedMammo- mom hx breast ca--double mastectomy age 38. Pt to starts screening. [place]- declines family hx Vaccines-U TDLabs-UTD Blood pressure- WNLEncoura ged regular dental and vison examinatio ns. In weight loss clinic through [facility] at [place] [address] 0lbs,exerc ising Depression screening 171 524205 Z13.31 depression screening tool administer ed. neg. Screening for alcohol abuse 858773474 Z13.39 Alcohol use screening tool administer ed. neg. Screening for malignant neoplasm of cervix 643226432 Z12.4 Obtained Screening mammography 24 341921 Z12.31 Early screening Morbid obesity 543067472 E66.01 Seeing [facility] Irregular periods 927789 07 N92.6 Periods q3 weeks with intermitte [...] Gallego Member ID Guarantor Name 03/30/2016 1 [place] [facility] Emma Rachele Almanza [id number] Emma Rachele Almanza 03/02/2017 1 [facility] HE[facility] PLAN - NAVIGATOR (PPO) [id number] Emma Rachele Almanza [id number] Emma Rachele Almanza 05/20/2023 1 [facility] [id number] 1 Emma L Rachele Almanza [id number] Emma Rachele Almanza 08/26/2023 1 [facility] [id number] 1 Emma L L Cami [id number] Emma L Cami 11/16/2024 1 [facility] [id number] 1 Emma L L [place] [id number] Emma L Cami Notes Date Note Type Note Provider Name [...] does not sleep well Litzy Walker NP [address] [place], [address], [facility] 03/30/2016 14:38:43 03/02/2017 text/html Risk Assessment and [...] to work. Denies depression/anxiety. Dariela Roa PA-C [address] [place], [phone], [facility] 03/02/2017 14:41:32 05/20/2023 text/html Risk Assessment and [...] Presents to establish care today works at [employer] had nexplanonevery 3 weeks period SH:None FHno changes JANUARY HENOK STALLINGS [address] [place], [phone], [facility] 05/20/2023 10:37:30 08/26/2023 text/html Comes in with [...] once or twice a day. Isaura Rosas. [address] [place], [phone], [facility] 08/26/2023 11:15:57 11/16/2024 text/html Risk Assessment and [...] Presents to establish care today works at [employer] had nexplanonevery 3 weeks period SH:None FHno changes SUSHMA SANDHU PA-C [address] [place] [address], [phone], [facility] 11/17/2024 09:10:18 OBGyn Episode No OBEpisode recorded.
== END 2024-12-26 10:39 | disposition home or self-care (01) ==
LOC: HO.HBS 09:51
PROVIDERS: PCP Family Medicine; Visit Provider Physician Assistant Surgical
DX: Z98.84 Bariatric surgery status (principal)
CPT/HCPCS: 99024

== ENCOUNTER 2024-12-28 09:11 | Outpatient (AMB) | payer OTHER, SELFPAY ==
--- NOTE | 2024-12-28 09:05 | A.OFFWM_ITS ---
Intake Intake Visit Reasons: VIDEO PO LSG 12/19/24 Allergies No Known Allergies Allergy (Verified 12/19/24 06:13) PFSH Medical History Anxiety Back pain Insomnia Morbid obesity Surgical History History of esophagogastroduodenoscopy (EGD) (09/20/24) S/P ERCP (12/02/23) History of laparoscopic cholecystectomy (~11/29/23) Family History Mother Breast cancer Thyroid condition Depression affecting Father Family history unknown Social History Household Members: None Housing: Apartment Are you a primary animal daycare provider to a significant other at home: No Do you presently have visiting nurse or other home services: No Comment: counts correct Patient Tobacco Use Status: Never used Tobacco Second Hand Smoke Exposure: No Advance Directives Date on File: 12/07/23 service: No Behavioral Health Assessment Weight Management Therapy Therapy Notes Details Subjective: The patient underwent bariatric surgery on 12/19/2024. She reports a smooth recovery with no significant issues or challenges encountered. Objective: The patient presents for a follow-up behavioral health appointment after bariatric surgery. During the session, we discussed her recovery progress, daily functioning, and overall routine. The conversation included adjustments to her meal plan, pain management, and her support system. Emphasis was placed on the importance of regular weekly communication and adherence to the prescribed meal plan to avoid complications. We also addressed expectations, mindset, and attitudes regarding the outcomes of her care, based on her communication with providers. Ad ditionally, the patient was provided with practical tips and techniques for success in the post-operative phase of her recovery. A PHQ-9 was administered to assess her mental health status. Assessment/Response: * Mental Status: Within normal limits (WNL) * Risk: No significant risks identified. Food/Weight/Diet Expectations of change The initial goal is to lose 10% of her weight before surgery, about 34 lbs. Ultimate weight goal: 303lbs before surgery Pt Started the program in 09/01/2024 at 337 lbs, most recent weight 338 lbs. Today's weight (10/09/2024): 327Lbs. Surgery day weight: 294Lbs PO weight 12/26/24: 284Lbs. PT's target weight: None. PT is implementing the following: Current meal plan: 3 shakes, (1 scoop w/ almond milk), additionally drinking water w/ crystal light. Reminded pace of drinking per Provider's last note. Exercise plan: started yesterday. Doing the stationary bike. Questionnaires PHQ-9 Over the last 2 weeks, how often have you been bothered by any of the following problems? 1. Little interest or pleasure in doing things: not at all 2. Feeling down, depressed, or hopeless: not at all 3. Trouble falling or staying asleep, or sleeping too much: several days 4. Feeling tired or having little energy: more than half the days (Normal due to recent surgery. ) 5. Poor appetite or overeating: not at all 6. Feeling bad about yourself - or that you are a failure or have let yourself or your family down: not at all 7. Trouble concentrating on things, such as reading the newspaper or watching television: not at all 8. Moving or speaking so slowly that other people could have noticed. Or the opposite - being so fidgety or restless that you have been moving around a lot more than usual: not at all 9. Thoughts that you would be better off or of hurting yourself in some way: not at all Total score: 3 Depression Screening Interpretation: Negative Depression Screening Done: Yes 24565 - PHQ-9 Billing: Yes Source: Developed by Drs. Nelson Ahumada, Ania Domínguez, Vinod Hinojosa and colleagues, with an educational jelena from [employer]. Assessment & Plan Assessment & Plan (1) Adjustment disorder: Code(s): F43.20 - Adjustment disorder, unspecified Plan * The patient appears stable and expressed that she does not feel the need for further visits with this provider at this time. * Advised the patient to join the Facebook support group for additional community support. * Reminded the patient that she can schedule appointments with this provider at any time, should the need arise. Telehealth Telehealth Telehealth Platform: D[employer]D4[employer] Location of provider rendering services: other Location of patient: address on file Patient Identification confirmed using: Name, : Yes Telehealth method: voice only Patient verbally consented to treatment: Yes Patient verbally consented to billing insurance company: Yes Patient informed of any privacy concerns related to visit: Yes Minutes spent on Phone/Video with Pt.: 45 Coding Level of Care Code Established Pt Tele Psytx 45 mins (04269) Patient Type Established Diagnoses Adjustment disorder F43.20 Additional Codes PHQ-9 - 03171 - PHQ-9 Billing: Yes ([id number]) Time Spent (min) 45
== END 2024-12-28 09:45 | disposition home or self-care (01) ==
LOC: HO.HBST 09:11
PROVIDERS: PCP Family Medicine; Visit Provider Counselor Mental Health
DX: F43.20 Adjustment disorder, unspecified (principal)
CPT/HCPCS: 90834

== ENCOUNTER → 2024-12-28 09:11 | Outpatient (BNVA) | payer OTHER, SELFPAY | PROVIDERS: PCP Family Medicine; Visit Provider Counselor Mental Health ==

== ENCOUNTER 2025-01-05 06:50 | Outpatient (REF) | payer OTHER, SELFPAY ==
--- NOTE | ~2025-01-05 | XR_ITS ---
CLINICAL HISTORY: R07.89 - Other chest pain ; PT states she had bariatric surgery a few weeks ago, p ain upon inspiration in chest for 2 days. 2 view chest x-ray Comparison: CR/SR - XR CHEST 2V - 09/07/24 07:38 EST Findings: The lungs are clear. Normal size heart. No acute fracture. IMPRESSION: 1. No acute cardiopulmonary abnormality. This document has been electronically signed by: Aileen Kent on 01/05/2025 07:56:16
[2025-01-05 07:06] LABS: MANUAL DIFF FLAG NO
[2025-01-05 07:22] LABS: Basophils Percent Auto 0.4 % (0-2); Eosinophils Absolute Auto 0.1 X10*3/uL (0.0-0.4); Eosinophils Percent Auto 1.3 % (0-4); Hematocrit 41.5 % (37.0-47.0); Hemoglobin 13.7 g/dl (12.0-16.0); Imm Gran Abs Auto 0.02 X10*3/uL (0.00-0.03); Imm Gran Pct Auto 0.3 % (0.0-0.4); Lymphocytes Percent Auto 28.1 % (20-40); Mean Corpuscular Hemoglobin 28.7 pg (27.0-33.0); Mean Corpuscular Volume 86.8 fL (80.0-98.0); Mean Platelet Volume 11.2 fL (9.4-12.3); Monocytes Absolute Auto 0.5 X10*3/uL (0.1-1.2); Monocytes Percent Auto 6.3 % (2-11); Neutrophils Absolute Auto 4.6 x10*3/uL (2.0-8.3); Neutrophils Percent Auto 63.6 % (45-73); Platelet Count 169 X10*3/uL (160-400); Red Blood Count 4.78 X10*6/uL (4.20-5.50); Red Cell Distribution Width 13.8 % (11.0-16.0); White Blood Count 7.2 X10*3/uL (4.8-10.8)
[2025-01-05 07:45] LABS: Alanine Aminotransferase 46 U/L (0-31); Albumin Level 3.8 g/dL (3.5-5.0); Alkaline Phosphatase 90 U/L (39-117); Anion Gap 14 (12-20); Aspartate Amino Transferase 26 U/L (5-31); Bilirubin Direct 0.4 mg/dL (0.0-0.5); Bilirubin Total 0.8 mg/dL (0.0-1.0); Blood Urea Nitrogen 13 mg/dL (9-16); Calcium 9.3 mg/dL (8.4-10.2); Carbon Dioxide 26 mmol/L (22-29); Chloride 105 mmol/L (96-108); Estimated Glomerular Filt Rate > 60; Glucose Random 82 mg/dL (60-115); Potassium 4.4 mmol/L (3.3-5.1); Sodium 141 mmol/L (135-145); Total Protein 7.5 g/dL (6.5-8.0)
== END 2025-01-05 06:51 | disposition home or self-care (01) ==
LOC: HO.XRAY 06:50
PROVIDERS: Visit Provider Physician Assistant Surgical
DX: R07.89 Other chest pain (principal); M25.519 Pain in unspecified shoulder
CPT/HCPCS: 36415; 71046; 80053; 82248; 85025

== ENCOUNTER → 2025-01-05 07:06 | Outpatient (BNV) | payer OTHER, SELFPAY | PROVIDERS: Visit Provider Radiology Vascular & Interventional Radiology | DX: R07.89 Other chest pain (principal); Z98.84 Bariatric surgery status | CPT/HCPCS: 71046 ==

== ENCOUNTER 2025-01-05 10:48 | Outpatient (AMB) | payer OTHER, SELFPAY ==
--- NOTE | 2025-01-05 10:57 | MHC.OFFVISWM ---
VS Expanded 01/05/25 11:02 BP 125/62 Blood Pressure Location Rt brachial Blood Pressure Position Sitting Pulse 72 Pulse Source Pulse Oximeter Temp 97.3 F Temperature Source Temporal Artery Scan Pulse Oximetry 99 Oxygen Delivery Method Room Air Height 5 ft 5 in Weight 279 lb 0.6 oz BMI 46.4 Body Fat % 51.3 Body Fat Mass 43.4 Fat Free Mass 136.2 Visceral Fat Rating 16.0 Body Water % 34.9 Body Water Mass 97.6 Muscle Mass/Score 129.4 Basal Metabolic Rate/Score 1,987 Intake Visit Reasons: (OV) PO LSG 12/19/24 Allergies No Known Allergies Allergy (Verified 01/05/25 10:59) HPI Comments Details: This?a?34?yo female who is s/p LSG without hiatal hernia repair on?12/19/2024. Presents for 2 week post op visit. She had called the office yesterday complaining of inspirational chest pain, more right-sided and upper back over the last 2 days. Denied sick contacts, fevers, chills. No significant complaints of cough. Worse with deep inspiration. We requested she come into the office today for evaluation. Additionally, I did order labs for her to have done prior to coming into the office in addition to chest x-ray. Labs and diagnostic imaging were benign. She reports that this morning she had a rather forceful sneeze with expression of significant nasal mucus and improvement in her symptoms overall per her report. Weight today is 279.6 pounds, with a BMI of 46.5. There has been a 57.8 pound weight loss,(initial weight 337.4 pounds) since starting the program on 09/01/2024 reflecting a 17.1 % total body weight loss and a weight loss of 31.2 pounds since surgery (operative weight 310.8 pounds) reflecting a 10 % TBWL since surgery. No complaints of nausea, emesis, abdominal pain or reflux. Reports infrequent but normal bowel movements every 4-5 days and uses stool softeners regularly. Present meal plan includes: Pure protein 1 scoop at 8-10, 11-1, 2-4 pure protein bar 5-8 drinking 50-55 oz water ? Exercise routine includes: walking outside, 4 days, 1 hr stationary bike at home [facility] Medical History Anxiety Back pain Insomnia Morbid obesity Surgical History History of esophagogastroduodenoscopy (EGD) (09/20/24) S/P ERCP (12/02/23) History of laparoscopic cholecystectomy (~11/29/23) Family History Mother Breast cancer Thyroid condition Depression affecting Father Family history unknown Social History Household Members: None Housing: Apartment Are you a primary zoo caretaker to a significant other at home: No Do you presently have visiting nurse or other home services: No Comment: counts correct Patient Tobacco Use Status: Never used Tobacco Second Hand Smoke Exposure: No Advance Directives Date on File: 12/07/23 service: No Physical Exam Chest Other: Reproducible Mild tenderness with AP and lateral compression especially of the right chest Resp Effort & Inspection: normal respiratory effort Auscultation: clear to auscultation bilaterally Assessment & Plan Assessment & Plan (1) S/P laparoscopic sleeve gastrectomy: Code(s): Z98.84 - Bariatric surgery status Category: Surgical Plan: Patient is doing well and tolerating her shakes and bar. We discussed the importance of tracking her calories when she is walking outside. She may return to using her stationary bike at home. We will have her return to the office in approximately 3 weeks. (2) Costochondritis: Code(s): M94.0 - Chondrocostal junction syndrome [Tietze] Category: Medical Plan: Lab data and diagnostic imaging were reassuring. No evidence of fracture or acute infection. 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 She will take Tylenol as needed. Continued encouragement with use of incentive spirometry to avoid any atelectasis. She was reassured with this diagnosis and we will text with any worsening symptoms Orders: Orders Liver Panel Today M25.519 - Pain in unspecified shoulder, R07.89 - Other chest pain XR chest 2V Today M25.519 - Pain in unspecified shoulder, R07.89 - Other chest pain Complete Blood Count Auto Diff Today M25.519 - Pain in unspecified shoulder, R07.89 - Other chest pain Comprehensive Met. Panel Today M25.519 - Pain in unspecified shoulder, R07.89 - Other chest pain Medications: New docusate sodium (Colace) 100 mg PO DAILY 90 caps 0RF
[2025-01-05 11:02] VITALS: BP 125/62; PULSE 72; TEMP 36.3; O2SAT 99; BMI 46.4
== END 2025-01-05 11:24 | disposition home or self-care (01) ==
LOC: HO.HBS 10:49
PROVIDERS: PCP Family Medicine; Visit Provider Physician Assistant Surgical
DX: Z98.84 Bariatric surgery status (principal); M94.0 Chondrocostal junction syndrome [Tietze]
CPT/HCPCS: 99024

== ENCOUNTER 2025-01-15 13:01 | Outpatient (AMB) | payer OTHER, SELFPAY ==
--- NOTE | 2025-01-15 12:36 | A.OFFVIS_ITS ---
VS Expanded 01/15/25 12:38 Height 5 ft 5 in Weight 278 lb 4 oz BMI 46.3 Intake Visit Reasons: TV PO LSG 12/19/24 Allergies No Known Allergies Allergy (Verified 01/05/25 10:59) Medication List - Last Reconciled 01/15/25 by KATY Dunlap docusate sodium (Colace) 100 mg PO DAILY melatonin 5 mg PO BEDTIME PRN pantoprazole 40 mg PO DAILY sucralfate 10 mL PO BID HPI Comments Details: This?is a?34?yo female who is s/p LSG 12/19/2024. Presents for 4 week post op visit. Weight loss of 1 lb since last OV 3 weeks ago.? No complaints of nausea, emesis, abdominal pain or reflux, or constipation. Taking Colace which is helpful. Initial weight 337.4 pounds. Pt reports she is improved however coming down with a cold, no SOB, no fevers. Present meal plan includes: Pure Protein shakes x 3, 1 scoop at 8-10, 11-1, 2-4 Pure protein bar taking MVI most days ok with fluids, some days lower- lately lower Exercise routine includes: walking outside every day, 1 hr; also has stationary bike at home [facility] Medical History Anxiety Back pain Insomnia Morbid obesity Surgical History History of esophagogastroduodenoscopy (EGD) (09/20/24) S/P ERCP (12/02/23) History of laparoscopic cholecystectomy (~11/29/23) Family History Mother Breast cancer Thyroid condition Depression affecting Father Family history unknown Social History Household Members: None Housing: Apartment Are you a primary administrator health care facility to a significant other at home: No Do you presently have visiting nurse or other home services: No Comment: counts correct Patient Tobacco Use Status: Never used Tobacco Second Hand Smoke Exposure: No Advance Directives Date on File: 12/07/23 service: No Telehealth Telehealth Telehealth Platform: Telephone Location of provider rendering services: other Location of patient: address on file Patient Identification confirmed using: Name, : Yes Telehealth method: voice only Patient verbally consented to treatment: Yes Patient verbally consented to billing insurance company: Yes Patient informed of any privacy concerns related to visit: Yes Minutes spent on Phone/Video with Pt.: 16 Assessment & Plan Assessment & Plan (1) S/P laparoscopic sleeve gastrectomy: Code(s): Z98.84 - Bariatric surgery status Category: Surgical (2) Morbid obesity: Code(s): E66.01 - Morbid (severe) obesity due to excess calories Category: Medical Plan Pt will continue meal plan with Dr Colon as well as weekly communication. Reviewed heavy lifting restriction. Does not need to wear binder unless wants to for comfort. Pt will work on ensuring fluid intake is to goal each day. RTC 1 month.
[2025-01-15 12:38] VITALS: BMI 46.3
--- OUTSIDE RECORDS SUMMARY | 2025-01-15 14:37 | XMS_ITS | Data Portability ---
Author Organization [facility], , [facility] Address [address] [place] [address] Care Team Providers Care Mat Roller Name Role Phone SUSHMA GIANG Primary Care Provider [facility] Speech Therapist Early Intervention [facility] WEIGH T MANAGEMENT PROGRAM OTHER Assessment Encounter [...] Appointments None recorded. Lab CBC 2024 025 [facility], [address] [place] [address], [address], 5 03:01:58 testosteron e, total, serum 2024 025 [facility], [address] [place] [address], [address], 5 03:01:58 pap, LB + HPV - Is this patient taking hormones (y/n)? IF yes, what type? 2024 025 [email or web address] [facility] (Pathology), [address] [place], [address], 5 13:29:36 HPV E6+E7 mRNA, qualitative PCR, cervix - CC TO DOCTOR #[id number] [facility] CYTOLOGY 2024 025 [facility], [address] [place] [address], [address], 5 14:19:00 BMP, serum or plasma 2016 017 [facility], [address] [place] [address], [address], 7 10:36:04 HbA1c (hemoglobin A1c), blood 2016 017 [facility], [address] [place] [address], [address], 7 10:21:32 lipid panel, serum 2016 017 [facility], [address] [place] [address], [address], 7 10:36:05 LDL, direct, serum 2016 017 [facility], [address] [place] [address], [address], 7 10:36:06 TSH, serum or plasma 2016 017 [facility], [address] [place] [address], [address], 7 12:17:51 Referral None recorded. Procedures None recorded. Surgeries None recorded. Imaging MAMMO, screening, tomosynthes is, bilateral - 2nd Look Consult/Kym g Mammo/US Breast/Guid ed Asp/Breast Bx/Clip Placement, as clinically indicated. 2024 025 [facility] (Imaging), [address], [place], [address], 5 07:55:29 Medication Orders omeprazole 20 mg capsule,del ayed release 2022 023 [email or web address] [id number], [address] [facility], [place], [address], 5 15:27:02 Patient TargetsNo targets recorded. Patient Instructions Encounter Date Encounter Id Patient Instructions Last Modified By Organization Details Last Modified Time 03/02/2017 [id number] Well Visit, Ages 18 to 65: Care [...] and beans. Not available 03/02/2017 14:30:53 05/20/2023 [id number] Well Visit, Ages 18 to 65: Care Instructions [email or web address] Not available 05/20/2023 10:02:03 Reason for Referral None Reported. Results Created Date Observation Date Name Description Value Unit Range Abnormal Flag Note LastModifiedBy Organization Detail LastModifiedTime 03/02/20 17 03/03/2017 HbA1c (hemo globi n A1c), blood hemoglobin A1C 5.2 % 4.8-6. 0 Goal: <7% in Patie nts with Diabe alejandra Not Available [address], [address], 03/03/2017 10:21:32 03/02/20 17 03/03/2017 HbA1c (hemo globi n A1c), blood estimated average glucose 102.5 mg/dL Not Available [address], [address], 03/03/2017 10:21:32 03/02/20 17 03/03/2017 BMP, serum or plasm a glucose 79 mg/dL 70-100 Not Available [address], [address], 03/03/2017 10:36:04 03/02/20 17 03/03/2017 BMP, serum or plasm a BUN 15 mg/dL 7-18 Not Available [address], [address], 03/03/2017 10:36:04 03/02/20 17 03/03/2017 BMP, serum or plasm a creatinine 0.8 mg/dL 0.8-1. 3 Not Available [address], [address], 03/03/2017 10:36:04 03/02/20 17 03/03/2017 BMP, serum or plasm a B/C 18.8 ratio Not Available [address], [address], 03/03/2017 10:36:04 03/02/20 17 03/03/2017 BMP, serum or plasm a GFR -non 96.4 mL/mi n Recom israel d GFR by the Natio nal Kidne y Found ation >60 mL/mi n/1.7 3m2 - Laney l <60 mL/mi n/1.7 3m2 - Chron ic Kidne y Disea se <15 mL/mi n/1.7 3m2 - Kidne y Failu re Not Available [address], [address], 03/03/2017 10:36:04 03/02/20 17 03/03/2017 BMP, serum or plasm a GFR - if 110.8 mL/mi n For Afric an Ameri can patie nts: Resul ts Multi plied by 1.21 Not Available [address], [address], 03/03/2017 10:36:04 03/02/20 17 03/03/2017 BMP, serum or plasm a sodium 145 mmol/ L 136-14 5 Not Available [address], [address], 03/03/2017 10:36:04 03/02/20 17 03/03/2017 BMP, serum or plasm a potassium 4.8 mmol/ L 3.5-5. 1 Not Available [address], [address], 03/03/2017 10:36:04 03/02/20 17 03/03/2017 BMP, serum or plasm a chloride 107 mmol/ L 96-107 Not Available [address], [address], 03/03/2017 10:36:04 03/02/20 17 03/03/2017 BMP, serum or plasm a anion gap 8.9 5.0-15 .0 Not Available [address], [address], 03/03/2017 10:36:04 03/02/20 17 03/03/2017 BMP, serum or plasm a CO2 29 mmol/ L 21-32 Not Available [address], [address], 03/03/2017 10:36:04 03/02/20 17 03/03/2017 BMP, serum or plasm a calcium 9.1 mg/dL 8.5-10 .3 Not Available [address], [address], 03/03/2017 10:36:04 03/02/20 17 03/03/2017 lipid panel , serum cholesterol 108 mg/dL <200 mg/dl Reagan able 200-2 39 mg/dl Borde rline High >240 mg/dl High Not Available [address], [address], 03/03/2017 10:36:05 03/02/20 17 03/03/2017 lipid panel , serum triglyceride s 53 mg/dL <150 mg/dL Laney l 150-1 99 mg/dL Borde rline High 200-4 99 mg/dL High >500 mg/dL Very High Not Available [address], [address], 03/03/2017 10:36:05 03/02/20 17 03/03/2017 lipid panel , serum direct HDL 43 mg/dL Not Available [address], [address], 03/03/2017 10:36:05 03/02/20 17 03/03/2017 LDL, direc [...] r is not geraldo cheney. Not Available [address], [address], 03/03/2017 10:36:06 03/02/20 17 03/03/2017 TSH, serum or plasm a TSH 2.01 uIU/m L 0.50-6 .00 The Ameri can Colle ge of Endoc rinol ogy and Ameri can Thyro id Assoc iatio n recom mend goal TSH value s betwe en 0.4-4 .0 mIU/m L. Not Available [address], [address], 03/03/2017 12:17:51 11/16/19 25 11/21/2024 HPV MRNA E6/E7 HPV MRNA E6/E7 NEGATI VE negati ve normal Metho dolog y: Trans cript ion-M ediat ed Ampli ficat ion This assay detec ts E6/E7 viral messe nger RNA (mRNA ) from 14 high- risk HPV types (16,1 8,31, 33,35 ,39,4 5,51, 52,56 ,58,5 9,66, 68). Not Available [address], [address], 11/21/2024 14:19:00 11/16/19 25 11/24/2024 PAP TEST path report [facility] [address] [place] [address] Lab Direc tor: Amol reynolds MD ELECTRONIC ORGAN TECHNICIAN Cytol ogy Repor t Acces meryl #: [...] ated ThinP rep Imagi ng Syste m ([employer]. ) and the selec tom field [...] Resul ts to: Bernardo Glass Not Available [facility] (Outpatient) [address] [place], [address], 11/24/2024 11:04:31 11/26/19 24 11/26/2023 US, abdom en, limit ed No observ ation record ed. [email or web address] [address], [address], 11/26/2023 15:48:40 12/03/19 24 12/02/2023 fluor oscop ic guide d injec tion (PROC ) No observ ation record ed. [email or web address] [address], [address], 12/06/2023 13:46:17 12/13/19 24 11/29/2023 CT, abdom en + pelvi s No observ ation record ed. [address], [address], 12/15/2023 13:43:34 10/31/19 25 09/07/2024 XR, chest No observ ation record ed. [address], [address], 11/01/2024 08:23:13 11/10/19 25 09/22/2024 US, abdom en No observ ation record ed. [address], [address], 11/22/2024 13:30:43 11/23/19 25 11/23/2024 MAMMO , [...] Armando dexter Physic jamee: Josep Phan ms [facility] (Imaging) [address] [place], [address], 11/23/2024 17:13:14 Result Notes None recorded. Problems Name Problem SNOMED Code Status Onset Date Resolution Date Notes Provider Name and Address Organization Details Recorded Time Morbid obesity 706667105 Active 2015 Litzy Walker NP [address] [place] [address] [place], [address], [facility] 6 14:35:00 Contraception care Active 2016 Dariela Roa PA-C [address] [place] [address] [place], [address], [facility] 7 14:40:18 Family history of breast cancer 821396505 Active 2016 Dariela Roa PA-C [address] [place] [address] [place], [address], [facility] 7 14:40:20 Pancreatitis 22404137 Active 2023 Kathryn Caballero, ADVERTISING SPECIALIST null, [facility] 4 10:54:36 Steatosis of liver 503115205 Active 2024 SUSHMA REYES PA-C [address] [place] [address], [address], [facility] 13:30:35 Problem Notes None recorded. Procedures Surgical History Date Name Laterality Status Provider Name and Address Organization Details Recorded Time 12/20/19 25 laparoscopic sleeve gastrectomy completed Crys Gardner RN [facility] 12/26/2024 15:06:38 05/20/20 23 Depression Screening completed JANUARY ALEJANDRA SIU, HENOK [address] [place] [address], [address], [facility] 05/20/2023 10:14:51 05/20/20 23 prevention-annual alcohol misuse screening completed JANUARY ALEJANDRA SIU DNP [address] [place] [address], [address], [facility] 05/20/2023 10:14:56 cholecystectomy completed Estefania Hodges PA-C [address] [place] [address], [phone], [facility] 11/29/2023 14:54:51 Imaging Results Imaging Date Name Status LastModified by Organization Details LastModified Time 11/26/2023 US, abdomen, limited completed [email or web address] [address], [address], 11/26/2023 15:48:40 12/02/2023 fluoroscopic guided injection (PROC) completed [email or web address] [address] [place], [address], 12/06/2023 13:46:17 11/29/2023 CT, abdomen + [email or web address] [address] [place], [address], 12/15/2023 13:43:34 09/07/2024 XR, chest completed [facility] [address] [place], [address], 11/01/2024 08:23:13 09/22/2024 US, abdomen completed [facility] [address] [place], [address], 11/22/2024 13:30:43 11/23/2024 MAMMO, screening, tomosynthesis, bilateral completed [facility] (Imaging) [address], [place], [address], 11/23/2024 17:13:14 Procedure Notes None recorded. Medical [...] transling ual route as needed. active Per Wgt jovan note Not Available Not [...] Details Last Updated DateTime 7 166.37 cm 521166. 89 g 53.9 kg/m2 72 /min 128 mm[Hg] 72 mm[Hg] Gretchen Mchugh [facility] 7 13:44:41 Date Recorded Body weight Body mass index (BMI) Body height Heart rate Oxygen saturation Oxygen saturation in Arterial blood by Pulse oximetry Systolic blood pressure Diastolic blood pressure Provider Name and Address Organization Details Last Updated DateTime 3 [address]. 55 g 60.1 kg/m2 165.1 cm 77 /min 98 % 98 % 110 mm[Hg] 68 mm[Hg] Carla Cooney [facility] 3 10:03:57 Date Recorded Body height Body mass index (BMI) Body weight Oxygen saturation Oxygen saturation in Arterial blood by Pulse oximetry Heart rate Systolic blood pressure Diastolic blood pressure Provider Name and Address Organization Details Last Updated DateTime 3 165.1 cm 58.4 kg/m2 360401. 92 g 99 % 99 % 78 /min 120 mm[Hg] 70 mm[Hg] BONI Koo [facility] 3 10:58:22 Date Recorded Body weight Body mass index (BMI) Body height Oxygen saturation Oxygen saturation in Arterial blood by Pulse oximetry Heart rate Systolic blood pressure Diastolic blood pressure Provider Name and Address Organization Details Last Updated DateTime 5 259909 g 52.3 kg/m2 165.1 cm 98 % 98 % 72 /min 106 mm[Hg] 60 mm[Hg] Shanna Concepcion [facility] 5 15:33:06 Date Recorded Body height Body weight Body mass index (BMI) Heart rate Oxygen saturation Oxygen saturation in Arterial blood by Pulse oximetry Systolic blood pressure Diastolic blood pressure Provider Name and Address Organization Details Last Updated DateTime 6 166.37 cm 688552. 79 g 50.9 kg/m2 76 /min 99 % 99 % 142 mm[Hg] 94 mm[Hg] Milly Leblanc MA [facility] 6 14:01:19 Social History Question Answer Notes LastModified by Organizat ion Details LastModified Time Tobacco Smoking Status Never Smoker 11/16/24 ARUN Cormier [facility] 11/16/2024 15:28:18 What Is Your Level Of Alcohol Consumption? Occasional No Alcohol Over summer05/20/23 [email or web address] Information not available 05/20/2023 Do You Wear A Helmet When Biking? Yes [email or web address] Information not available 11/16/2024 What Is Your Level Of Caffeine Consumption? Occasional No Caffiene Over summer05/20/23 1 A Day [email or web address] Information not available 11/16/2024 How Much Tobacco Do You Chew? None Information not available 10/25/2015 Are You Currently Employed? Yes [email or web address] Information not available 05/20/2023 What Type Of Diet Are You Following? REGULAR Information not available 05/20/2023 Which Illicit Or Recreational Drugs Have You Used? Denies Information not available 03/02/2017 Education 12 Some College Information not available 10/25/2015 What Is Your Occupation? Member Of [employer] [email or web address] Information not available 05/20/2023 Have There Been Any Changes To Your Family Or Social Situation? No [email or web address] Information not available 05/20/2023 Are There Any Guns Present In Your Home? No Information not available 10/25/2015 Do You Use Insect Repellent Routinely? Yes [email or web address] Information not available 11/16/2024 Live Alone Or With Others? With Others Information not available 03/02/2017 Patient Has Health Care Proxy Signed And In Chart Yes Given To Pt 05/20/23 [email or web address] Information not available 05/21/2023 Marital Status Single Informatio n not available 10/25/2015 Mosquito Repellent Used Routinely No Information not available 10/25/2015 What Was The Date Of Your Most Recent Tobacco Screening? 08/26/2023 [email or web address] Information not available 08/26/2023 How Many Children Do You Have? 0 Information not available 10/25/2015 Do You Use Your Seat Belt Or Car Seat Routinely? Yes [email or web address] Information not available 11/16/2024 Seat Belts Used Routinely No More Than Half The Time Information not available 10/25/2015 Are You Sexually Active? No Information not available 03/02/2017 Smoke Alarm In Home Yes Information not available 10/25/2015 Do You Have Smoke And Carbon Monoxide Detectors In Your Home? Yes [email or web address] Information not available 05/20/2023 Are You Passively Exposed To Smoke? No [email or web address] Information not available 05/20/2023 General Stress Level Medium Work Related- Was Working 60hrs/week Information not available 10/25/2015 Do You Use Any Illicit Or Recreational Drugs? No [email or web address] Information not available 05/20/2023 Do You Use Sunscreen Routinely? Yes [email or web address] Information not available 11/16/2024 Do You Or Have You Ever Used Any Other Forms Of Tobacco Or Nicotine? No Information not available 05/20/2023 Sex: Unknown Functional Status Question Answer Note LastModified by Organization D etails LastModified Time What is your exercise level? Moderate [email or web address] Information not available 05/20/2023 Mental Status None [...] split virus, trivalent, preservative 5 [facility] 11:24:25 Influenza, split virus, quadrivalent, PF 3 completed Isaura Rosas. [address] [place] [address], [address], [facility] 08/26/2023 11:04:08 COVID-19, mRNA, LNP-S, bivalent, PF, 50 mcg/0.5 mL or 25mcg/0.25 mL dose 1 completed Salvadori RMA Logan gee, [facility] 08/26/2023 09:25:55 COVID-19, mRNA, LNP-S, bivalent, PF, 50 mcg/0.5 mL or 25mcg/0.25 mL dose 1 completed BONI Koo [facility] 08/26/2023 09:26:03 COVID-19, mRNA, LNP-S, bivalent, PF, 50 mcg/0.5 mL or 25mcg/0.25 mL dose 1 completed BONI Koo, [facility] 08/26/2023 09:26:10 COVID-19, mRNA, LNP-S, bivalent, PF, 50 mcg/0.5 mL or 25mcg/0.25 mL dose 2 completed Hayes RMDebbie gee [facility] 08/26/2023 09:26:19 Past Encounters Encounter ID Performer Location Encounter Start Date Encounter Closed Date Diagnosis/Indication Diagnosis SNOMED-CT Code Diagnosis ICD10 Code Diagnosis Note [id number] Sumi Javed PA-C , [facility] OFF[place] [address] [place] [address] 10/25/2015 11:18:25 10/25/2015 12:07:14 Administration of diphtheria and tetanus vaccine 35086645 Z23 Family his tory of breast cancer 557842383 Z80.3 refer for genetic testing. will need to start mammograms early. Oligomenorrhea 72351760 N91.5 more obvious in the last 8 months. PCOS suspect. we discussed the possibilit y of seeing endocrinol omar. we reviewed possible OCP use to help manage PCOS but until we know more informatio n about genetic testing in regards to breast cancer we will hold off on estrogen contianing hormone treatments . She will release her records so we can see what labs have been accomplish ed so far. Obesity 870526385 E66.9 Under the care of [facility]. WIll update referral. She walks a lot. Please with her 40 pound weight loss so far. Using Apps to monitor her activitiy levels. [id number] Jennifer Raymond , [facility] OFF[facility] [address] [place] [address] 11/19/2015 09:37:35 11/19/2015 10:16:47 Abnormal cervical Papanicolaou smear 074289893 R87.619 He records made it to us but the pap pathology did not. She will contact her previous provider to have them send it because it is her second abnormal. She will need a colpo. Sinusitis 10181931 J32.9 probiotics encouraged . push fluids, humidified air, nasal saline. follow up if symptoms persist or worsen. [id number] Litzy Walker NP , [facility], OFFICE [address] [place] [address] 03/30/2016 13:43:31 03/30/2016 14:48:33 Dizziness 529851913 R42 Unclear etiologyun sure if allergies contributi ng. ? blood sugarwill start with labs below Morbid obesity 957838983 E66.01 BMI 50 [id number] Dariela Roa PA-C , [facility] OFFICE [address] [place] [address] 03/02/2017 13:35:27 03/02/2017 14:24:02 Adult health examination 425484401 Z00.01 Benign exam.PAP UTD at gyne. Counseling 752706344 Z71 .9 Morbid obesity 590823829 E66.01 Hasn't had labs at [facility] yet. Will update. F/u pending results. Increased weight gain due to job stress and 60hr work weeks. Plans on getting back to exercise and better eating habits, less work hours this summer. No longer seeing weight management . Family his tory of breast cancer 123090738 Z80.3 Pt did not go to genetics as referred last year. Pt states Mom was negative for BRCA genes so she doesn't want to be tested at this time. Understand s importance of starting mammogram screenings early. Contraception care [address] 5007 Z30.40 Pt reports getting nexplanon implant in August 2016 at [facility] office-- no record in chart. Pt declines wanting to see an endocrinol ogist. Unclear if PCOS workup ever done. [id number] JANUARY FANTASMA PALOMARES DNP , [facility], OFFICE [address] [place] [address] 05/20/2023 09:48:37 05/20/2023 10:55:40 Adult health examination 598593618 Z00.00 USPSTF guidelines reviewed and discussed with patientPAP UTD ELECTRONIC ORGAN TECHNICIAN 2020encour aged routine eye and dental care Depression screening 171 847735 Z13.31 ; depression screening tool administer ed Screening for alcohol abuse 195201654 Z13.39 10/29, negative auditAlcoh ol use screening tool administer ed Swelling o f right foot 126014264 M79.89 unilateral right foot edema since 10/2022. No suspicion for DVT or Alberto's cyst. ? lymphedema .she will wear her compressio n socks and let this SENIOR RELIABILITY ENGINEER know if edema improves [id number] Isaura Rosas . , [facility], OFFICE [address] [place] [address] 08/26/2023 10:38:54 08/26/2023 11:20:08 Active or passive immunization 224411125 Z23 flu shot today. Epigastric pain 26036950 R10.13 ? GERD, will try omeprazole 20 mg daily.avoi d carbonatio n, minimize tomato sauce, spicy food, greasy foods, mint, chocolate, limit caffeine, do not eat late at night, smaller portions.i f sx persist or worsen let us know. [id number] SUSHMA DRAEK PA-C , [facility] OFFICE [address] [place] [address] 11/16/2024 15:18:48 11/17/2024 13:19:01 Adult health examination 760805441 Z00.00 USPSTF guidelines reviewedPa p- will do today/obta inedMammo- mom hx breast ca--double mastectomy age 38. Pt to starts screening. [place]- declines family hx Vaccines-U TDLabs-UTD Blood pressure- WNLEncoura ged regular dental and vison examinatio ns. In weight loss clinic through [employer] at [place] [address] 0lbs,exerc ising Depression screening 171 257794 Z13.31 depression screening tool administer ed. neg. Screening for alcohol abuse 641953585 Z13.39 Alcohol use screening tool administer ed. neg. Screening for malignant neoplasm of cervix 274600010 Z12.4 Obtained Screening mammography 24 894438 Z12.31 Early screening Morbid obesity 755426797 E66.01 Seeing [facility] bariatric medicine Irregular periods 382604 07 N92.6 Periods q3 weeks with intermitte [...] Member ID Guarantor Name 03/30/2016 1 [place] [facility] PLAN Emma Almanza [id number] Emma Almanza 03/02/2017 1 [facility] PLAN - NAVIGATOR (PPO) [id number] Emma Almanza [id number] Emma Almanza 05/20/[address] [facility] [id number] Emma Rachele Almanza [id number] Emma Almanza 08/26/[address] [facility] [id number] 1 Emma Rachele Almanza [id number] Emma Almanza 11/16/[address] [facility] [id number] 1 Emma Almanza [id number] Emma Almanza Notes Date Note Type Note [...] not sleep well Litzy Walker NP [address] [place], [address], [facility] 03/30/2016 14:38:43 03/02/2017 text/html Risk Assessment and [...] work. Denies depression/anxiety. Dariela Roa PA-C [address] [place], [address], [facility] 03/02/2017 14:41:32 05/20/2023 text/html Risk Assessment and [...] Presents to establish care today works at [employer] [[email or web address]] had nexplanonevery 3 weeks period SH:None FHno changes JANUARY HENOK STALLINGS [address] [place] [address], [address], [facility] 05/20/2023 10:37:30 08/26/2023 text/html Comes in with [...] or twice a day. Isaura Rosas. [address] [place], [address], [facility] 08/26/2023 11:15:57 11/16/2024 text/html Risk Assessment and [...] Presents to establish care today works at [employer] [[email or web address]] had nexplanonevery 3 weeks period SH:None FHno changes SUSHMA SANDHU PA-C [address] [place] [address], [address], [facility] 11/17/2024 09:10:18 OBGyn Episode No OBEpisode recorded.
== END 2025-01-15 13:01 | disposition home or self-care (01) ==
LOC: HO.HBS 13:01
PROVIDERS: Visit Provider Physician Assistant Surgical
DX: E66.01 Morbid (severe) obesity due to excess calories (principal); Z68.42 Body mass index [BMI] 45.0-49.9, adult; Z98.84 Bariatric surgery status
CPT/HCPCS: 99024

== ENCOUNTER → 2025-01-15 13:01 | Outpatient (BNVA) | payer OTHER, SELFPAY | PROVIDERS: Visit Provider Physician Assistant Surgical | DX: Z98.84 Bariatric surgery status (principal); E66.01 Morbid (severe) obesity due to excess calories ==

== ENCOUNTER 2025-09-06 06:25 | Outpatient (REF) | payer OTHER, SELFPAY ==
--- OUTSIDE RECORDS SUMMARY | 2025-09-06 06:28 | XMS_ITS | Clinical Summary ---
Author Organization [facility] Address [address] [place] [address] Phone Care Team Providers Care Load Out Person Name Role Phone Sumi Javed Primary Care Provider [phone] Allergies No known active allergies Medications methocarbamoL (ROBAXIN) 500 MG tablet Take 1 tablet (500 mg total) by mouth 3 (three) times a day as needed (back pain). 15 tablet 03/02/2022 Active Hospital, Clinic, or Other Facility Administered Medication Ordered Dose Route Frequency Start Date End Date Status etonogestrel (NEXPLANON) subdermal implant 68 mgIndications:Nexplanon insertion 68 mg IDrm Every 3 years 11/15/2019 Active Active Problems Problem Noted Date Diagnosed Date Low grade squamous intraepit helial lesion on cytologic smear of cervix (LGSIL) 11/15/2019 Family History Medical History Relation Comments Dementia Maternal Grandmother Breast cancer Mother Cancer Paternal Grandfather ? tumor Cancer Paternal Grandmother ? of Relation Status Comments Maternal Grandmother Mother Alive Paternal Grandfather Paternal Grandmother Social History Tobacco Use Types Packs/Day Years Used Date Smoking Tobacco: Never Smokeless Tobacco: Never Alcohol Use Standard Drinks/Week Comments Yes 0 (1 standard drink = 0.6 oz pur e alcohol) Education Answer Date Recorded Are you interested in more education? Not on karmen e 02/12/2023 Are you concerned about learning? Not on file 02/12/2023 No 02/12/2023 No 02/12/2023 Digital Access Answer Date Recorded No 03/12/2023 No 03/12/2023 Reliable internet access at home? Not on file 03/12/2023 Device with a working camera? Not on file Comments No Sex and Gender Information Value Date Recorded Sex Assigned at Not on file Legal Sex Female 9:05 PM EDT Gender Identity Not on file Sexual Orientation Not on file Occupation Industry Job Start Date Job End Date [employer]ages [employer] Not on file Not on file Not on f ile Last Filed Vital Signs Vital Sign Reading Time Taken Comments Blood Pressure 122/78 03/02/2022 10:04 AM EDT Pulse 83 03/02/2022 10:04 AM EDT Temperature 36.9 C (98.4 F) 03/02/2022 10:04 AM EDT Respiratory Rate 16 03/02/2022 10:04 AM EDT Oxygen Saturation 98% 03/02/2022 10:04 AM EDT Inhaled Oxygen Concentration - - Weight 167.8 kg (370 lb) 03/02/2022 10:04 AM EDT Height 165.1 cm (5' 5 ) 03/02/2022 10:04 AM EDT Body Mass Index 61.57 03/02/2022 10:04 AM EDT Plan of Treatment Health Maintenance Due Date Last Done Comments Adult Td,Tdap Booster 1990 DEPRESSION SCREENING 2001 HEPATITIS C SCREENING 2007 HIV ONE-TIME SCREENING (18-65 YEARS) 2007 INFLUENZA VACCINE (#1) 2025 COVID-19 VACCINE (2024- season) 2025 12/24/2020, 11/25/2020 PAP SMEAR 11/16/2027 11/16/2024, 02/0 01/2020, 11/21/2019, Additional history exists SMOKING STATUS SCREENING (Once After 26 Yrs) Completed 03/02/2022 HEPATITIS A VACCINES Aged Out No long er eligible based on patient's age to complete this topic HIB VACCINES Aged Out No longer eligi ble based on patient's age to complete this topic MENINGOCOCCAL VACCINES (ACWY) Aged Out No longer eligible based on patient's age to complete this topic MENINGOCOCCAL VACCINES (B) Aged Out N o longer eligible based on patient's age to complete this topic PNEUMOCOCCAL VACCINES (0-49 years) Aged Out No longer eligible based on patient's age to complete this topic Medical Devices Not on file Procedures Procedure Name Priority Date/Time Associated Diagnosis Comments PAP TEST Routine 11/16/2024 12:00 AM EST from Last 3 Months or Most Recently Relevant to Health Maintenance Results * Pap Test (11/16/2024 12:00 AM EST) Report [address] [id number] Relay Telegrapher: Amol Bailey MD [facility] Cytology Report FINAL DIAGNOSIS A. PAP SMEAR (THIN PREP) CE: SPECIMEN ADEQUACY: Satisfactory for evaluation; transformation zone present. INTERPRETATION: NEGATIVE FOR INTRAEPITHELIAL LESION OR MALIGNANCY. This specimen was analyzed by the automated ThinPrep Imaging System ([employer].) and the selected brooks were reviewed by a supervisor electronic testing. Electronically Signed Out By: JUSTINA Ryan(ASCP) The Pap test is a screening test primarily for squamous cancers and precursors and has associated false-negative and false-positive results. New technologies such as liquid-based preparations may decrease but will not eliminate all false-negative results. Regular sampling and follow-up of unexplained clinical signs and symptoms are recommended to minimize false negative results. CLINICAL HISTORY Date of Last Menstrual Period: 11-04-24 Other Clinical Conditions: Screening Pap SPECIMEN SOURCE A: PAP SMEAR (THIN PREP) CE Patient Name: SOPHIA REYNOLDS : 1990 (Age: 34) Sex: F Institution: [facility] Location: [facility] Date of Collection: 11/16/2024 Date of Reported: 11/24/2024 09:29 Results to: Nilam Glass [facility] Final Diagnosis A. PAP SMEAR (THIN PREP) CE: SPECIMEN ADEQUACY: Satisfactory for evaluation; transformation zone present. INTERPRETATION: NEGATIVE FOR INTRAEPITHELIAL LESION OR MALIGNANCY. This specimen was analyzed by the automated ThinPrep Imaging System ([employer].) and the selected brooks were reviewed by a supervisor electronic testing. [facility] Conversion Type (Conversion Source) 11/16/2024 11/20/2024 9:17 AM EST us Nilam BURNS CYTOLOGY ORDER JOSELYN Edited Result - Final [facility] [address] [place], [place] [id number] from Last 3 Months or Most Recently Relevant to Health Maintenance Insurance [facility] NAVIGATOR POS [facility] HMO [facility] [email or web address] POS [facility] HMO VANITA NAVIGATOR POS VANITA NAVIGATOR POS VANITA NAVIGATOR POS [email or web address] HMO [employer] POS Member Subscriber Plan / Payer (Ef fective 2018-Present) Name:Sophia Reynolds Relation to Subscriber:Self Name:Sophia Reynolds Payer ID:[id number] ([facility]) Type:POS Address: [address] [id number] HMO [employer] POS [facility] HMO [facility] Address: [facility] [address] [place] [address] Care Teams Load Out Person Relationship Specialty Start Date End Date Sumi Javed PA [address] [place] [address] [facility] [address] [place] [address] PCP - General Unknown Provider Specialty 03/02/22 Additional Source Comments The information contained in this document represents components of the legal health record. It is not the complete legal health record.[facility]
[2025-09-06 06:40] LABS: MANUAL DIFF FLAG NO
[2025-09-06 07:24] LABS: Hematocrit 40.1 % (37.0-47.0); Hemoglobin 13.1 g/dl (12.0-16.0); Imm Gran Abs Auto 0.02 X10*3/uL (0.00-0.03); Imm Gran Pct Auto 0.3 % (0.0-0.4); Lymphocytes Absolute Auto 2.2 X10*3/uL (1.2-4.9); Mean Corpuscular HGB Conc 32.7 g/dl (31.0-35.0); Mean Corpuscular Hemoglobin 30.0 pg (27.0-33.0); Mean Corpuscular Volume 91.8 fL (80.0-98.0); NRBC Abs Auto 0.000 X10*3/uL (0.0-0.012); NRBC Pct Auto 0.0 /100WBC (0.0-0.2); Platelet Count 187 X10*3/uL (160-400); Red Blood Count 4.37 X10*6/uL (4.20-5.50); White Blood Count 5.9 X10*3/uL (4.8-10.8)
[2025-09-06 07:51] LABS: Alanine Aminotransferase 108 U/L (0-31); Albumin Level 4.1 g/dL (3.5-5.0); Alkaline Phosphatase 106 U/L (39-117); Anion Gap 13 (12-20); Aspartate Amino Transferase 60 U/L (5-31); Blood Urea Nitrogen 21 mg/dL (9-16); Calcium 9.0 mg/dL (8.4-10.2); Carbon Dioxide 27 mmol/L (22-29); Chloride 106 mmol/L (96-108); Cholesterol 130 mg/dL (<200); Estimated Glomerular Filt Rate > 60; HDL Cholesterol 59 mg/dL (>40); Iron 135 mcg/dL (30-160); Percent Iron Saturation 56 % (15-50); Potassium 4.1 mmol/L (3.3-5.1); Sodium 142 mmol/L (135-145); Total Iron Binding Capacity 242 mcg/dL (228-428); Total Protein 6.8 g/dL (6.5-8.0); Triglycerides 42 mg/dL (<150); Unsaturated Iron Binding 107 ug/dL
[2025-09-06 08:07] LABS: Ferritin 60 ng/mL (10-122)
[2025-09-06 08:20] LABS: Folate 16.0 ng/mL (> or = 4.0); Vitamin B12 1216 pg/mL (200-900)
== END 2025-09-06 06:26 | disposition home or self-care (01) ==
LOC: HO.LAB 06:25
PROVIDERS: Visit Provider Physician Assistant Surgical
DX: Z13.1 Encounter for screening for diabetes mellitus (principal); Z98.84 Bariatric surgery status; Z13.29 Encounter for screening for other suspected endocrine disorder; Z13.6 Encounter for screening for cardiovascular disorders
CPT/HCPCS: 36415; 80053; 80061; 82306; 82607; 82728; 82746; 83036; 83525; 83540; 84425; 84443; 84590; 84630; 85025; 86140